=== PATIENT | female | born 1985 | race Caucasian/White ===

== ENCOUNTER 2023-04-02 22:09 | Emergency (ER) | payer SELFPAY ==
[2023-04-02 22:14] VITALS: BP 132/84; PULSE 81; RESP 14; TEMP 36.8; O2SAT 100; BMI 28.3
--- NOTE | 2023-04-02 22:32 | XR_ITS ---
The [address] [address] Patient Name: RIKY ARREAGA MRN: [id number] date: 1985 Sex: F Assigned Patient Location: ER Current Patient Location: ER Accession/Order Number: [id number] Exam Date: 04/02/2023 22:38 Report Date: 04/02/2023 22:52 At the request of: MAO BEAN Procedure: XR hand LT min 3V EXAM: XR hand LT min 3V HISTORY: left hand pain, swelling COMPARISON: None. TECHNIQUE: 3 views of the left hand are performed. FINDINGS: There is no acute fracture. The bony structures are intact. There appears to be mild soft tissue swelling of the fifth digit. XR/XR hand LT min 3V IMPRESSION: Mild soft tissue swelling involving the fifth digit. No acute bony abnormality. Electronically authenticated by: THUY WAY Date: 04/02/2023 22:52
--- NOTE | 2023-04-02 22:33 | ED_ITS ---
HPI - Extremity Problem General Chief complaint: Extremity Problem, Nontraumatic Stated complaint: Upper Extremity Pain Time Seen by Provider: 04/02/23 22:11 Source: patient Mode of arrival: walk-in Limitations: no limitations History of Present Illness HPI Narrative: patient woke with morning and had pain along the 4th and 5th MCP joints of the left hand. No known injury. As the day progressed the pain and swelling worsened and she developed redness to the same area. This steadily worsened throughout the day so she came to the ED to be evaluated. No systemic complaints such as fever or vomiting. Related Data Previous Rx's Medication Instructions Recorded prednisone 20 mg tablet 40 mg (2 x 20 mg) PO DAILY 5 days 04/02/23 #10 tabs Allergies Allergy/AdvReac Type Severity Reaction Status Date / Time No Known Drug Allergies Allergy Verified 04/02/23 22:13 PFSH PFS Social History Smoking status: Current every day smoker Exam Narrative Exam Narrative: Nurses notes and vital signs reviewed and patient is not hypoxic. afebrile General: Well-appearing and in no apparent distress. Skin: Warm, dry, no pallor noted. Eye: Pupils are equal, round and EOMI. No scleral icterus. Cardiovascular: Normal peripheral perfusion. Respiratory: No accessory muscle use or respiratory distress. Musculoskeletal: LEFT HAND - tenderness, swelling and erythema to the left 4th and 5th MCP joints with decreased ROM left 4th and 5th fingers due to the pain. Left wrist, elbow and shoulder with normal ROM, no upper extremity edema/swelling except at the left hand as noted. Neurological: A&O x4. No cranial nerve dysfunction observed. No truncal ataxia. Moves all extremities. Sensation intact. Psychiatric: Cooperative and interactive. Normal mood and affect. Constitutional Vital Signs, click to edit/add: Last Vital Signs Temp 98.3 F 04/02/23 22:14 Pulse 81 04/02/23 22:14 Resp 14 04/02/23 22:14 BP 132/84 04/02/23 22:14 Pulse Ox 100 04/02/23 22:14 O2 Del Method Room Air 04/02/23 22:14 Course Vital Signs Vital signs: Vital Signs Temperature 98.3 F 04/02/23 22:14 Pulse Rate 81 04/02/23 22:14 Respiratory Rate 14 04/02/23 22:14 Blood Pressure 132/84 04/02/23 22:14 Pulse Oximetry 100 12/31/23 22:14 Oxygen Delivery Method Room Air 04/02/23 22:14 Temperature 98.3 F 04/02/23 22:14 Pulse Rate 81 04/02/23 22:14 Respiratory Rate 14 04/02/23 22:14 Blood Pressure 132/84 04/02/23 22:14 Pulse Oximetry 100 04/02/23 22:14 Oxygen Delivery Method Room Air 04/02/23 22:14 MDM - Extremity (Nontraumatic) MDM Narrative Medical decision making narrative: X-rays of the left hand obtained. The patient also had blood drawn to check CBC, sed rate, CRP, uric acid. She was given IM Solu-Medrol and IM Toradol. ESR and CRP elevated. Normal WBC. negative uric acid and no gouty changes on xrays of the left hand. Patient discharged home with prescription for prednisone and the ED nurse applied an belinda wrap to the left hand. ED return if she worsens. Lab Data Attestation: I reviewed the patient's lab results. Labs: Lab Results 04/02/23 Range/Units 22:44 WBC 9.4 (4.0-11.0) 10^3/uL RBC 4.68 (4.20-5.40) 10^6/uL Hgb 13.2 (12.0-16.0) g/dL Hct 39.7 (36.0-48.0) % MCV 84.8 (81.0-99.0) fL MCH 28.2 (26.7-34.0) pg MCHC 33.2 (29.9-35.2) g/dL RDW 13.2 (11.0-15.0) % Plt Count 226 (150-450) 10^3/uL MPV 10.6 (9.5-13.5) fL Neut % (Auto) 54.0 (43.0-75.0) % Lymph % (Auto) 24.9 (20.5-60.0) % [place] % (Auto) 8.0 (1.7-12.0) % Eos % (Auto) 12.3 H (0.9-7.0) % Baso % (Auto) 0.7 (0.2-2.0) % Neut # (Auto) 5.1 (1.4-6.5) 10^3/uL Lymph # (Auto) 2.3 (1.2-3.8) 10^3/uL [place] # (Auto) 0.8 (0.3-0.8) 10^3/uL Eos # (Auto) 1.2 H (0.0-0.7) 10^3/uL Baso # (Auto) 0.1 (0.0-0.1) 10^3/uL Abs Immat Gran (auto) 0.01 (0.00-0.03) 10^3/uL Imm/Tot Granulo (auto) 0.1 (0.0-0.5) % ESR 30 H (<=20) mm/hr Uric Acid 3.9 (2.6-6.0) mg/dL C-Reactive Protein 1.13 H (<=0.50) mg/dL Imaging Data xr left hand: Radiologist's impression: Patient Name: RIKY ARREAGA MRN: [id number] date: 1985 Sex: F Assigned Patient Location: ER Current Patient Location: ER Accession/Order Number: [id number] Exam Date: 04/02/2023 22:38 Report Date: 04/02/2023 22:52 At the request of: MAO BEAN Procedure: XR hand LT min 3V EXAM: XR hand LT min 3V HISTORY: left hand pain, swelling COMPARISON: None. TECHNIQUE: 3 views of the left hand are performed. FINDINGS: There is no acute fracture. The bony structures are intact. There appears to be mild soft tissue swelling of the fifth digit. IMPRESSION: Mild soft tissue swelling involving the fifth digit. No acute bony abnormality. Electronically authenticated by: THUY WAY Date: 04/02/2023 22:52 Discharge Plan Discharge Chief Complaint: Extremity Problem, Nontraumatic Clinical Impression: Metacarpophalangeal joint pain of left hand Patient Disposition: Home, Self-Care Time of Disposition Decision: 23:29 Prescriptions / Home Meds: New prednisone 20 mg tablet 40 mg PO DAILY 5 Days Qty: 10 0RF Instructions: Arthralgia (ED) Stand Alone Forms: Portal Instructions Referrals: Physician,Non-Staff, MD [Primary Care Provider] - 1 week
[2023-04-02] MEDS: METHYLPREDNISOLONE SOD SUCC PF 125 MG/2 ML VIAL IM (22:52)
[2023-04-02] MEDS: KETOROLAC TROMETHAMINE 60 MG/2 ML VIAL IM (22:52)
[2023-04-02 22:55] LABS: Basophils Absolute Auto 0.1 10^3/uL (0.0-0.1); Basophils Percent Auto 0.7 % (0.2-2.0); Eosinophils Absolute Auto 1.2 10^3/uL (0.0-0.7); Eosinophils Percent Auto 12.3 % (0.9-7.0); Hematocrit 39.7 % (36.0-48.0); Hemoglobin 13.2 g/dL (12.0-16.0); Immature Granulocytes Abs Auto 0.01 10^3/uL (0.00-0.03); Immature Granulocytes Pct Auto 0.1 % (0.0-0.5); Lymphocytes Absolute Auto 2.3 10^3/uL (1.2-3.8); Lymphocytes Percent Auto 24.9 % (20.5-60.0); Mean Corpuscular HGB Conc 33.2 g/dL (29.9-35.2); Mean Corpuscular Hemoglobin 28.2 pg (26.7-34.0); Mean Corpuscular Volume 84.8 fL (81.0-99.0); Mean Platelet Volume 10.6 fL (9.5-13.5); Monocytes Absolute Auto 0.8 10^3/uL (0.3-0.8); Neutrophils Absolute Auto 5.1 10^3/uL (1.4-6.5); Platelet Count 226 10^3/uL (150-450); Red Blood Count 4.68 10^6/uL (4.20-5.40); Red Cell Distribution Width 13.2 % (11.0-15.0); White Blood Count 9.4 10^3/uL (4.0-11.0)
[2023-04-02 23:10] LABS: Uric Acid 3.9 mg/dL (2.6-6.0)
[2023-04-02 23:14] LABS: C Reactive Protein 1.13 mg/dL (<=0.50)
[2023-04-02 23:18] LABS: Erythrocyte Sedimentation Rate 30 mm/hr (<=20)
== END 2023-04-03 00:04 | disposition home or self-care (01) ==
PROVIDERS: Emergency Provider Emergency Medicine
DX: M79.642 Pain in left hand (principal); F17.200 Nicotine dependence, unspecified, uncomplicated
CPT/HCPCS: 36415; 73130; 84550; 85025; 85652; 86140; 96372; 99284; J2930

== ENCOUNTER 2024-08-13 14:33 | Emergency (ER) | payer BC, SELFPAY ==
[2024-08-13 14:41] VITALS: BP 120/82; PULSE 125; TEMP 36.6; O2SAT 97; BMI 29.1
--- NOTE | 2024-08-13 14:48 | ED_ITS ---
HPI HPI - General Adult General Chief complaint: Nausea/Vomiting/Diarrhea Stated complaint: VOMITING, NAUSEA, DIARRHEA, BODY ACHES Time Seen by Provider: 08/13/24 14:47 Source: patient Mode of arrival: walk-in Limitations: no limitations History of Present Illness HPI narrative: The patient is a 39-year-old female who presents to the emergency department today for evaluation of concerns for GI symptoms of nausea/vomiting/diarrhea. She endorses her symptoms began overnight and states she has had approximately 3-4 loose stools and 2-3 episodes of emesis. She mention she did take some bmga-uoj-jvzljgk antidiarrheals which did alleviate her diarrhea some in addition to an wluj-lpa-wdvifhq antiemetic which did alleviate her episodes of emesis and she has been tolerating oral intake. She does endorse continuing to feel intermittently nauseous. She denies any fevers but states she has felt flushed at times. No chest pain, shortness of breath, abdominal pain. No urinary symptoms or back/flank pain. She denies any significant medical or surgical history including diabetes. Related Data Previous Rx's ?Medication ?Instructions ?Recorded ondansetron 4 mg disintegrating 4 mg PO Q8H PRN nausea and 08/13/24 tablet vomiting #10 tabs Allergies Allergy/AdvReac Type Severity Reaction Status Date / Time No Known Drug Allergies Allergy Verified 08/13/24 14:46 Review of Systems ROS Status of ROS 10 or more systems reviewed and unremark able except as noted in history and below PFSH PFSH Social History Smoking status: Current every day smoker Little interest or pleasure in doing things: not at all Feeling down, depressed, or hopeless: not at all Exam Narrative Exam Narrative: Constituational: Awake/ alert, no apparent distress, well hydrated HENMT: normocephalic, external ears normal, moist oral mucous membranes and oropharynx normal Eyes: Normal external ears and conjunctivae normal Neck: ROM intact Chest: inspection of chest normal Respiratory: Normal respiratory effort, clear to auscultation bilaterally Cardio: regular rate and regular rhythm GI: soft to palpation and non-tender Back: nontender MSK: ROM intact, +NVI Skin: no rashes or petechiae Neuro: no focal deficits Psych: mental status grossly normal Constitutional Vital Signs, click to edit/add: Last Vital Signs Temp 97.8 F 08/13/24 14:41 Pulse 125 H 08/13/24 14:41 Resp 16 08/13/24 14:41 BP 120/82 08/13/24 14:41 Pulse Ox 97 08/13/24 14:41 O2 Del Method Room Air 08/13/24 14:41 Course Vital Signs Vital signs: Vital Signs Temperature 97.8 F 08/13/24 14:41 Pulse Rate 125 H 08/13/24 14:41 Respiratory Rate 16 08/13/24 14:41 Blood Pressure 120/82 08/13/24 14:41 Pulse Oximetry 97 08/13/24 14:41 Oxygen Delivery Method Room Air 08/13/24 14:41 Temperature 97.8 F 08/13/24 14:41 Pulse Rate 125 H 08/13/24 14:41 Respiratory Rate 16 08/13/24 14:41 Blood Pressure 120/82 08/13/24 14:41 Pulse Oximetry 97 08/13/24 14:41 Oxygen Delivery Method Room Air 08/13/24 14:41 Medical Decision Making MDM Narrative Medical decision making narrative: The patient is a nontoxic and well-appearing 39-year-old female who presented to the emergency department today for evaluation concerns for GI symptoms with nausea/vomiting/diarrhea. Initial examination vital signs overall stable. Supportive measures of Zofran and on reevaluation she reported some improvement in condition. She is tolerating oral intake with no subsequent nausea or vomiting. Discussed consideration for further evaluation in the ER of labs, urinalysis, +/- CT imaging of the abdomen/pelvis vs observation of symptoms and continuation of supportive measures. Patient would like to proceed with supportive measures at this time for likely viral illness, gastroenteritis. Will discharge home with Zofran. Advised on follow-up with patient's primary care provider for reevaluation. Discussed signs and symptoms of any worsening condition and when to consider reevaluation. Patient verbalized an understanding of this and is agreeable with the plan to be discharged home. Medical Records Medical records reviewed: Yes I reviewed the patient's medical records Discharge Plan Discharge Chief Complaint: Nausea/Vomiting/Diarrhea Clinical Impression: Gastroenteritis Patient Disposition: Home, Self-Care Prescriptions / Home Meds: New ondansetron 4 mg tablet,disintegrating 4 mg PO Q8H PRN (Reason: nausea and vomiting) Qty: 10 0RF Print Language: Nigerian Instructions: Gastroenteritis (DC) Additional Instructions: May take Zofran as needed for any nausea or vomiting. May take Tylenol or ibuprofen as needed for any fevers or pain. Stay hydrated and drink plenty of fluids. Recommend following a bland diet as discussed and advance this as tolerated. Please follow-up with your primary care provider for reevaluation as discussed. Referrals: Physician,Non-Staff, MD [Primary Care Provider] - 1 week
--- NOTE | 2024-08-13 14:52 | PC.NURSE ---
pt states she woke up in the middle of the night with diarrhea which progressed to a few bouts of vomiting. is experiencing the same sx. unable to get into PCP today
[2024-08-13] MEDS: ONDANSETRON 4 MG RAPDIS TABLET SL (15:06)
[2024-08-13 15:34] VITALS: PULSE 87; O2SAT 100
--- NOTE | 2024-08-13 15:39 | PC.NURSE ---
pt has not vomited or had diarrhea since being in ER. kept down zofran and has been sipping on water the entire stay.
== END 2024-08-13 15:40 | disposition home or self-care (01) ==
PROVIDERS: Emergency Provider Emergency Medicine
DX: K52.9 Noninfective gastroenteritis and colitis, unspecified (principal); F17.200 Nicotine dependence, unspecified, uncomplicated
CPT/HCPCS: 99283; Q0162

== ENCOUNTER 2024-10-15 10:50 | Outpatient (OUT) | payer BC, SELFPAY ==
--- NOTE | 2024-10-15 10:59 | XR_ITS ---
[facility] [place] [id number] Patient Name: RIKY ARREAGA MRN: [id number] date: 1985 Sex: F Assigned Patient Location: [facility] Current Patient Location: LAB Accession/Order Number: [id number] Exam Date: 10/15/2024 14:58 Report Date: 10/15/2024 15:00 At the request of: FERNANDO METZ DPIvory Procedure: XR foot ARNOLD min 3V 3 views both feet with weightbearing HISTORY: Bilateral foot pain greater on the right. No prior for comparison Mild hallux valgus deformity bilaterally. No acute displaced fracture. Mild degeneration of the toes. Minor midfoot degeneration. Tiny calcaneal spurs. No soft tissue abnormality. XR/XR foot ARNOLD min 3V IMPRESSION: Mild degenerative change. Mild hallux valgus deformity. Impression dictated by: Vick Mercedes M.D. 10/15/2024 3:00 PM Dictation Location: [place] [address] Electronically authenticated by: [id number] Y Date: 10/15/2024 15:00
== END 2024-10-15 10:51 | disposition home or self-care (01) ==
LOC: RAD 10:51
PROVIDERS: Visit Provider Podiatrist Foot & Ankle Surgery
DX: M79.671 Pain in right foot (principal); M79.672 Pain in left foot; M20.12 Hallux valgus (acquired), left foot; M20.11 Hallux valgus (acquired), right foot
CPT/HCPCS: 73630

== ENCOUNTER 2024-10-21 10:33 | Outpatient (OUT) | payer BC, SELFPAY ==
--- NOTE | 2024-10-21 10:47 | MM_ITS ---
Patient Name: RIKY ARREAGA MR#: [id number] : 1985 Exam Date: 10/21/2024 Ordering Doctor: DUSTIN BALDERAS RADIOLOGY REPORT PROCEDURE: MM TOMOSYNTHESIS SCREENING BI COMPARISON: None. INDICATIONS: Screening Calculator Name NCI Breast Cancer Risk Assessment Tool 5 Year Breast Cancer Risk 0.40% Lifetime Breast Cancer Risk 7.40% Personal Breast Cancer No Personal Ovarian Cancer No Treatments None Family Cancers Grandmother-maternal with breast cancer at age ~60; Grandfather-maternal with lung cancer at age 59; Mother with lung cancer at age 55. LOCATION: The [facility] BREAST COMPOSITION: There are scattered areas of fibroglandular density. FINDINGS: RIGHT BREAST: No significant suspicious finding. LEFT BREAST: No significant suspicious finding. DIAGNOSTIC CATEGORY 1--NEGATIVE. RECOMMENDATIONS: ROUTINE MAMMOGRAM AND CLINICAL EVALUATION IN 12 MONTHS. PLEASE NOTE: A NORMAL MAMMOGRAM DOES NOT EXCLUDE THE POSSIBILITY OF BREAST CANCER. A CLINICALLY SUSPICIOUS PALPABLE LUMP SHOULD BE BIOPSIED. Dictated by: Tono Verma MD on 10/21/2024 at 13:37 Approved by: Tono Verma MD on 10/21/2024 at 13:39
== END 2024-10-21 10:34 | disposition home or self-care (01) ==
LOC: MAMMO 10:35
DX: Z12.31 Encounter for screening mammogram for malignant neoplasm of breast (principal); Z80.3 Family history of malignant neoplasm of breast; Z80.1 Family history of malignant neoplasm of trachea, bronchus and lung
CPT/HCPCS: 77063; 77067

== ENCOUNTER 2024-10-21 10:38 | Outpatient (OUT) | payer BC, SELFPAY ==
--- OUTSIDE RECORDS SUMMARY | 2023-03-05 20:00 | XMS_ITS | Continuity of Care Document ---
Author Organization [facility] Address [address] [place] [address] Phone Care Team Providers Care Hatch Boss Name Role Phone LamonthilarioYesi Unavailable Unavailable Allergies, [...] - Active Procedures Procedure Date Acute Detox Outdoor Emergency Care Technician Acute Detox Outdoor Emergency Care Technician Acute Detox Outdoor Emergency Care Technician Acute Detox Outdoor Emergency Care Technician Acute Detox Outdoor Emergency Care Technician Acute Detox Outdoor Emergency Care Technician DRUG TEST PRSMV DIR OPT OBS URINE TEST ROUTINE VENIPUNCTURE Acute Detox Outdoor Emergency Care Technician Acute Detox Outdoor Emergency Care Technician Acute Detox Outdoor Emergency Care Technician Acute Detox Outdoor Emergency Care Technician DRUG TEST PRSMV DIR OPT OBS Acute Detox Outdoor Emergency Care Technician PREV VISIT, EST, AGE 18-39 EST FP [...] Diagnoses Date Provider Providers Copied on Encounter [facility], [address] [place] [address], [id number] , tel: [phone] [facility] No Information Dec-0 4-202 3 Klidas Yesi. [address] [place] [address], [id number] , . tel: [phone] [facility], [address] [place] [address], [id number] , tel: [phone] [facility] No Information Dec-0 3-202 3 Klidas Yesi. [address] [place] [address], [id number] , . tel: [phone] [facility], [address] [place] [address], [id number] , tel: [phone] [facility] No Information Dec-0 2-202 3 Klidas Yesi. [address] [place] [address], [id number] , . tel: [phone] [facility], [address] [place] [address], [id number] , tel: [phone] [facility] No Information Dec-0 1-202 3 Obeydonte Feldman. [address] [place], [address], [place]. tel: [phone] [facility], [address] [place], [place], [id number] , [place] tel: [phone] [facility] No Information 0 3 Neil Key. [address] [place], [place], [id number] , [place]. tel: [phone] [facility], [address] [place], [place], [id number] , [place] tel: [phone] [facility] No Information 3 Neil Key. [address] [place], [place], [id number] , [place]. tel: [phone] [facility], [address] [place], [place], [id number] , [place] tel: [phone] [facility] Opioid dependence with withdrawalEncounter for test, result negative 0 Pavlock DO Max. [address] [place], [place], [id number] , [place]. tel: [phone] [facility], [address] [place], [place], [id number] , [place] tel: [phone] [facility] Opioid dependence with withdrawalEncounter for test, result negative 0 Pavlock DO Max. [address] [place], [place], [id number] , [place]. tel: [phone] [facility], [address] [place], [place], [id number] , [place] tel: [phone] [facility] fentanyl dependence (chief complaint) Opioid dependence with withdrawal 0 Jai Childress. [address] [place], [place], [id number] , [place]. tel: [phone] [facility], [address] [place], [place], [id number] , [place] tel: [phone] [facility] Opioid dependence with withdrawal 0 Pavlock DO Max. [address] [place], [place], [id number] , [place]. tel: [phone] [facility], [address], [place], [id number] , [place] tel: [phone] [facility] Opioid dependence with withdrawal 0 Pavlock DO Max. [address] [place], [place], [id number] , [place]. tel: [phone] [facility], [address] [place], [place], [id number] , [place] tel: [phone] [facility] Opioid dependence with withdrawalEncounter for test, result negative 0 Pavlock DO Max. [address] [place], [place], [id number] , [place]. tel: [phone] [facility], [address] [place], [place], [id number] , [place] tel: [phone] [facility] lab result (chief complaint) No Information 4 [facility] Abigail. [address] [place], [place], [id number] , [place]. tel: [phone] PREV VISIT, [facility], AGE 18-39 [facility], [address] [place], [place], [id number] , [place] tel: [phone] [facility] annual visit (chief complaint) Gynecological ExaminationContact with or exposure to venereal diseases 4 [facility] Abigail. [address] [place], [place], [id number] , [place]. tel: [phone] OFFICE/OUTPA TIENT VISIT, [facility], [address], [place], [id number] , [place] tel: [phone] [facility] No Information 2 Lamp Brenda. [address] [place], [place], [id number] , [place]. tel: [phone] OFFICE/OUTPA TIENT VISIT, [facility], [address], [place], [id number] , [place] tel: [phone] [facility] Routine PN Visit (chief complaint) Supervision of other normal 2 Jesus Gutierrez. [address] [place], [place], [id number] , [place]. tel: [phone] OFFICE/OUTPA TIENT VISIT, [facility], [address], [place], [id number] , [place] tel: [phone] [facility] No Information 2 Jesus Gutierrez. [address] [place] [address], [id number] , [place]. tel: [phone] [facility], [address] [place] [address], [id number] , [place] tel: [phone] [facility] No Information 2 Visci DO Warren. [address], [place], [id number] , [place]. tel: [phone] OFFICE/OUTPA TIENT VISIT, [facility], [address] [place] [address], [id number] , [place] tel: [phone] [facility] No Information 2 Jesus Gutierrez. [address] [place] [address], [id number] , [place]. tel: [phone] [facility], [address] [place] [address], [id number] , [place] tel: [phone] [facility] Screening examination for pulmonary tuberculosis 2 Visci DO Warren. [address] [place] [address], [id number] , [place]. tel: [phone] Family History Family Member Type Diagnosis Age [...] lung Payers Payer name Insurance type Covered republican ID Arsenio jackson(s) Flash Funded 09 [id number] Social History Type Description Quantity Date Captured Comments Sex Female Smoking Status No Information Sexual Orientation Straight or heterosexual Gender Identity Female Chief Complaint And Reason For Visit No Information Reason For Referral Reason For Referral No Information Plan Of Treatment Date Type Action Status Goal Tdap. Due on due Goal Influenza vaccine. Due on due Goal SUPERVISOR BURLING AND JOINING exam. Due on due Goal RLP. Due on due Goal H&P. Due on due Goal Breast exam. Due on due Goal Depression screening. Due on due Goal RLP. Due on due Goal Breast exam. Due on due Goal H&P. Due on due Goal Depression screening. Due on due Goal Influenza vaccine. Due on due Goal Tdap. Due on due Goal SUPERVISOR BURLING AND JOINING exam. Due on due Goal Breast exam. Due on due Goal RLP. Due on due Goal SUPERVISOR BURLING AND JOINING exam. Due on due Goal Tdap. Due on due Goal Influenza vaccine. Due on due Goal Depression screening. Due on due Goal H&P. Due on due Goal RLP. Due on due Goal SUPERVISOR BURLING AND JOINING exam. Due on due Goal Depression screening. Due on due Goal H&P. Due on due Goal Influenza vaccine. Due on due Goal Tdap. Due on due Goal Breast exam. Due on due Goal Tdap. Due on due Goal Breast exam. Due on due Goal Depression screening. Due on due Goal SUPERVISOR BURLING AND JOINING exam. Due on due Goal H&P. Due on due Goal RLP. Due on due Goal Influenza vaccine. Due on due Goal Tdap. Due on due Goal Influenza vaccine. Due on due Goal RLP. Due on due Goal Depression screening. Due on due Goal PPD (TST). Due on 2 due Goal H&P. Due on due Goal SUPERVISOR BURLING AND JOINING exam. Due on due Goal Breast exam. [...]
--- OUTSIDE RECORDS SUMMARY | 2024-09-02 10:00 | XMS_ITS ---
Author Organization [facility] Address [address] [place] [address] Care Team Providers Care Deputy Clerk Name Role Phone Eduin Conti Primary Care Provider REASON FOR VISIT 2 WEEK LAB REVIEW Encounters Encounter Location Date Provider Diagnosis [facility] [address] [place] [address] 09/02/2024 Eduin Conti Plan Of Treatment No Information Progress Notes * GIBSONRIKYDOB: 6 (39 yo F)Acc No.[id number]:09/02/2024 Progress Notes Patient: RIKY ARNETT Appointment Provider: Jessee Conti MD :1985 A ge:39 Y S ex:Female Date:09/02/2024 Address:[address] [id number] Subjective: * Chief Complaints: * 1 . 2 WEEK LAB REVIEW. * Medical History: Objective: * Vitals: Assessment: Plan: * Treatment: * Images: * Electronic signature of Demetrius Conti MD on 10/15/2024 at 10:49 AM EDT Sign off status: Pending * Appointment Provider: Jessee Conti MD Date: 09/02/2024 Generated for Adolfoi wendy/Viky/eTransmitting on: 10/15/2024 10:49 AM EDT
--- OUTSIDE RECORDS SUMMARY | 2024-09-02 10:00 | XMS_ITS ---
Author Organization [facility] Address [address] [place] [address] Care Team Providers Care Diamond Saw Operator Name Role Phone Eduin Conti Primary Care Provider REASON FOR VISIT 2 WEEK LAB REVIEW Encounters Encounter Location Date Provider Diagnosis [facility] [address] [place] [address] 09/02/2024 Eduin Conti Plan Of Treatment No Information Progress Notes * GIBSONRIKYDOB: 6 (39 yo F)Acc No.[id number]:09/02/2024 Progress Notes Patient: RIKY ARNETT Appointment Provider: Jessee Conti MD :1985 A ge:39 Y S ex:Female Date:09/02/2024 Address[address] [id number] Subjective: * Chief Complaints: * 1 . 2 WEEK LAB REVIEW. * Medical History: Objective: * Vitals: Assessment: Plan: * Treatment: * Images: * Electronic signature of Demetrius Conti MD on 10/21/2024 at 10:40 AM EDT Sign off status: Pending * Appointment Provider: Jessee Conti MD Date: 09/02/2024 Generated for Adolfoi wendy/Viky/eTransmitting on: 10/21/2024 10:40 AM EDT
--- OUTSIDE RECORDS SUMMARY | 2024-10-15 09:12 | XMS_ITS ---
Author Organization [facility] Address [address] [place] [address] Care Team Providers Care Psychotherapist Name Role Phone Eduin Conti Primary Care Provider [phone] REASON FOR VISIT MAMMO Encounters Encounter Location Date Provider Diagnosis [facility] [address] [place] [address] 10/15/2024 Eduin Conti Encounter for screening mammogram for malignant neoplasm of breast Z12.31 Assessments Encounter Date Diagnosis (ICD Code) Assessment Notes Treatment Notes Treatment Clinical Notes Section Notes 10/15/2024 Encounter for screening mammogram for malignant neoplasm of breast (ICD-10 - Z12.31) Plan Of Treatment Pending Test Test Name Order Date MM screening mammo BI w/CAD 10/15/2024 Progress Notes * RIKY ARREAGADOB: 6 (39 yo F)Acc No.[id number]:10/15/2024 Patient: RIKY ARNETT :1985 A ge:39 Y S ex:Female Address:[facility] [address] [place], [address] Subjective: * Chief Complaints: * M AMMO * Medical History: * Surgical History: * Hospitalization/Major Diagno stic Procedure: * Medications: Objective: * Vitals: * Physical Examination: Assessment: * Assessment: 1. E ncounter for screening mammogram for malignant neoplasm of breast - Z12.31 (Primary) ? Plan: * Treatment: * Procedure Codes: * true * Date: Generated for Printi ng/Faxing/eTransmitting on: 0 10/21/2024 10:40 AM EDT
--- OUTSIDE RECORDS SUMMARY | 2024-10-15 10:50 | XMS_ITS | Clinical Summary ---
Author Organization [facility] Address [id number] [address] [place] [address] Care Team Providers Care Bleach Range Operator Name Role Phone No Pcp, No Pcp Primary Care Provider Unavailabl e Allergies No known active allergies Medications medroxyPROGESTE Bernard (DEPO-PROVERA) 150 mg/mL injection Inject 150 mg into the appropriate muscle every 3 (three) months. Active sulfamethoxazol e-trimethoprim (BACTRIM DS) 800-160 mg per tablet Take 1 tablet by mouth 2 (two) times a day. Active Social History Tobacco Use Types Packs/Day Years Used Date Smoking Tobacco: Every Day Smokeless Tobacco: Never Childcare Answer Date Recorded Childcare Unknown 09/12/2018 Employment Answer Date Recorded Employment Unknown 09/12/2018 Purpose - Life Answer Date Recorded Purpose and direction in life Unknown Comments No Sex and Gender Information Value Date Recorded Sex Assigned at Not on file Legal Sex Female 11:36 AM EDT Gender Identity Not on file Sexual Orientation Not on file Last Filed Vital Signs Vital Sign Reading Time Taken Comments Blood Pressure 106/67 03/20/2017 10:33 AM EST Pulse 76 03/20/2017 10:33 AM EST Temperature 36.7 C (98.1 F) 03/20/2017 10:33 AM EST Respiratory Rate 16 03/20/2017 10:33 AM EST Oxygen Saturation 98% 03/20/2017 10:33 AM EST Inhaled Oxygen Concentration - - Weight 72.7 kg (160 lb 4.4 oz) 03/20/2017 10:33 AM EST Height 165.1 cm (5' 5 ) 03/20/2017 10:33 AM EST Body Mass Index 26.67 03/20/2017 10:33 AM EST Plan of Treatment Upcoming Encounters Date Type Department Care Team (Late st Contact Info) Description 10/17/2024 11:00 AM EDT Office Visit [facility] [address] [id number] Frances Bee, MOTOR INSTALLER-PROGRAM OFFICER [address] [facility] [address] [place] [address] Health Maintenance Due Date Last Done Comments Depression Screening 1997 Tobacco Screening 1997 Adult BMI Screening 2003 DTaP,Tdap and Td Vaccines (1 - Tdap) 2004 Pap Smear 2006 Influenza Vaccine 12/02/2024 Medical Devices Not on file Insurance [facility] [address] [address] [address] * Guarantor: Francheska Diego Account Type Relation to Patient Date of Phone Billing Address Other Self 1985 [address] [place] [address] Care Teams Bleach Range Operator Relationship Specialty Start Date End Date No Pcp, [place] [address] PCP - General Family Medicine 10/07/16
--- OUTSIDE RECORDS SUMMARY | 2024-10-15 10:50 | XMS_ITS | Clinical Summary ---
Author Organization [facility] Address [address] [place] [address] Care Team Providers Care Plaster Lather Name Role Phone Franc Coppola MD Primary Care Provider [phone] Active Problems Problem Noted Date Diagnosed Date Acquired hallux valgus 10/19/2022 Bilateral carpal tunnel syndrome 10/19/2022 Bunion of left foot 10/19/2022 Contracture of left Achilles tendon 10/19/2022 Contracture, right ankle 10/19/2022 Degeneration, intervertebral disc, lumbar 2022 Fibrocystic breast changes 10/19/2022 Onychomycosis due to dermatophyte 10/19/2022 Other specified re lated conditions, first trimester ([facility]) 10/19/2022 Vaginal bleeding 10/19/2022 Family History Medical History Relation Name Comments No Known Problems Father Brain cancer Maternal Grandfather Lung cancer Maternal Grandfather Breast cancer Maternal Grandmother Brain cancer Mother Breast cancer Mother Lung cancer Mother No Known Problems Paternal Grandfather No Known Problems Paternal Grandmother Relation Name Status Comments Daughter Alive x3 Father Maternal Grandfather Maternal Grandmother Mother Paternal Grandfather Paternal Grandmother Sister x2 Son Alive Social History Tobacco Use Types Packs/Day Years Used Date Smoking Tobacco: Every Day Cigarettes Smokeless Tobacco: Never Tobacco Cessation:Ready to Q uit: Not Asked; Counseling Given: Not Answered Comments:6-10 cigs/day Alcohol Use Standard Drinks/Week Comments Not Currently 0 (1 standard drink = 0.6 oz pure alcohol) Caffeine intake: 1-2 cups per day coffee, soda/pop Education Answer Date Recorded What is the highest level of school you have completed or the highest degree you have received? Some college, no degree 10/19/2022 Comments Unknown Sex and Gender Information Value Date Recorded Sex Assigned at Not on file Legal Sex Female 7:09 PM EDT Gender Identity Not on file Sexual Orientation Not on file Last Filed Vital Signs Vital Sign Reading Time Taken Comments Blood Pressure 108/68 04/28/2021 12:00 PM EST Pulse - - Temperature - - Respiratory Rate - - Oxygen Saturation - - Inhaled Oxygen Concentration - - Weight 90.7 kg (200 lb) 12/16/2021 12:00 PM EDT Height 166.4 cm (5' 5.5 ) 12/16/2021 12:00 PM ED T Body Mass Index 32.78 12/16/2021 12:00 PM EDT Plan of Treatment Health Maintenance Due Date Last Done Comments Medicare Annual Wellness (AWV) 1985 Pap Smear 2006 Influenza Vaccine (#1) 2024 Cervical Cancer Screening 01/06/2025 HPV/Cotest 01/06/2025 01/07/2020 Procedures Procedure Name Priority Date/Time Associated Diagnosis Comments THINPREP TIS PAP REFLEX HPV MRNA E6/E7 (95752) Routine 01/07/2020 from Last 3 Months or Most Recently Relevant to Health Maintenance Results * THINPREP TIS PAP REFLEX HPV MRNA E6/E7 (22345) (01/07/2020) CLINICAL INFORMATION: None given [facility] LMP: 01/05/20 [facility] PREV. PAP: 2019 NEGATIVE [facility] PRE[facility]. BX: None given [facility] SOURCE: Cervix, Endocervix [facility] STATEMENT OF ADEQUACY: SEE COMMENT [facility] Comment: Satisfactory for evaluation. Endocervical/transformation zone component absent. INTERPRETATION /RESULT: Negative for intraepithelial lesion or malignancy. [facility] COMMENT: This Pap test has been evaluated with computer assisted technology. [facility] CYTOTECHNOLOGI ST: SEE COMMENT [facility] Comment: JJK, CT(ASCP) CT screening location: [email or web address] [address]. COMMENT SEE COMMENT [facility] Comment: EXPLANATORY NOTE: The Pap is a screening test for cervical cancer. It is not a diagnostic test and is subject to false negative and false positive results. It is most reliable when a satisfactory sample, regularly obtained, is submitted with relevant clinical findings and history, and when the Pap result is evaluated along with historic and current clinical information. 01/07/2020 us Brett Brenner [facility] Final Result [facility] from Last 3 Months or Most Recently Relevant to Health Maintenance Insurance [employer] Care Teams Plaster Lather Relationship Specialty Start Date End Date Franc Coppola MD [address] [facility] [address] [place] [address] PCP - General Internal Medicine 10/19/22
--- OUTSIDE RECORDS SUMMARY | 2024-10-15 10:50 | XMS_ITS | Patient Health Record ---
Author Organization [facility] Address [address] [place] [address] Care Team Providers Care Shoe Dresser Name Role Phone Eduin Conti Primary Care Provider [phone] Allergies No Known Allergies Reason For Referral No Information Social History Tobacco Use: Social History Observation Description Date Details (start date - stop date) Current Smoker NA - NA Sexual Hx: Question Answer Notes Had sex in the last 12 months (vaginal, oral, or anal)? Yes with Men only Use protection? No Have you ever had an STD? No LMP: 08/01/2024 AUDIT-C (Standard) Question Answer Notes Did you have a drink containing alcohol in the p ast year? No Points 0 Interpretation Negative Tobacco Control (Standard) Question Answer Notes Tobacco use: Current smoker How often do you smoke cigarettes? Every day How many cigarettes a day do you smoke? 6-10 How soon after you wake up d o you smoke your first cigarette? Within 5 minutes Are you interested in quitting? Thinking about q uitting Vital Signs Heart Rate 85 /min 08/19/2024 Temperature 98.2 degrees Fahrenheit 08/19/2024 Respiratory Rate 18 /min 08/19/2024 Oximetry 98 % 08/19/2024 Blood pressure diastolic 94 mm Hg 08/19/2024 Height 65.5 in 08/19/2024 Blood pressure systolic 134 mm Hg 08/19/2024 Weight 185.4 lbs 08/19/2024 BMI 30.38 kg/m2 08/19/2024 Encounters Encounter Location Date Provider Diagnosis [facility] [address] [place] [address] 09/02/2024 Eduin Conti [facility] [address] [place] [address] 08/19/2024 Eduin Conti Encounter to establish care Z76.89 ; Diabetes mellitus screening Z13.1 and Oral thrush B37.0 Assessments Encounter Date Diagnosis (ICD Code) Assessment Notes Treatment Notes Treatment Clinical Notes Section Notes 08/19/2024 Diabetes mellitus screening (ICD-10 - Z13.1) 08/19/2024 Encounter to establish care (ICD-10 - Z76.89) 08/19/2024 Oral thrush (ICD-10 - B37.0) 08/19/2024 Other Discussed patient concerns regarding her recent ER visit and establishing care. I encouraged her to continue drinking plenty of fluids and getting adequate rest. We will order updated labs to establish a baseline of care. I will also order a short course of Diflucan to treat her oral thrush. We will follow up on her blood pressure at her next appointment. Patient is agreeable with this plan and denies any additional questions or concerns. She will follow up in 2 weeks. Body Mass Index: Care Instructions material was published Plan Of Treatment Pending Test Test Name Order Date A1C with Estimated Average Glu 5 Comprehensive Metabolic Panel 08/19/2024 Lipid Panel 08/19/2024 Complete Blood Count Auto Diff 5 Insurance Providers Payer Name Payer Address Payer Phone Subscriber Number Group Number Insured Name Patient Relationship to Insured Coverage Start Date Coverage End Date ANTHEM Primary [address] [place] [phone] [id number] RIKY ARREAGA Self - patient is the insured 4 Medical (General) History Surgical History Surgery Date(Month/Year) carpal tunnel release- right
--- OUTSIDE RECORDS SUMMARY | 2024-10-17 11:00 | XMS_ITS | Encounter Summary ---
Author Organization [employer] s tem Address [facility] [place]-[id number] [address] [place] [address] Care Team Providers Care Human Resources Temp Name Role Phone No Pcp, No Pcp Primary Care Provider Unavailabl e Reason for Visit * Reason Comments Gynecologic Exam Encounter Details Date Type Department Care Team (Latest Contact Info) Description 10/17/2024 11:00 AM EDT Office Visit [facility] Obstetrics/Gynecolog y [address] [facility] [id number] Frances Bee, PATROLLER-COMMANDING OFFICER [employer] [address] [place], [place] [id number] Well woman exam with routine gynecological exam (Primary Dx); Encounter for screening mammogram for malignant neoplasm of breast; Encounter for initial prescription of contraceptive pills; Menorrhagia with regular cycle; Standardized adult depression screening tool completed; Screening for cervical cancer; Pap smear, as part of routine gynecological examination Social History Tobacco Use Types Packs/Day Years Used Date Smoking Tobacco: Every Day Cigarettes Smokeless Tobacco: Never Tobacco Cessation:Ready to Q uit: Not Asked; Counseling Given: Not Answered Alcohol Use Standard Drinks/Week Comments Not Currently 0 (1 standard drink = 0.6 oz pur e alcohol) PHQ-2 Answer Date Recorded Total Score 1 10/17/2024 Childcare Answer Date Recorded Childcare Unknown 09/12/2018 Employment Answer Date Recorded Employment Unknown 09/12/2018 Hunger Screening Answer Date Recorded Within the past 12 months we worried whether our food would run out before we got money to buy more. Never True 10/17/2024 Within the past 12 months th e food we bought just didn't last and we didn't have money to get more. Never True 10/17/2024 Purpose - Life Answer Date Recorded Purpose and direction in life Unknown Comments No Sex and Gender Information Value Date Recorded Sex Assigned at Not on file Legal Sex Female 11:36 AM EDT Gender Identity Not on file Sexual Orientation Not on file documented as of this encounter Last Filed Vital Signs Vital Sign Reading Time Taken Comments Blood Pressure 102/68 10/17/2024 11:03 AM EDT Pulse - - Temperature - - Respiratory Rate - - Oxygen Saturation - - Inhaled Oxygen Concentration - - Weight 81.8 kg (180 lb 6.4 oz) 10/17/2024 11:03 AM EDT Height 166.4 cm (5' 5.5 ) 10/17/2024 11:03 AM ED T Body Mass Index 29.56 10/17/2024 11:03 AM EDT documented in this encounter Patient Instructions * Attachments The following attachments cannot be sent through Care Everywhere. * Calcium and vitamin D for bone health (Tristanian) * Drospirenone, ADULT (Tristanian) * Quitting smoking for adults (Tristanian) documented in this encounter Progress Notes * Frances Bee, SIDNEY-COMMANDING OFFICER [employer] - 10/17/2024 11:00 AM EDT Annual Well Woman Visit 10/17/2024 Deborah Diego is a pleasant 39 y.o. female new patient who presents for annual body liner exam. Periods are regular every 28-30 days, lasting 5 days. Cyclic symptoms include heavy bleeding with large clots, anxiety, bloating, irritability, moodiness, and pelvic pain. Denies intermenstrual bleeding, spotting, or abnormal discharge. Denies pelvic pain. Patient declines STD testing today. Complaints today: Pt is passing clots during her periods. Wants control. Relationship status: in a relationship The patient reports that there is not domestic violence in her life. 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 Smoker (less than 1/4 ppd x 25 yrs), cutting back, planning to quit Children YES How many 4 Current contraception: none History of abnormal Pap smear: yes 10 years ago Last pap: 2019 negative Regular self breast exam: sometimes Last mammogram: yes Family history of breast cancer: yes - Maternal Grandmother, and maternal great aunt Family history of uterine or ovarian cancer: no Family history of pancreatic or prostate cancer: no Family history of colon cancer: no HPV vaccinated: no PHQ9 depression screenin OB History 5 Para 4 Term 4 AB Living 4 SAB IAB Ectopic Multiple Live Births 4 The following portions of the patient's history were reviewed and updated as appropriate: allergies, current medications, past family history, past medical history, past social history, past surgicalhistory and problem list. MEDICAL HX Past Medical History: Diagnosis Date History of blood transfusion SURGICAL HX Past Surgical History: Procedure Laterality Date SECTION WISDOM TOOTH EXTRACTION FAMILY HX Family History Problem Relation Age of Onset No Known Problems Father Cancer Mother 58 Lung cancer Mother MEDS Current Outpatient Medications Medication Sig Dispense Refill drospirenone, contraceptive, 4 mg (28) tablet Take 4 mg by mouth in the morning. 84 tablet 3 No current facility-administered medications for this visit. ALLERGIES No Known Allergies Review of Systems Constitutional: Negative. Respiratory: Negative. Negative for chest tightness and shortness of breath. Cardiovascular: Negative. Negative for chest pain and palpitations. Gastrointestinal: Negative. Negative for constipation, diarrhea, nausea and vomiting. Endocrine: Negative. Genitourinary: Positive for menstrual problem. Negative for dyspareunia and pelvic pain. Musculoskeletal: Negative. Skin: Negative. Allergic/Immunologic: Negative. Neurological: Negative. Hematological: Negative. Psychiatric/Behavioral: Negative. Objective BP 102/68 Ht 166.4 cm (5' 5.5 ) Wt 81.8 kg (180 lb 6.4 oz) BMI 29.56 kg/m?? Physical Exam Vitals and nursing note reviewed. Constitutional: Appearance: Normal appearance. HENT: Head: Normocephalic and atraumatic. Cardiovascular: Rate and Rhythm: Normal rate and regular rhythm. Pulses: Normal pulses. Heart sounds: Normal heart sounds. Pulmonary: Effort: Pulmonary effort is normal. Breath sounds: Normal breath sounds. Chest: Breasts: Breasts are symmetrical. Right: Normal. No mass, skin change or tenderness. Left: Normal. No mass, skin change or tenderness. Abdominal: General: Bowel sounds are normal. Palpations: Abdomen is soft. Genitourinary: General: Normal vulva. Labia: Right: No rash or lesion. Left: No rash or lesion. Vagina: Normal. Cervix: Normal. Uterus: Normal. Not enlarged and not tender. Adnexa: Right adnexa normal and left adnexa normal. Right: No mass, tenderness or fullness. Left: No mass, tenderness or fullness. Musculoskeletal: General: Normal range of motion. Cervical back: Normal range of motion and neck supple. Skin: General: Skin is warm and dry. Neurological: Mental Status: She is alert and oriented to person, place, and time. Psychiatric: Mood and Affect: Mood normal. Speech: Speech normal. Behavior: Behavior normal. Thought Content: Thought content normal. Judgment: Judgment normal. Assessment/Plan: Francheska was seen today for gynecologic exam. Diagnoses and all orders for this visit: Well woman exam with routine gynecological exam Encounter for screening mammogram for malignant neoplasm of breast - Mammography screening bilateral with CAD Encounter for initial prescription of contraceptive pills - POCT , urine - drospirenone, contraceptive, 4 mg (28) tablet; Take 4 mg by mouth in the morning. Menorrhagia with regular cycle - Ultrasound pelvic with transvaginal; Future Standardized adult depression screening tool completed Screening for cervical cancer Pap smear, as part of routine gynecological examination - Thin Prep Pap Test BMI is above average; Discussed eating tips for weight loss and and exercise steps. Recommend breast self-awareness. Notify provider for any breast changes or concerns Discussed healthy lifestyle modifications. Educational material distributed. Follow up in 1 year for annual body liner exam. Follow up as needed. Await pap. Discussed ASCCP screening guidelines. Discussed taking a multivitamin. Discussed Calcium and Vitamin D for prevention of osteoporosis. Discussed recommendations for HPV vaccine between 9-45 yo. [facility]. Discussed need for yearly mammogram after 40 yo. Encouraged smoking cessation. Discussed colon cancer screening recommendations to begin at 45 yo, patient to discuss with PCP. All questions answered. MICHAELA Gupta APRN-[place] Kerr 10/17/24 1210 documented in this encounter Plan of Treatment Pending Results Name Type Priority Associated Diagnoses Date /Time High Risk HPV w/Barb Lab Routine Pap smear, as part of routine gynecological examination 10/17/2024 4:58 AM EDT Scheduled Orders Name Type Priority Associated Diagnoses Orde r Schedule Mammography screening bilateral with CAD Imaging Routine Encounter for screening mammogram for malignant neoplasm of breast Ordered: 10/17/2024 Ultrasound pelvic with transvaginal Imaging Routine Menorrhagia with regular cycle Expected: 10/17/2024, Expires: 10/17/2025 documented as of this encounter Procedures Procedure Name Priority Date/Time Associated Diagnosis Comments THIN PREP PAP TEST Routine 10/17/2024 12 :25 PM EDT Pap smear, as part of routine gynecological examination PM AMB POCT , URINE (NUCG) Routine 10/17/2024 11:27 AM EDT Encounter for initial prescription of contraceptive pills documented in this encounter Results * Thin Prep Pap Test (10/17/2024 12:25 PM EDT) Case Report Gynecologic Cytology Report Case: [id number] Authorizing Provider: ALEXANDRIA Schwarz Collected: 10/17/2024 1225 [facility] Received: 10/17/2024 1226 Obstetrics/Gy necology First Screen: SHARLA Parker(ASCP) Specimen: Thin Prep Pap, Cervix/Endocer vix 1:16 PM EDT [facility] Specimen Adequacy Satisfactory for evaluation, endocervical/t ransformation zone component present 1:16 PM EDT [facility] Interpretation NEGATIVE FOR INTRAEPITHELIA L LESION OR MALIGNANCY NEGATIVE FOR INTRAEPITHELIA L LESION OR MALIGNANCY, UNSATISFACTORY , EPITHELIAL CELL ABNORMALITY, GLANDULAR EPITHELIAL CELL ABNORMALITY. , SQUAMOUS EPITHELIAL CELL ABNORMALITY, NO DIAGNOSIS RENDERED. 1:16 PM EDT [facility] at 1316 EDT Additional Information The Pap test is a screening test with an inherent, but low, probability of error. The Pap test is primarily effective for the diagnosis and prevention of squamous cell carcinoma. Regular screening is critical for prevention. ThinPrep liquid-based slides, which meet the Probation Manager criteria for automated screening, have been screened by the EPIS Imaging System (as of 12/18/06) along with an additional manual rescreening by a cytotechnologi st and, if indicated, by a pathologist. 5 1:16 PM EDT [facility] Clinical Information LAST PAP 10 YEARS AGO 5 1:16 PM EDT [facility] Embedded Images 5 1:16 PM EDT [facility] Thin Prep (Cervix/Endocerv ix) 10/17/2024 12:25 PM EDT 10/17/2024 12:26 PM EDT us Frances Bee PATROLLER-COMMANDING OFFICER [employer] PATHOLOGY/CYTOLOGY ORDER DELISA Final Result [facility] [address] [place] [address], [place] [phone] * POCT , urine (10/17/2024 11:27 AM EDT) External Poct Urine Negative MANUALLY TRANSCRIBED RESULTS Urine 10/17/2024 11:2 7 AM EDT Frances Bee PATROLLER-COMMANDING OFFICER [employer] POINT OF CARE TEST ORDER DELISA Final Result MANUALLY TRANSCRIBED RESULTS documented in this encounter Visit Diagnoses Diagnosis Well woman exam with routine gynecological exam- Primary Routine gynecological examination Encounter for screening mammogram for malignant neoplasm of breast Encounter for initial prescription of contraceptive pills Menorrhagia with regular cycle Standardized adult depression screening tool completed Screening for cervical cancer Screening for malignant neoplasm of the cervix Pap smear, as part of routine gynecological examination Screening for malignant neoplasm of the cervix documented in this encounter Additional Health Concerns Assessment Noted Time PHQ-9 Depression Total Score: 1 10/18/19 25 11:52 AM EDT A Body Mass Index follow-up plan has been documented for the patient 10/17/2024 12:10 PM EDT documented as of this encounter Care Teams Human Resources Temp Relationship Specialty Start Date End Date No Pcp, [place] [address] PCP - General Family Medicine 10/07/16 documented as of this encounter
--- OUTSIDE RECORDS SUMMARY | 2024-10-21 10:40 | XMS_ITS | Encounter Summary ---
Author Organization Remark s tem Address [facility] [id number] [address] [place] [address] Care Team Providers Care Personal Service Representative Name Role Phone No Pcp, No Pcp Primary Care Provider Unavailabl e Encounter Details Date Type Department Care Team (Late st Contact Info) Description 10/18/2024 Orders Only [facility] Obstetrics/Gynecology [address] [place] [address] Sharee Copeland RN Pap smear, as part of routine gynecological examination (Primary Dx) Social History Tobacco Use Types Packs/Day Years Used Date Smoking Tobacco: Every Day Cigarettes Smokeless Tobacco: Never Alcohol Use Standard Drinks/Week Comments Not Currently [...] on file documented as of this encounter Progress Notes * Sharee Copeland RN - 10/18/2024 1:39 PM EDT HPV Order placed. - Sharee Copeland RN 10/18/24 1:47 PM documented in this encounter Plan of Treatment Pending Results Name Type Priority Associated Diagnoses Date /Time High Risk HPV w/Barb Lab Routine Pap smear, as part of routine gynecological examination 10/17/2024 4:58 AM EDT Scheduled Orders Name Type Priority Associated Diagnoses Orde r Schedule High Risk HPV w/Barb Lab Routine Pap smear, as part of routine gynecological examination 1 Occurrences starting 10/18/2024 until 10/18/2025 documented as of this encounter Visit Diagnoses Diagnosis Pap smear, as part of routine gynecological examination- Primary Screening for malignant neoplasm of the cervix documented in this encounter Additional Health Concerns Assessment Noted Time PHQ-9 Depression Total Score: 1 10/18/19 11:52 AM EDT A Body Mass Index follow-up plan has been documented for the patient 10/17/2024 12:10 PM EDT documented as of this encounter Care Teams Personal Service Representative Relationship Specialty Start Date End Date No Pcp, [place] [address] PCP - General Family Medicine 10/07/16 documented as of this encounter
--- OUTSIDE RECORDS SUMMARY | 2024-10-21 10:40 | XMS_ITS | Encounter Summary ---
Author Organization [facility] Address [facility] [id number] [address] [place] [address] Care Team Providers Care Nuclear Equipment Test Engineer Name Role Phone No Pcp, No Pcp Primary Care Provider Unavailabl e Encounter Details Date Type Department Care Team (Late st Contact Info) Description 10/18/2024 Results [facility] [address] [place] [address] Sharee Copeland RN POCT , urine, Thin Prep Pap Test Social History Tobacco Use Types Packs/Day Years [...] on file documented as of this encounter Plan of Treatment Not on file documented as of this encounter Visit Diagnoses Not on filedocumented in this encounter Additional Health Concerns Assessment Noted Time PHQ-9 Depression Total Score: 1 10/18/19 25 11:52 AM EDT A Body Mass Index follow-up plan has been documented for the patient 10/17/2024 12:10 PM EDT documented as of this encounter Care Teams Nuclear Equipment Test Engineer Relationship Specialty Start Date End Date No Pcp, [place] [id number] PCP - General Family Medicine 10/07/16 documented as of this encounter
--- OUTSIDE RECORDS SUMMARY | 2024-10-21 10:40 | XMS_ITS | Encounter Summary ---
Author Organization [facility] Address [facility] [id number] [address] [place] [address] Care Team Providers Care Dot Compliance Manager Name Role Phone No Pcp, No Pcp Primary Care Provider Unavailabl e Encounter Details Date Type Department Care Team (Latest Contact Info) Description 10/17/2024 Travel Social History Tobacco Use Types Packs/Day Years [...] documented as of this encounter Care Teams Dot Compliance Manager Relationship Specialty Start Date End Date No Pcp, [place] [address] PCP - General Family Medicine 10/07/16 documented as of this encounter
--- OUTSIDE RECORDS SUMMARY | 2024-10-21 10:40 | XMS_ITS | Encounter Summary ---
Author Organization [employer] Address [facility] [id number] [address] [place] [address] Care Team Providers Care [employer] Name Role Phone No Pcp, No Pcp Primary Care Provider Unavailabl e Encounter Details Date Type Department Care Team (Late st Contact Info) Description 10/21/2024 Telephone [facility] Obstetrics/Gynecology [address] [place] [id number] Frances Bee, COSMETIC ACCOUNT COORDINATOR-DIRECTOR OF RESIDENCE LIFE [address] [place] [address] Social History Tobacco Use Types Packs/Day Years [...] on file documented as of this encounter Miscellaneous Notes * Telephone Encounter - Argenis Brooks - 10/21/2024 10:09 AM EDT Pt states she went to fruit picker machine [facility], but her out of pocket cost was going to be over $100. Pt is wondering if there is a different [facility] RX that can be sent. Pt states she is not against doing Depo again if there isn't a different RX. Please advise. Thank you documented in this encounter Plan of Treatment Not on file documented as of this encounter Visit Diagnoses Not on filedocumented in this encounter Additional Health Concerns Assessment Noted Time PHQ-9 Depression Total Score: 1 10/18/19 25 11:52 AM EDT A Body Mass Index follow-up plan has been documented for the patient 10/17/2024 12:10 PM EDT documented as of this encounter Care Teams [employer] Relationship Specialty Start Date End Date No Pcp, No Pcp [place] [address] PCP - General Family Medicine 10/07/16 documented as of this encounter
--- OUTSIDE RECORDS SUMMARY | 2024-10-21 10:41 | XMS_ITS | Clinical Summary ---
Author Organization [employer] [facility] Address [facility]-[id number] [address] [place] [address] Care Team Providers Care Manual Lathe Machinist Name Role Phone No Pcp, No Pcp Primary Care Provider Unavailabl e Allergies No known active allergies Medications drospirenone, contraceptive, 4 mg (28) tabletIndications :Encounter for initial prescription of contraceptive pills Take 4 mg by mouth in the morning. 84 tablet 3 10/18/19 25 Active medroxyPROGESTERo ne (DEPO-PROVERA) 150 mg/mL injection Inject 150 mg into the appropriate muscle every 3 (three) months. 025 Discontin ued(Thera py completed ) sulfamethoxazole- trimethoprim (BACTRIM DS) 800-160 mg per tablet Take 1 tablet by mouth 2 (two) times a day. 025 Discontin ued(Thera py completed ) Active Problems Problem Noted Date Diagnosed Date Smoker 10/17/2024 Overweight (BMI 25.0-29.9) 10/17/2024 Degeneration, intervertebral disc, lumbar 2022 Bilateral carpal tunnel syndrome 10/19/2022 Acquired hallux valgus 10/19/2022 Bunion of left foot 10/19/2022 Contracture of left Achilles tendon 10/19/2022 Contracture, right ankle 10/19/2022 Onychomycosis due to dermatophyte 10/19/2022 Encounters Date Type Department Care Team Description 10/21/2024 Telephone [facility] [address] [place] [address] Frances Bee, BENZENE WORKER-BEET FLUMER 10/18/2024 Results Follow-Up [facility] [address] [place] [address] Sharee Copeland, RN POCT , urine, Thin Prep Pap Test 10/18/2024 Orders Only [facility] [place] [address] [place] [address] Sharee Copeland RN Pap smear, as part of routine gynecological examination (Primary Dx) 10/17/2024 11:00 AM EDT Office Visit [facility] [place] [address] [place] [address] Frances Bee, BENZENE WORKER-BEET FLUMER Well woman exam with routine gynecological exam (Primary Dx); Encounter for screening mammogram for malignant neoplasm of breast; Encounter for initial prescription of contraceptive pills; Menorrhagia with regular cycle; Standardized adult depression screening tool completed; Screening for cervical cancer; Pap smear, as part of routine gynecological examination 10/17/2024 Travel from Last 3 Months Family History Medical History Relation Name Comments No Known Problems Father Cancer Mother Lung cancer Mother Relation Name Status Comments Father Alive Mother Social History Tobacco Use Types Packs/Day Years [...] Pressure 102/68 10/17/2024 11:03 AM EDT Pulse 76 03/20/2017 10:33 AM EST Temperature 36.7 C (98.1 F) 03/20/2017 10:33 AM EST Respiratory Rate 16 03/20/2017 10:33 AM EST Oxygen Saturation 98% 03/20/2017 10:33 AM EST Inhaled Oxygen Concentration - - Weight 81.8 kg (180 lb 6.4 oz) 10/17/2024 11:03 AM EDT Height 166.4 cm (5' 5.5 ) 10/17/2024 11:03 AM ED T Body Mass Index 29.56 10/17/2024 11:03 AM EDT Plan of Treatment Health Maintenance Due Date Last Done Comments Tobacco Counseling 1985 DTaP,Tdap and Td Vaccines (1 - Tdap) 2004 Influenza Vaccine 12/02/2024 Adult BMI Follow Up Plan 10/17/2025 10/17/2024 Adult BMI Screening 10/17/2025 10/17/2024 Depression Screening 10/17/2025 10/17/2024 Tobacco Screening 10/17/2025 10/17/2024 Pap Smear 10/18/2027 10/17/2024 Medical Devices Not on file Procedures Procedure Name Priority Date/Time Associated Diagnosis Comments THIN PREP PAP TEST Routine 10/17/2024 12 :25 PM EDT Pap smear, as part of routine gynecological examination PM AMB POCT , URINE (NUCG) Routine 10/17/2024 11:27 AM EDT Encounter for initial prescription of contraceptive pills from Last 3 Months Results * Thin Prep Pap Test (10/17/2024 12:25 PM EDT) Case Report Gynecologic Cytology Report Case: [id number] Authorizing Provider: ALEXANDRIA Schwarz Collected: 10/17/2024 1225 Ordering Location: [facility] Received: 10/17/2024 1226 Obstetrics/Gy necology First Screen: SHARLA Parker(ASCP) Specimen: Thin Prep Pap, Cervix/Endocer vix 1:16 PM EDT [facility] Specimen Adequacy Satisfactory for evaluation, endocervical/t ransformation zone component present 1:16 PM EDT [facility] Interpretation NEGATIVE FOR INTRAEPITHELIA L LESION OR MALIGNANCY NEGATIVE FOR INTRAEPITHELIA L LESION OR MALIGNANCY, UNSATISFACTORY , EPITHELIAL CELL ABNORMALITY, GLANDULAR EPITHELIAL CELL ABNORMALITY. , SQUAMOUS EPITHELIAL CELL ABNORMALITY, NO DIAGNOSIS RENDERED. 5 1:16 PM EDT [facility] at 1316 EDT Additional Information The Pap test is a screening test with an inherent, but low, probability of error. The Pap test is primarily effective for the diagnosis and prevention of squamous cell carcinoma. Regular screening is critical for prevention. ThinPrep liquid-based slides, which meet the Program Advisor criteria for automated screening, have been screened by the [employer] Imaging System (as of 12/18/06) along with an additional manual rescreening by a cytotechnologi st and, if indicated, by a pathologist. 5 1:16 PM EDT [facility] Clinical Information LAST PAP 10 YEARS AGO 1:16 PM EDT [facility] Embedded Images 1:16 PM EDT [facility] Thin Prep (Cervix/Endocerv ix) 10/17/2024 12:25 PM EDT 10/17/2024 12:26 PM EDT Frances Bee BENZENE WORKER-BEET FLUMER PATHOLOGY/CYTOLOGY ORDER DELISA Final Result [facility] [address] [place] [address], [place] [phone] * POCT , urine (10/17/2024 11:27 AM EDT) External Poct Urine Negative MANUALLY TRANSCRIBED RESULTS Urine 10/17/2024 11:2 7 AM EDT Frances Bee BENZENE WORKER-BEET FLUMER POINT OF CARE TEST ORDER DELISA Final Result MANUALLY TRANSCRIBED RESULTS from Last 3 Months Insurance [facility] [id number] [id number] [id number] Care Teams Manual Lathe Machinist Relationship Specialty Start Date End Date No Pcp, [place] [address] PCP - General Family Medicine 10/07/16
--- OUTSIDE RECORDS SUMMARY | 2024-10-21 10:41 | XMS_ITS | Patient Health Record ---
Author Organization [facility] es Address [address] [place] [address] Care Team Providers Care Mill Feeder Name Role Phone Eduin Conti Primary Care Provider [phone] Allergies No Known Allergies Reason For Referral [...] 08/19/2024 Encounters Encounter Location Date Provider Diagnosis [facility] [address] [place] [address] 09/02/2024 Eduin Conti [facility] [address] [place] [address] 10/15/2024 Eduin Conti Encounter for screening mammogram for malignant neoplasm of breast Z12.31 [facility] [address] [place] [address] 08/19/2024 Eduin Conti Encounter to establish care Z76.89 ; Diabetes mellitus screening Z13.1 and Oral thrush B37.0 Assessments Encounter Date Diagnosis (ICD Code) Assessment Notes Treatment Notes Treatment Clinical Notes Section Notes 08/19/2024 Diabetes mellitus screening (ICD-10 - Z13.1) 08/19/2024 Encounter to establish care (ICD-10 - Z76.89) 10/15/2024 Encounter for screening mammogram for malignant neoplasm of breast (ICD-10 - Z12.31) 08/19/2024 Oral thrush (ICD-10 - B37.0) 08/19/2024 [...] 08/19/2024 Complete Blood Count Auto Diff 5 MM screening mammo BI w/CAD 10/15/2024 Insurance Providers Payer Name Payer Address Payer Phone Subscriber Number Group Number Insured Name Patient Relationship to Insured Coverage Start Date Coverage End Date [employer]THE[employer] Primary [address] [place] [address] [id number] RIKY ARREAGA Self - patient is the insured 4 Medical (General) History Surgical History Surgery Date(Month/Year) carpal tunnel release- right
[2024-10-21 10:49] LABS: Hematocrit 39.7 % (36.0-48.0); Hemoglobin 13.4 g/dL (12.0-16.0); Immature Granulocytes Abs Auto 0.02 10^3/uL (0.00-0.03); Immature Granulocytes Pct Auto 0.2 % (0.0-0.5); Lymphocytes Absolute Auto 1.9 10^3/uL (1.2-3.8); Mean Corpuscular HGB Conc 33.8 g/dL (29.9-35.2); Mean Corpuscular Hemoglobin 29.2 pg (26.7-34.0); Mean Corpuscular Volume 86.5 fL (81.0-99.0); Platelet Count 194 10^3/uL (150-450); Red Blood Count 4.59 10^6/uL (4.20-5.40); White Blood Count 8.1 10^3/uL (4.0-11.0)
--- OUTSIDE RECORDS SUMMARY | 2024-10-21 10:58 | XMS_ITS | CCD ---
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 Maker Name Role Phone JASEN FRASER Attending Unavailable JASEN FRASER Consulting Unavailable DR JANETH HERNÁNDEZ Primary Care Unavailable JASEN FRASER Admitting Unavailable EDGAR, DR FOWLER Attending Unavailable EDGAR, DR FOWLER Consulting Unavailable EDGAR, DR FOWLER Primary Care Unavailable DR JANETH HERNÁNDEZ Admitting Unavailable DR KIRA MORENO Consulting Unavailable No Pcp, No Pcp Primary Care Provider UnavailFRANCES Wilhelm Attending Unavailable NO PCP, NO PCP Primary Care Unavailable Medications Current Medications Medication Drug Class(es) Dates Sig (Normalized) Sig (Original) drospirenone, contraceptive, 4 mg (28) tablet (2 sources) Start: 10-17-2024 take 1 tablet by mouth in the morning drospirenone, contraceptive, 4 mg (28) tablet Indications: Encounter for initial prescription of contraceptive pills Take 4 mg by mouth in the morning. 84 tablet 3 10/17/2024 Active Completed/Discontinued Medications Medication Drug Class(es) Dates Sig (Normalized) Sig (Original) 1 ml medroxyPROGESTERone acetate 150 mg/ml injection (1 source) Progestin End: 10-18-19 25 medroxyPROGESTERone (DEPO-PROVERA) 150 mg/mL injection Inject 150 mg into the appropriate muscle every 3 (three) months. 10/17/2024 Discontinued (Therapy completed) sulfamethoxazole 800 mg / trimethoprim 160 mg oral tablet (1 source) Dihydrofolate Reductase Inhibitor Antibacterial, Sulfonamide Antimicrobial End: 10-18-19 25 take 1 tablet by mouth twice daily sulfamethoxazole-trime thoprim (BACTRIM DS) 800-160 mg per tablet Take 1 tablet by mouth 2 (two) times a day. 10/17/2024 Discontinued (Therapy completed) Problems Active Problems Problem Classification Problem Date Documented Date Episodic/Chronic Acquired foot deformities (2 sources) Acquired hallux valgus; Translations: [Hallux valgus (acquired), unspecified foot] Onset: 10-19-2022 10-17-2024 Chronic Contraceptive and procreative management (2 sources) Patient encounter status; Translations: [Encounter for initial prescription of contraceptive pills] Onset: 10-17-2024 10-17-2024 Episodic Menstrual disorders (2 sources) Menorrhagia; Translations: [Excessive and frequent menstruation with regular cycle] Onset: 10-17-2024 10-17-2024 Chronic Other acquired deformities (2 sources) Contracture of joint of right ankle; Translations: [Contracture, right ankle] Onset: 10-19-2022 10-17-2024 Chronic Other connective tissue disease (1 source) Neuralgia and neuritis, unspecified; Translations: [NEURALGIA AND NEURITIS UNSPECIFIED] Onset: 04-14-2021 Episodic Other nervous system disorders (2 sources) Bilateral carpal tunnel syndrome; Translations: [Carpal tunnel syndrome, bilateral upper limbs] Onset: 10-19-2022 10-17-2024 Chronic Other nutritional; endocrine; and metabolic disorders (2 sources) Body mass index 25-29 - overweight; Translations: [Overweight] Onset: 10-17-2024 10-17-2024 Episodic Other screening for suspected conditions (not mental disorders or infectious disease) (5 sources) Encounter for screening for uncertain dates; Translations: [Patient encounter status] Onset: 08-04-2020 10-17-2024 Episodic Screening and history of mental health and substance abuse codes (2 sources) Standardized adult depression screening tool completed ; Translations: [Encounter for screening for depression] Onset: 10-17-2024 10-17-2024 Episodic Spondylosis; intervertebral disc disorders; other back problems (2 sources) Degeneration of lumbar intervertebral disc; Translations: [Degeneration, intervertebral disc, lumbar] Onset: 10-19-2022 10-17-2024 Chronic Substance-related disorders (2 sources) Smoker; Translations: [Nicotine dependence, unspecified, uncomplicated] Onset: 10-17-2024 10-17-2024 Chronic Unclassified (3 sources) LOW BACK PAIN, UNSPECIFIED; Translations: [LOW BACK PAIN, UNSPECIFIED] Onset: 04-14-2021 Past or Other Problems Problem Classification Problem Date Documented Date Episodic/Chronic Acquired foot deformities (2 sources) Bunion; Translations: [Bunion of left foot] Onset: 10-19-2022 10-17-2024 Episodic Mood disorders (2 sources) Mood disorders Onset: 10-17-2024 10-17-2024 Mycoses (2 sources) Onychomycosis due to dermatophyte ; Translations: [Tinea unguium] Onset: 10-19-2022 10-17-2024 Episodic Other complications of (4 sources) Other specified related conditions, first trimester; Translations: [OTH SPEC PREG RELATED COND 1ST TRI] Onset: 07-28-2020 Episodic Other connective tissue disease (2 sources) Contracture of left Achilles tendon; Translations: [Short Achilles tendon (acquired), left ankle] Onset: 10-19-2022 10-17-2024 Episodic Unclassified (1 source) LOW BACK PAIN, UNSPECIFIED; Translations: [LOW BACK PAIN, UNSPECIFIED] Onset: 04-07-2021 Unclassified (2 sources) Onset: 10-17-2024 10-17-2024 Results Test Name Value Interpretation Reference Range Facil ity POCT , urineon 10-01 Beta HCG ( test) Ql (U) Negative [facility] Interpretation and review of laboratory results Normal [facility] XR CSPINE OBL FLEX_EXTon XR CSPINE OBL FLEX_EXT EXAMINATION: XR CSPINE OBL FLEX_EXT HISTORY: Neuralgia COMPARISON: No relevant comparison available. FINDINGS: BONES: Straightening of the normal lordotic curvature involving the upper cervical spine; positioning versus muscle spasm. No fracture, spondylolisthesis, or bone lesion. Mild degenerative facet arthropathy at C5-6, C6-7. DISC SPACES: Normal. No significant disc height narrowing, subluxation, or endplate abnormality. PARASPINOUS: Negative. No paraspinous abnormality is seen. OTHER: Negative. IMPRESSION: 1. No acute or suspicious findings. 2. Minimal degenerative facet arthropathy of the lower cervical spine. Electronically authenticated by: KIRA MORENO Date: 2021-04-07 13:56 Normal [facility] XR LSPINE 2_3 VIEWSon 2021 XR LSPINE 2_3 VIEWS EXAMINATION: XR LSPINE 2_3 VIEWS HISTORY: Low back pain COMPARISON: XR lumbar spine 01/07/2010 FINDINGS: BONES: No significant spondylosis, scoliosis, fracture, or visible bony lesion. DISC SPACES: Moderate narrowing L5-S1. PARASPINOUS: Negative. No paraspinous abnormality is seen. OTHER: Negative. IMPRESSION: 1. L5-S1 mild-moderate degenerative disc disease; slightly progressed. Electronically authenticated by: KIRA DOMINGODONNA Date: 2021-04-07 13:58 Normal [facility] Panel[facility] 060 Calcium [Mass/Vol] 8.9 mg/dL Normal 8.2-10.2 [facility] Comment on above: Performed By: #### C ALONDRA ADHIKARI, PP #### [facility] [address] Chloride [Moles/Vol] 102 mmol/L Normal 95-114 [facility] Comment on above: Performed By: #### C ALONDRA ADHIKARI, PP #### [facility] [address] CO2 [Moles/Vol] 23.3 mmol/L Normal 22.0-30.0 [facility] Comment on above: Performed By: #### C ALONDRA ADHIKARI, PP #### [address] Creatinine [Mass/Vol] 0.73 mg/dL Normal 0.44-1.03 [facility] Comment on above: Performed By: #### C ZEYNEP BMP, PP #### [facility] [address] [place] [address] [place] Creatinine Clr Calc Pharmacy 107.37 Normal [facility] Comment on above: Result Comment: PERF ORMED BY: [place] [address] PATHOLOGIST INTEGRATION SPECIALIST SOURAV TOBIAS M.D. Performed By: #### C ZEYNEP BMP, PP #### [address] Estimated GFR ( Winnie > 60 Normal [facility] Comment on above: Result Comment: GFR estimated reference range: According to KDOQI guidelines, <60 ml/min/1.73m2 is sufficient to diagnose a patient with chronic kidney disease. Performed By: #### C ALONDRA ADHIKARI, PP #### [address] Estimated GFR (Non- Am > 60 Normal [facility] Comment on above: Performed By: #### C ALONDRA ADHIKARI, PP #### [address] Glucose [Mass/Vol] 98 mg/dL Normal 70-100 [facility] Comment on above: Result Comment: [facility] Glucose Reference Range is dependent on time and content of last meal. Glucose of more than 200 mg/dL in a nonstressed, ambulatory subject supports the diagnosis of Diabetes Mellitus. ADA recommended reference range Performed By: #### C ALONDRA ADHIKARI, PP #### [address] Potassium [Moles/Vol] 3.4 mmol/L Low 3.5-5.1 [facility] Comment on above: Performed By: #### C ALONDRA ADHIKARI, PP #### [address] Sodium [Moles/Vol] 136 mmol/L Normal 136-146 [facility] Comment on above: Performed By: #### C ALONDRA ADHIKARI, PP #### [address] Urea nitrogen [Mass/Vol] 6 mg/dL Low 9-23 [facility] Comment on above: Performed By: #### C ALONDRA ADHIKARI, PP #### [address] COVID-19 Antigenon 1 COVID-19 Antigen Healthcare Worker?: N Danelle Reference Danelle Reference Negative SARS-CoV+SARS-CoV-2 (COVID-19) Ag [Presence] in Respiratory specimen by Rapid immunoassay Negative for SARS Antigen by ANU COVID19 Blank Space Danelle Disclaimer Negative results, from patients with symptom Danelle Disclaimer onset beyond five days, should be treated as Danelle Disclaimer presumptive and confirmation with a molecular Danelle Disclaimer assay, if necessary, for patient management, Danelle Disclaimer may be performed. Negative results do not rule Danelle Disclaimer out COVID-19 and should not be used as the sole Danelle Disclaimer basis for treatment or patient management Danelle Disclaimer decisions, including infection control decisions. Danelle Disclaimer Negative results should be considered in the Danelle Disclaimer context of a patient's recent exposures, history Danelle Disclaimer and the presence of clinical signs and symptoms Danelle Disclaimer consistent with COVID-19. COVID19 Blank Space Danelle Disclaimer The Danelle SARS Antigen ANU does not differentiate Danelle Disclaimer between SARS-CoV and SARS-CoV-2. COVID19 Blank Space Danelle Disclaimer This test was developed and its performance Danelle Disclaimer characteristic determined by [employer] and Danelle Disclaimer validated at [facility]. This Danelle Disclaimer test has not been FDA cleared or approved. This Danelle Disclaimer test has been authorized by FDA under an Emergency Use Danelle Disclaimer Authorization (EUA). This test has been validated Danelle Disclaimer in accordance with the FDA's Guidance Document (Policy Danelle Disclaimer for Diagnostics Testing in Laboratories Certified to Danelle Disclaimer Perform High Complexity Testing under CLIA prior to Danelle Disclaimer Emergency Use Authorization for Coronavirus Danelle Disclaimer iseas during the Public Health Emergency) Danelle Disclaimer issued on July 04, 2019. This test is only authorized Danelle Disclaimer for the duration of time the declaration that Danelle Disclaimer circumstances exist justifying the authorization of Danelle Disclaimer the emergency use of in vitro diagnostic tests for Danelle Disclaimer detection of SARS-CoV-2 virus and/or diagnosis of Danelle Disclaimer COVID-19 infection under section 564(b)(1) of the Danelle Disclaimer Act, 21 U.S.C. 360bbb-3(b)(1), unless the Danelle Disclaimer authorization is terminated or revoked sooner. PERFORMED BY: [place] [id number] PATHOLOGIST INTEGRATION SPECIALIST SOURAV TOBIAS M.D. Normal [facility] Comment on above: Performed By: #### C OVID 19 [facility] [place], COVID-19 DANELLE #### [address] COVID-19 [facility] 09-05-2020 SARS-CoV-2 (COVID-19) RNA SHRAVAN+probe Ql (Unsp spec) Negative Normal Negative [facility] Comment on above: Order Comment: Healt hcare Worker?: N Result Comment: Testing for SARS-CoV-2 by RT-PCR This test was developed and its performance characteristics determined by [employer] and validated at the [facility]. This test has not been FDA cleared or approved. This test has been authorized by FDA under an Emergency Use Authorization (EUA). This test has been validated in accordance with the FDA's Guidance Document (Policy for Diagnostics Testing in Laboratories Certified to Perform High Complexity Testing under CLIA prior to Emergency Use Authorization for Coronavirus Disease-2019 during the Public Health Emergency) issued on July 04, 2019. This test is only authorized for the duration of time the declaration that circumstances exist justifying the authorization of the emergency use of in vitro diagnostic tests for detection of SARS-CoV-2 virus and/or diagnosis of COVID-19 infection under section 564(b)(1) of the Act, 21 U.S.C. 360bbb-3(b)(1), unless the authorization is terminated or revoked sooner. PERFORMED BY: [address] [place] [address] PATHOLOGIST INTEGRATION SPECIALIST SOURAV TOBIAS M.D. Performed By: #### C OVID 19 [facility], [place], COVID-19 DANELLE #### [address] Coagulation Profileon 2020 aPTT Coag (Bld) [Time] 41.8 s High 25.1-36.5 [facility] Comment on above: Result Comment: PERF ORMED BY: [place] [address] PATHOLOGIST INTEGRATION SPECIALIST SOURAV TOBIAS M.D. Performed By: #### C ALONDRA ADHIKARI, PP #### [address] INR Coag (PPP) [Relative time] 1.1 {INR} Normal [facility] Comment on above: Result Comment: INR Therapeutic Range A) Pre- and Peroperative OAT started two weeks before surgery. NOT HIP SURGERY: 1.5 - 2.5 HIP SURGERY: 2 - 3 B) Primary and secondary prevention of venous THROMBOSIS: 2 - 3 C) Active venous thrombosis, pulmonary embolism and prevention of recurrent venous thrombosis: 2 - 3 D) Prevention of arterial thromboembolism including patients with mechanical heart valves: 3 - 4.5 Performed By: #### C ALONDRA ADHIKARI, PP #### [address] PT Coag (PPP) [Time] 11.8 s Normal 9.0-12.9 [facility] Comment on above: Performed By: #### C ALONDRA ADHIKARI, PP #### [address] Complete Blood Count Auto Di ffon 09-05-2020 Basophils (Bld) [#/Vol] 0.1 10*3/uL Normal 0.0-0.2 [facility] Comment on above: Result Comment: PERF ORMED BY: [place] [address] PATHOLOGIST INTEGRATION SPECIALIST SOURAV TOBIAS M.D. Performed By: #### C BC, BMP, PP #### [facility] [address] [place] [address] [place] Basophils/100 WBC (Bld) 0.7 % Normal . [facility] Comment on above: Performed By: #### C ZEYNEP BMP, PP #### [facility] [address] [place] [address] [place] Eosinophils (Bld) [#/Vol] 0.4 10*3/uL Normal 0.0-0.45 [facility] Comment on above: Performed By: #### C ZEYNEP BMP, PP #### [facility] [address] [place] [address] [place] Eosinophils/100 WBC (Bld) 4.7 % Normal . [facility] Comment on above: Performed By: #### C ZEYNEP BMP, PP #### [facility] [address] Erythrocyte distribution width (RBC) [Ratio] 12.6 % Normal 11.9-15.3 [facility] Comment on above: Performed By: #### C ZEYNEP BMP, PP #### [facility] [address] [place] [address] [place] Hematocrit (Bld) [Volume fraction] 37.2 % Normal 34.0-46.4 [facility] Comment on above: Performed By: #### C ZEYNEP BMP, PP #### [facility] [address] [place] [address] [place] Hemoglobin (Bld) [Mass/Vol] 13.0 g/dL Normal 11.8-15.4 [facility] Comment on above: Performed By: #### C ZEYNEP BMP, PP #### [facility] [address] [place] [address] [place] Lymphocytes (Bld) [#/Vol] 2.5 10*3/uL Normal 1.00-4.8 [facility] Comment on above: Performed By: #### C ZEYNEP BMP, PP #### [facility] [address] [place] [id number] [place] Lymphocytes/100 WBC (Bld) 32.3 % Normal . [facility] Comment on above: Performed By: #### C BC BMP, PP #### [facility] [address] MCH (RBC) [Entitic mass] 29.7 pg Normal 24.7-34.3 [facility] Comment on above: Performed By: #### C BC, BMP, PP #### [facility] [address] MCV (RBC) [Entitic vol] 85.1 fL Normal 80-100 [facility] Comment on above: Performed By: #### C BC, BMP, PP #### [facility] [address] Mean Corpuscular HGB Conc 34.9 g/dL Normal 32.0-35.0 [facility] Comment on above: Performed By: #### C BC BMP, PP #### [address] Monocytes (Bld) [#/Vol] 0.6 10*3/uL Normal 0.0-0.8 [facility] Comment on above: Performed By: #### C ZEYNEP BMP, PP #### [address] Monocytes/100 WBC (Bld) 8.3 % Normal . [facility] Comment on above: Performed By: #### C ZEYNEP BMP, PP #### [facility] [address] Neutrophils (Bld) [#/Vol] 4.2 10*3/uL Normal 1.8-7.7 [facility] Comment on above: Performed By: #### C BC, BMP, PP #### [address] Neutrophils/100 WBC (Bld) 54.0 % Normal . [facility] Comment on above: Performed By: #### C BC, BMP, PP #### [address] Nucleated RBC/100 WBC (Bld) [Ratio] 0.4 % Normal 0-0.5 [facility] Comment on above: Performed By: #### C BC, BMP, PP #### [facility] [address] Platelet mean volume (Bld) [Entitic vol] 9.0 fL Normal 6.3-10.7 [facility] Comment on above: Performed By: #### C BC, BMP, PP #### [facility] [address] Platelets (Bld) [#/Vol] 195 10*3/uL Normal 150-450 [facility] Comment on above: Performed By: #### C BC, BMP, PP #### [address] RBC (Bld) [#/Vol] 4.38 10*6/uL Normal 3.60-5.00 [facility] Comment on above: Performed By: #### C BC, BMP, PP #### [address] WBC (Bld) [#/Vol] 7.8 10*3/uL Normal 4.5-11.0 [facility] Comment on above: Performed By: #### C BC, BMP, PP #### [address] Dipstick and Microscopicon 0 09-05-2020 Appearance (U) Clear Normal Clear [facility] Comment on above: Order Comment: Name Collection Type:: Clean-Voided Midstream Performed By: #### U HCG, ADDONUAPLUS #### [place] [address] [place] Bacteria,Urine None Seen Normal None Seen [facility] Comment on above: Order Comment: Name Collection Type:: Clean-Voided Midstream Performed By: #### U HCG, ADDONUAPLUS #### [address] Bilirubin,Urine Negative Normal Negative [facility] Comment on above: Order Comment: Name Collection Type:: Clean-Voided Midstream Performed By: #### U HCG, ADDONUAPLUS #### [facility] [address] [place] [address] [place] Color (U) Yellow Normal Yellow [facility] Comment on above: Order Comment: Name Collection Type:: Clean-Voided Midstream Performed By: #### U HCG, ADDONUAPLUS #### [facility] [address] Glucose Ql (U) Normal Normal Normal [facility] Comment on above: Order Comment: Name Collection Type:: Clean-Voided Midstream Performed By: #### U HCG, ADDONUAPLUS #### [facility] [address] [place] [address] [place] Hyaline Casts,Urine 0-8 Normal 0-8 [facility] Comment on above: Order Comment: Name Collection Type:: Clean-Voided Midstream Performed By: #### U HCG, ADDONUAPLUS #### [facility] [address] [place] [address] Ketones Ql (U) Negative Normal Negative [facility] Comment on above: Order Comment: Name Collection Type:: Clean-Voided Midstream Performed By: #### U HCG, ADDONUAPLUS #### [facility] [address] [place] [address] [place] Leukocyte esterase Test strip Ql (U) Negative Normal Negative [facility] Comment on above: Order Comment: Name Collection Type:: Clean-Voided Midstream Performed By: #### U HCG, ADDONUAPLUS #### [facility] [address] [place] [address] [place] Nitrite,Urine Negative Normal Negative [facility] Comment on above: Order Comment: Name Collection Type:: Clean-Voided Midstream Performed By: #### U HCG, ADDONUAPLUS #### [facility] [address] [place] [address] [place] Occult Blood,Urine 3+ High Negative [facility] Comment on above: Order Comment: Name Collection Type:: Clean-Voided Midstream Performed By: #### U HCG, ADDONUAPLUS #### [facility] [address] [place] [address] [place] pH (U) [pH] Normal 5.0-9.0 [facility] Comment on above: Order Comment: Name Collection Type:: Clean-Voided Midstream Performed By: #### U HCG, ADDONUAPLUS #### [facility] [address] [place] [address] Protein,Urine Negative Normal Negative [facility] Comment on above: Order Comment: Name Collection Type:: Clean-Voided Midstream Performed By: #### U HCG, ADDONUAPLUS #### [facility] [address] [place] [address] RBC LM.HPF (Urine sed) [#/Area] 0 /[HPF] Normal 0-4 [facility] Comment on above: Order Comment: Name Collection Type:: Clean-Voided Midstream Performed By: #### U HCG, ADDONUAPLUS #### [facility] [address] [place] [address] Renal Epithelial Cells,Urine 0-1 Normal 0-1 [facility] Comment on above: Order Comment: Name Collection Type:: Clean-Voided Midstream Performed By: #### U HCG, ADDONUAPLUS #### [facility] [address] [place] [address] Specificy [place],Urine 1.008 Normal 1.001-1.030 [facility] Comment on above: Order Comment: Name Collection Type:: Clean-Voided Midstream Performed By: #### U HCG, ADDONUAPLUS #### [facility] [address] [place] [address] Squamous Epithelial Cell,Urine 1-2 Normal 0-2 [facility] Comment on above: Order Comment: Name Collection Type:: Clean-Voided Midstream Performed By: #### U HCG, ADDONUAPLUS #### [facility] [address] [place] [address] Urobilinogen,Urine Normal Normal Normal [facility] Comment on above: Order Comment: Name Collection Type:: Clean-Voided Midstream Performed By: #### U HCG, ADDONUAPLUS #### [facility] [address] [place] [address] WBC LM.HPF (Urine sed) [#/Area] 0 /[HPF] Normal 0-4 [facility] Comment on above: Order Comment: Name Collection Type:: Clean-Voided Midstream Performed By: #### U HCG, ADDANGELINAUAPLUS #### [address] ECG 12 lead ECGon 09-05-2020 ECG [address] [facility] Main [place] [address] [place] [address] Electrocardiograph Report Signed Patient: Francheska Diego MR#: [id number] : 1985 Acct:[id number] Age/Sex: 35 / F ADM Date: 09/05/20 Loc: ER Room: Type: [facility] ER Attending Dr: Ordering Provider: Gaston Menjivar Jr, MD Date of Service: 09/05/20 ECG/ECG 12 lead ECG: OB/Uterine Contractions Copies to: Test Reason : Blood Pressure : 133/092 mmHG Vent. Rate : 081 BPM Atrial Rate : 081 BPM P-R Int : 150 ms QRS Dur : 102 ms QT Int : 382 ms P-R-T Axes : 065 005 060 degrees QTc Int : 443 ms Normal sinus rhythm Incomplete right bundle branch block Borderline ECG No previous ECGs available Confirmed by IMMANUEL ALLEN DO, FACC ([id number]) on 09/06/2020 11:47:00 AM Referred By: Electronically Signed By:IMMANUEL ALLEN DO, FACC Transcribed By: MUS Dictated By: Immanuel Allen DO 09/05/20 0320 Signed By: 09/06/20 1147 Normal [facility] HCG,Quantitativeon 1 HCG,Quantitative 14.26 m[iU]/mL Normal [facility] Comment on above: Result Comment: Appr oximate Approximate hCG Gestational Age Range (mIU/ml) (weeks) 0.2-1 5-50 1-2 50-500 2-3 100-5,000 3-4 500-10,000 4-5 1,000-50,000 5-6 10,000-100,000 6-8 15,000-200,000 8-12 10,000-100,000 PERFORMED BY: [place] [address] PATHOLOGIST INTEGRATION SPECIALIST SOURAV TOBIAS M.D. Performed By: #### H CGQNT #### [place] [id number] [place] HCG,Urineon 09-05-2020 Beta HCG ( test) Ql (U) Negative Normal [facility] [facility] Comment on above: Order Comment: Name Collection Type:: Clean-Voided Midstream Result Comment: PERF ORMED BY: [place] [address] PATHOLOGIST INTEGRATION SPECIALIST SOURAV TOBIAS M.D. Performed By: #### U HCG, ADDONUAPLUS #### [address] Danelle Ag Negativeon 09-06-19 Danelle Ag Negative Negative Normal Negative [facility] Comment on above: Result Comment: This is a duplicate Danelle SARS Antigen (ANU) result to be used for statistical tracking purpose only. PERFORMED BY: [place] [address] PATHOLOGIST INTEGRATION SPECIALIST SOURAV TOBIAS M.D. Performed By: #### C OVID 19 [facility], [facility], COVID-19 DANELLE #### [address] Type and Screenon 09-05-2020 ABO and Rh group Nom (Bld) Blood group O Rh(D) positive Normal [facility] Comment on above: Result Comment: PERF ORMED BY: [place] [phone] PATHOLOGIST INTEGRATION SPECIALIST SOURAV TOBIAS M.D. US transvaginalon 09-05-[address] [facility] Main [place] [address] [place], [place] [id number] Ultrasound Report Signed Patient: Francheska Diego MR#: [id number] : 1985 Acct:[id number] Age/Sex: 35 / F ADM Date: 09/05/20 Loc: ER Room: Type: [facility] ER Attending Dr: Ordering Provider: Gaston Menjivar Jr, MD Date of Service: 09/05/20 US/US pelvic complete: heavy bleeding recent elective Ab, r/o retained POC ([id number]) US/US transvaginal: . Copies to: Gaston Menjivar Jr, MD Transvesical and endovaginal pelvic ultrasound 09/05/2020. CLINICAL DATA: Uterine bleeding. Recent elective . TRANSVESICAL FINDINGS: The urinary bladder is moderately distended. The uterus demonstrates heterogeneous echogenicity. There is a left renal cyst. There is also mild left hydronephrosis. ENDOVAGINAL FINDINGS: Duplex endovaginal sonography was performed to better visualize the uterus and adnexal regions. The uterus measures 9.8 x 4.8 x 6.6 cm in longitudinal, AP, and transverse dimensions. The endometrial stripe appears thickened, complex, and hypervascular. This finding is suspicious for retained products of . The right and left ovaries measure 4.2 x 1.8 x 3.3 cm and 3.7 x 2.0 x 2.0 cm, respectively. Color Doppler and spectral waveform analysis reveal bilateral ovarian perfusion. There is free fluid in the pelvis. US/US pelvic complete IMPRESSION: 1. Thickened, complex, and hypervascular endometrial stripe suspicious for retained products of . 2. No visible adnexal abnormality. 3. Free fluid. Impression dictated by: Warren Christianson Jr., M.D.09/05/2020 9:19 AM Dictation Location: [place] [address] Tech: Lulu Willoughby Transcribed By: [facility] 09/05/20918 Dictated By: Warren Christianson Jr, MD 09/05/20909 Signed By: 09/05/20918 [facility] PREG QUANT HCGon 07-28-2020 HCG QUANT 71531 mIU/mL Normal [facility] Comment on above: Result Comment: Veri fied by dilution. Performed By: #### P REGQNT #### [facility] Laboratory [address] [address] John Zamorano HCG RANGE SEE BELOW Normal [facility] Comment on above: Result Comment: 5-50 0-1 WEEK 40-300 1-2 WEEKS 100-1,000 2-3 WEEKS 500-6,000 3-4 WEEKS 5,000-200,000 1-2 MONTHS 10,000-100,000 2-3 MONTHS 3,000-50,000 2ND TRIMESTER 1,000-50,000 3RD TRIMESTER Performed By: #### P REGQNT #### [facility] [address] [address] John Zamorano Vital Signs Date Time Vital Sign Value Performing Clinician Christiano charles 10-17-2024 11:03-0400 Body height 166.4 cm Frances Zuniga GROUND CREW CHIEF-QUALITY CONTROL LAB TECHNICIAN Work Phone: [facility] 10-17-2024 11:03-0400 Body mass index (BMI) [Ratio] 29.56 kg/m2 Frances Zuniga GROUND CREW CHIEF-QUALITY CONTROL LAB TECHNICIAN Work Phone: [facility] 10-17-2024 11:03-0400 Body weight 81.83 kg Frances Zuniga GROUND CREW CHIEF-QUALITY CONTROL LAB TECHNICIAN Work Phone: [facility] 10-17-2024 11:03-0400 Diastolic blood pressure 68 mm[Hg] Frances Silvazer GROUND CREW CHIEF-QUALITY CONTROL LAB TECHNICIAN Work Phone: [facility] 10-17-2024 11:03-0400 Systolic blood pressure 102 mm[Hg] Frances Zuniga GROUND CREW CHIEF-QUALITY CONTROL LAB TECHNICIAN Work Phone: [facility] Encounters Encounter Date Encounter Type Care Provider Facility Start: 10-18-2024 End: 10-18-2024 Encounter for gynecological examination (general) (routine) without abnormal findings Sharee Copeland [facility] Start: 10-18-2024 End: 10-18-2024 Orders Only Sharee Copeland RN [facility] Obstetrics/Gynecology Comment on above: Pap smear, as part o f routine gynecological examination (Primary Dx) Start: 10-17-2024 End: 10-17-2024 Initial preventive medicine new pt age 18-39yrs Frances Zuniga GROUND CREW CHIEF-QUALITY CONTROL LAB TECHNICIAN Work Phone: [facility] Comment on above: Well woman exam with routine gynecological exam (Primary Dx); Encounter for screening mammogram for malignant neoplasm of breast; Encounter for initial prescription of contraceptive pills; Menorrhagia with regular cycle; Standardized adult depression screening tool completed; Screening for cervical cancer; Pap smear, as part of routine gynecological examination Start: 10-17-2024 End: 10-17-2024 Patient encounter procedure Frances Zuniga GROUND CREW CHIEF-QUALITY CONTROL LAB TECHNICIAN Work Phone: [facility] Start: 10-17-2024 End: 10-17-2024 ambulatory FRANCES ZUNIGA [facility] Start: 10-17-2024 End: 10-17-2024 Encounter for gynecological examination (general) (routine) without abnormal findings Frances Wheelerkennle GROUND CREW CHIEF-QUALITY CONTROL LAB TECHNICIAN Work Phone: [facility] Start: 04-07-2021 End: 04-08-[address] JANETH HERNÁNDEZ Facility:[facility]1 Start: 07-28-2020 End: 07-29-2020 ambulatory JASEN FRASER Facility:[facility]1 Procedures Date Procedure Procedure Detail Performing Clinician Start: 10-17-2024 Urine test visual color cmprsn meths Frances Silvale GROUND CREW CHIEF-QUALITY CONTROL LAB TECHNICIAN Work Phone: Start: 10-17-2024 Adult depression scr eening assessment Frances Wheelerisrrael GROUND CREW CHIEF-QUALITY CONTROL LAB TECHNICIAN Work Phone: Start: 10-17-2024 Microscopic observat ion [Identifier] in Cervix by Cyto stain Frances Wheelerisrrael GROUND CREW CHIEF-QUALITY CONTROL LAB TECHNICIAN Work Phone: Start: 09-05-2020 Antibody screen Comment on above: Result Comment: PERF ORMED BY: [facility] [address] [place] [address] PATHOLOGIST INTEGRATION SPECIALIST SOURAV TOBIAS M.D. Plan of Treatment Date Care Activity Detail Author Start: 10-18-2027 Screening for malign ant neoplasm of cervix Pap Smear [facility] Start: 10-17-2025 Adult BMI Follow Up Plan Adult BMI Follow Up Plan [facility] Start: 10-17-2025 Adult BMI Screening Adult BMI Screen ing [facility] Start: 10-17-2025 Depression Screening Depression Scre ening [facility] Start: 10-17-2025 Tobacco Screening Tobacco Screening [facility] Start: 12-02-2024 Influenza vaccination Influenza Vacc ine [facility] Start: 10-17-2024 End: 10-17-2025 US Pelvis transabdominal and transvaginal Ultrasound pelvic with transvaginal Imaging Routine Menorrhagia with regular cycle Expected: 10/17/2024, Expires: 10/17/2025 [facility] Comment on above: Expected: 10/17/2024 , Expires: 10/17/2025 Start: 2006 Screening for malign ant neoplasm of cervix Pap Smear [facility] Start: 2004 DTaP,Tdap and Td Vac cines (1 - Tdap) DTaP,Tdap and Td Vaccines (1 - Tdap) [facility] Start: 1985 Tobacco Counseling Tobacco Counselin g [facility] DBT Breast - bilater al screening Mammography screening bilateral with CAD Imaging Routine Encounter for screening mammogram for malignant neoplasm of breast Ordered: 10/17/2024 [employer] Work Phone: Comment on above: Ordered: 10/17/2024 End: 10-18-2025 High Risk HPV w/Barb High Risk HPV w/Barb Lab Routine Pap smear, as part of routine gynecological examination 1 Occurrences starting 10/18/2024 until 10/18/2025 [employer] Work Phone: Comment on above: 1 Occurrences starti ng 10/18/2024 until 10/18/2025 Thin Prep Pap Test Thin Prep Pap Test Pathology and Cytology Routine Pap smear, as part of routine gynecological examination 10/17/2024 12:25 PM EDT [facility] [employer] Payers Date Payer Category Payer [facility] Managed Care - [place] [address] [id number] 2024 Unknown [id number] 1985 Unknown [id number] 1985 Unknown [id number] 1985 Unknown [id number] 1959 Unknown [id number] Social History Date Type Detail Facility Start: 10-17-2024 [facility] Smokes tobacco daily [facility] History of tobacco use Cigarette Smoker [facility] Start: 10-17-2024 Tobacco use and exposure Smokeless tobacco non-user [facility] Start: 10-17-2024 Alcoholic beverage intake Ex-drinker (finding) [facility] Start: 05-14-2020 End: 10-17-2024 History of Social function [facility] Start: 05-14-2020 End: 10-17-2024 Tobacco use panel [facility] Adolescent depressio n screening assessment 1 [facility] Start: 1985 Sex assigned at Not on file [facility] Start: 11-06-2014 Sex Female (finding) [facility] History of Present illness Narrative 10-18-2024 Sharee Copeland RN - 10/18/2024 1:39 PM EDT Note Date & Type Note Facility 10-18-2024 History of Presen t illness Narrative HPV Order placed. - Sharee Copeland RN 10/18/24 1:47 PM documented in this encounter [facility] History of Present illness Narrative 10-17-2024 Frances Zuniga APRN-NHUNG - 10/17/2024 11:00 AM EDT Note Date & Type Note Facility 10-17-2024 History of Present illness Narrative Annual Well Woman Visit 10/17/2024 Deborah Diego is a pleasant 39 y.o. female new patient who presents for annual obstetrics gyn exam. 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 MEDICAL HX Past Medical [...] kg (180 lb 6.4 oz) BMI 29.56 kg/m Physical Exam Vitals and nursing note reviewed. [...] Follow up in 1 year for annual obstetrics gyn exam. Follow up as needed. Await pap. Discussed ASCCP screening guidelines. Discussed taking a multivitamin. Discussed Calcium and Vitamin D for prevention of osteoporosis. Discussed recommendations for HPV vaccine between 9-45 yo. Can be received at [facility] or the [facility] department. Discussed need for yearly mammogram after 40 yo. Encouraged smoking cessation. Discussed colon cancer screening recommendations to begin at 45 yo, patient to discuss with PCP. All questions answered. MICHAELA Gupta APRN-CNP Lisa M Krotzer, APRN-CNP 10/17/24 1210 documented in this encounter [facility] Evaluation note Note Date & Type Note Facility Evaluation note Diagnosis Well woman exam with routine gynecological [...] of the cervix documented in this encounter [facility] Evaluation note Note Date & Type Note Facility Evaluation note Diagnosis Pap smear, as part of routine gynecological examination- Primary Screening for malignant neoplasm of the cervix documented in this encounter [facility] Instructions Attachments Note Date & Type Note Facility Instructions The following attachments cannot be sent through Care Everywhere.Calcium and vitamin D for bone health (Citizen Of [place])Drospirenone, ADULT (Citizen Of [place])Quitting smoking for adults (Citizen Of [place])documented in this encounter [facility] Instructions Note Date & Type Note Facility Instructions Not on filedocumented in this en counter [facility] Summary Purpose Family History No Family History Records FoundNo Family History Records FoundNo Family History Records Found Advance Directives No Advanced Directives Records FoundNo Advanced Directives Records FoundNo Advanced Directives Records Found Additional Source Comments INFORMATION SOURCE (unrecogn ized section and content) DATE CREATED AUTHOR 04/15/2021 [facility] DATE CREATED AUTHOR AUTHOR'S ORGANIZ ATION 04/22/2021 [facility] DATE CREATED AUTHOR AUTHOR'S OBI ATION 10/21/2024 [facility] Reason for Visit (unrecogniz ed section and content) Reason Comments Gynecologic Exam Care Teams (unrecognized sec tion and content) [employer] Bottom Maker Relationship Specialty Start Date End Date No Pcp, [place] [address] PCP - General Family Medicine 10/07/16 [employer] Bottom Maker Relationship Specialty Start Date End Date No Pcp, [place] [address] PCP - General Family Medicine 10/07/16 FOR RECORDS PERTAINING TO PATIENTS WHO ARE OR HAVE BEEN ENROLLED IN A CHEMICAL DEPENDENCY/SUBSTANCEABUSE PROGRAM, SOME INFORMATION MAY BE OMITTED. This clinical summary was aggregated from multiple sources. Caution should be exercised in using it in the provision of clinical care. This summary normalizes information from multiple sources, and as a consequence, information in this document may materially change the coding, format and clinical context of patient data. In addition, data may be omitted in some cases. CLINICAL DECISIONS SHOULD BE BASED ON THE PRIMARY CLINICAL RECORDS. [facility] [employer] provides no warranty or guarantee of the accuracy or completeness of information in this document.
[2024-10-21 11:31] LABS: Alanine Aminotransferase 12 U/L (14-59); Albumin Globulin Ratio 1.1; Albumin Level 3.8 g/dL (3.4-5.0); Alkaline Phosphatase 57 U/L (46-116); Anion Gap 16.1; Aspartate Amino Transferase 13 U/L (15-37); Blood Urea Nitrogen 10.0 mg/dL (7.0-18.0); Calcium 9.2 mg/dL (8.5-10.1); Carbon Dioxide 24.5 mmol/L (21.0-32.0); Chloride 106 mmol/L (98-107); Cholesterol 157 mg/dL (<=200); Estimated GFR (African America >60 (>=60 mL/min/1.73m^2); Estimated GFR (Non-African Ame >60 (>=60 mL/min/1.73m^2); Globulin 3.6 g/dL; Glucose 82 mg/dL (74-106); HDL Cholesterol 54 mg/dL (40-60); Potassium 4.6 mmol/L (3.5-5.1); Sodium 142 mmol/L (136-145); Total Protein 7.4 g/dL (6.4-8.2); Triglycerides 84 mg/dL (<=150); VLDL CHOLESTEROL 16.8 mg/dL
== END 2024-10-21 10:39 | disposition home or self-care (01) ==
LOC: LAB 10:38
DX: Z12.31 Encounter for screening mammogram for malignant neoplasm of breast (principal); Z80.3 Family history of malignant neoplasm of breast; Z80.1 Family history of malignant neoplasm of trachea, bronchus and lung; Z76.89 Persons encountering health services in other specified circumstances; Z13.1 Encounter for screening for diabetes mellitus; B37.0 Candidal stomatitis
CPT/HCPCS: 36415; 77063; 77067; 80053; 80061; 83036; 85025

== ENCOUNTER 2024-11-25 09:50 | Outpatient (OUT) | payer BC, SELFPAY ==
--- OUTSIDE RECORDS SUMMARY | 2023-03-05 20:00 | XMS_ITS | Continuity of Care Document ---
Author Organization [facility] Address [address] [place] [address] Phone Care Team Providers Care Utility Technician Name Role Phone LamonthilarioYesi Unavailable Unavailable Allergies, [...] - Active Procedures Procedure Date Acute Detox User Support Specialist Acute Detox User Support Specialist Acute Detox User Support Specialist Acute Detox User Support Specialist Acute Detox User Support Specialist Acute Detox User Support Specialist DRUG TEST PRSMV DIR OPT OBS URINE TEST ROUTINE VENIPUNCTURE Acute Detox User Support Specialist Acute Detox User Support Specialist Acute Detox User Support Specialist Acute Detox User Support Specialist DRUG TEST PRSMV DIR OPT OBS Acute Detox User Support Specialist PREV VISIT, EST, AGE 18-39 EST FP [...] Diagnoses Date Provider Providers Copied on Encounter [facility], [address] [place] [address], [id number] , tel: [phone] [facility] Detox No Information Dec-0 4-202 3 Klidas Yesi. [address] [place] [address], [id number] , . tel: [phone] [facility], [address] [place] [address], [id number] , tel: [phone] [facility] Det[facility] No Information Dec-0 3-202 3 Klidas Yesi. [address] [place] [address], [id number] , . tel: [phone] [facility], [address] [place] [address], [id number] , tel: [phone] [facility] No Information Dec-0 2-202 3 Klidas Yesi. [address] [place] [address], [id number] , . tel: [phone] [facility], [address] [place] [address], [id number] , tel: [phone] [facility] No Information Dec-0 1-202 3 Obeydonte Feldman. [address] [place], [address], [place]. tel: [phone] [facility], [address] [place], [place], [id number] , [place] tel: [phone] [facility] No Information 0 3 Neil Key. [address] [place], [place], [id number] , [place]. tel: [phone] [facility], [address] [place], [place], [id number] , [place] tel: [phone] [facility] No Information 3 Neil Key. [address] [place], [place], [id number] , [place]. tel: [phone] [facility], [address] [place], [place], [id number] , [place] tel: [phone] [facility] Opioid dependence with withdrawalEncounter for test, result negative 0 Pavlock DO Max. [address] [place], [place], [id number] , [place]. tel: [phone] [facility], [address] [place], [place], [id number] , [place] tel: [phone] [facility] Opioid dependence with withdrawalEncounter for test, result negative 0 Pavlock DO Max. [address] [place], [place], [id number] , [place]. tel: [phone] [facility], [address] [place], [place], [id number] , [place] tel: [phone] [facility] fentanyl dependence (chief complaint) Opioid dependence with withdrawal 0 Jai Childress. [address] [place], [place], [id number] , [place]. tel: [phone] [facility], [address] [place], [place], [id number] , [place] tel: [phone] [facility] Opioid dependence with withdrawal 0 Pavlock DO Max. [address] [place], [place], [id number] , [place]. tel: [phone] [facility], [address] [place], [place], [id number] , [place] tel: [phone] [facility] Opioid dependence with withdrawal 0 Pavlock DO Max. [address] [place], [place], [id number] , [place]. tel: [phone] [facility], [address] [place], [place], [id number] , [place] tel: [phone] [facility] Opioid dependence with withdrawalEncounter for test, result negative 0 Pavlock DO Max. [address] [place], [place], [id number] , [place]. tel: [phone] [facility], [address] [place], [place], [id number] , [place] tel: [phone] [facility] lab result (chief complaint) No Information 4 [facility] Abigail. [address] [place], [place], [id number] , [place]. tel: [phone] PREV VISIT, [facility], AGE 18-39 [facility], [address] [place], [place], [id number] , [place] tel: [phone] [facility] annual visit (chief complaint) Gynecological ExaminationContact with or exposure to venereal diseases 4 [facility] Abigail. [address] [place], [place], [id number] , [place]. tel: [phone] OFFICE/OUTPA TIENT VISIT, [facility], [address] [place], [place], [id number] , [place] tel: [phone] [facility] No Information 2 Lamp Brenda. [address] [place], [place], [id number] , [place]. tel: [phone] OFFICE/OUTPA TIENT VISIT, [facility], [address] [place], [place], [id number] , [place] tel: [phone] [facility] Routine PN Visit (chief complaint) Supervision of other normal 2 Jesus Gutierrez. [address] [place], [place], [id number] , [place]. tel: [phone] OFFICE/OUTPA TIENT VISIT, [facility], [address] [place], [place], [id number] , [place] tel: [phone] [facility] No Information 2 Jesus Gutierrez. [address] [place] [address], [id number] , [place]. tel: [phone] [facility], [address] [place] [address], [id number] , [place] tel: [phone] [facility] No Information 2 Visci DO Warren. [address] [place], [place], [id number] , [place]. tel: [phone] OFFICE/OUTPA TIENT VISIT, [facility], [address] [place] [address], [id number] , [place] tel: [phone] [facility] No Information 2 Jesus Gutierrez. [address] [place] [address], [id number] , [place]. tel: [phone] [facility], [address] [place] [address], [id number] , [place] tel: [phone] [facility] Screening examination for pulmonary tuberculosis 2 Visci DO Warren. [address] [place] [address], [id number] , [place]. tel: [phone] Family History Family Member Type Diagnosis Age [...] lung Payers Payer name Insurance type Covered libertarian ID Arsenio jackson(s) Flash Funded 09 [id number] Social History Type Description Quantity Date Captured Comments Sex Female Smoking Status No Information Sexual Orientation Straight or heterosexual Gender Identity Female Chief Complaint And Reason For Visit No Information Reason For Referral Reason For Referral No Information Plan Of Treatment Date Type Action Status Goal Tdap. Due on due Goal Influenza vaccine. Due on due Goal ELECTRICAL DESIGN TECHNOLOGIST exam. Due on due Goal RLP. Due on due Goal H&P. Due on due Goal Breast exam. Due on due Goal Depression screening. Due on due Goal Breast exam. Due on due Goal RLP. Due on due Goal ELECTRICAL DESIGN TECHNOLOGIST exam. Due on due Goal Tdap. Due on due Goal Influenza vaccine. Due on due Goal Depression screening. Due on due Goal H&P. Due on due Goal Depression screening. Due on due Goal Influenza vaccine. Due on due Goal Tdap. Due on due Goal ELECTRICAL DESIGN TECHNOLOGIST exam. Due on due Goal RLP. Due on due Goal Breast exam. Due on due Goal H&P. Due on due Goal Breast exam. Due on due Goal Tdap. Due on due Goal Influenza vaccine. Due on due Goal H&P. Due on due Goal Depression screening. Due on due Goal ELECTRICAL DESIGN TECHNOLOGIST exam. Due on due Goal RLP. Due on due Goal Influenza vaccine. Due on due Goal Tdap. Due on due Goal Breast exam. Due on due Goal Depression screening. Due on due Goal ELECTRICAL DESIGN TECHNOLOGIST exam. Due on due Goal H&P. Due on due Goal RLP. Due on due Goal Breast exam. Due on due Goal ELECTRICAL DESIGN TECHNOLOGIST exam. Due on due Goal H&P. Due on due Goal PPD (TST). Due on 2 due Goal Depression screening. Due on due Goal RLP. Due on due Goal Influenza vaccine. Due on due Goal Tdap. Due on due Goal Tobacco cessation counseling [...]
--- OUTSIDE RECORDS SUMMARY | 2024-11-25 09:52 | XMS_ITS | Clinical Summary ---
Author Organization [facility] Address [id number] [address] [place] [address] Care Team Providers Care Flight Deck Officer Name Role Phone No Pcp, No Pcp Primary Care Provider Unavailabl e Allergies No known active allergies Medications norethindrone (MICRONOR) 0.35 mg tabletIndications: Encounter for initial prescription of contraceptive pills Take 1 tablet (0.35 mg total) by mouth in the morning. 28 tablet 11 Active Active Problems Problem Noted Date Diagnosed Date Smoker 10/17/2024 Overweight (BMI 25.0-29.9) 10/17/2024 Degeneration, intervertebral disc, lumbar 2022 Bilateral carpal tunnel syndrome 10/19/2022 Acquired hallux valgus 10/19/2022 Bunion of left foot 10/19/2022 Contracture of left Achilles tendon 10/19/2022 Contracture, right ankle 10/19/2022 Onychomycosis due to dermatophyte 10/19/2022 Encounters Date Type Department Care Team Description 10/21/2024 Orders Only [facility]Gynecolo gy [address] [place] [address] Frances Bee, CAGE LOADER-FILLER MACHINE OPERATOR Encounter for initial prescription of contraceptive pills (Primary Dx) 10/21/2024 Telephone [facility] Obstetrics/Gynecveronica gy [address] [place] [address] Frances Bee, CAGE LOADER-FILLER MACHINE OPERATOR 10/18/2024 Results Follow-Up [facility] Obstetrics/Gynecveronica mullen [address] [place] [address] Sharee Copeland, RN POCT , urine, Thin Prep Pap Test, High Risk HPV w/Barb 10/18/2024 Orders Only [facility] Obstetrics/Gynecolo gy [address] [facility] [place] [address] Sharee Copeland, RN Pap smear, as part of routine gynecological examination (Primary Dx) 10/17/2024 11:00 AM EDT Office Visit [facility]Gynecolo gy [address] [facility] [place] [address] Frances Bee, CAGE LOADER-FILLER MACHINE OPERATOR Well woman exam with routine gynecological exam [...] Tobacco Screening 10/17/2025 10/17/2024 Pap Smear 10/18/2027 10/17/2024, 10/17/2024 Medical Devices Not on file Procedures Procedure Name Priority Date/Time Associated Diagnosis Comments MAMM SCREENING BILATERAL W CAD Routine 10/21/2024 Encounter for screening mammogram for malignant neoplasm of breast THIN PREP PAP TEST Routine 10/17/2024 12 :25 PM EDT Pap smear, as part of routine gynecological examination PM AMB POCT , URINE (NUCG) Routine 10/17/2024 11:27 AM EDT Encounter for initial prescription of contraceptive pills HIGH RISK HPV W/BARB Routine 10/17/2024 4:58 AM EDT Pap smear, as part of routine gynecological examination from Last 3 Months Results * Mammography screening bilateral with CAD (10/21/2024) Anatomical Region Laterality Modality Breast Bilateral Mammography 10/21/2024 us Frances Bee CAGE LOADER-FILLER MACHINE OPERATOR IMG MAMMOGRAPHY ORDERABL ES Final Result * Thin Prep Pap Test (10/17/2024 12:25 PM EDT) Case Report Gynecologic Cytology Report Case: [id number] Authorizing Provider: ALEXANDRIA Schwarz Collected: 10/17/2024 1225 [facility] Received: 10/17/2024 1226 Obstetrics/Gy necology First Screen: SHARLA Parker(ASCP) Specimen: Thin Prep Pap, Cervix/Endocer vix 1:16 PM EDT [facility] Specimen Adequacy Satisfactory for evaluation, endocervical/t ransformation zone component present 1:16 PM EDT [facility] Interpretation NEGATIVE FOR INTRAEPITHELIA L LESION OR MALIGNANCY NEGATIVE FOR INTRAEPITHELIA L LESION OR MALIGNANCY, UNSATISFACTORY , EPITHELIAL CELL ABNORMALITY, GLANDULAR EPITHELIAL CELL ABNORMALITY. , SQUAMOUS EPITHELIAL CELL ABNORMALITY, NO DIAGNOSIS RENDERED. 1:16 PM EDT [facility] at 1316 EDT Additional Information The Pap test is a screening test with an inherent, but low, probability of error. The Pap test is primarily effective for the diagnosis and prevention of squamous cell carcinoma. Regular screening is critical for prevention. ThinPrep liquid-based slides, which meet the Glazier Stained Glass criteria for automated screening, have been screened by the ThinPrep Imaging System (as of 12/18/06) along with an additional manual rescreening by a cytotechnologi st and, if indicated, by a pathologist. 1:16 PM EDT [facility] Clinical Information LAST PAP 10 YEARS AGO 1:16 PM EDT [facility] Embedded Images 1:16 PM EDT [facility] Thin Prep (Cervix/Endocerv ix) 10/17/2024 12:25 PM EDT 10/17/2024 12:26 PM EDT us Frances IBRAHIM PATHOLOGY/CYTOLOGY ORDER DELISA Final Result [facility] [address] [place] [address], [place] [phone] * POCT , urine (10/17/2024 11:27 AM EDT) External Poct Urine Negative MANUALLY TRANSCRIBED RESULTS Urine 10/17/2024 11:2 7 AM EDT Frances Bee CAGE LOADER-FILLER MACHINE OPERATOR POINT OF CARE TEST ORDER DELISA Final Result Performing Organization Address City/[facility] Co de Phone Number MANUALLY TRANSCRIBED RESULTS * High Risk HPV w/Barb (10/17/2024 4:58 AM EDT) HPV 16 Negative Negative 10/21/2024 1:40 PM EDT [facility] HPV 18 Negative Negative 10/21/2024 1:40 PM EDT [facility] OTHER HIGH RISK HPV Negative Negative 10/21/2024 1:40 PM EDT [facility] Comment:HPV types 31, 33, 35 , 39, 45, 52, 56, 58, 59, 66, and 68 DNA were undetectable. Thin Prep (Cervix/Endocerv ix) 10/17/2024 4:58 AM EDT 10/21/2024 4:58 AM EDT Frances Bee CAGE LOADER-FILLER MACHINE OPERATOR LAB BLOOD ORDERABLES Fin al Result Performing Organization Address City/[facility]/ZIP Co de Phone Number [facility] [address] [place] [address], [place] [phone] from Last 3 Months Insurance [facility] [id number] [id number] [id number] Care Teams Flight Deck Officer Relationship Specialty Start Date End Date No Pcp, [place] [address] PCP - General Family Medicine 10/07/16
--- OUTSIDE RECORDS SUMMARY | 2024-11-25 09:52 | XMS_ITS | Clinical Summary ---
Author Organization [facility] Healthcare Address [address] [place] [address] Care Team Providers Care Seamless Hosiery Knitter Name Role Phone Franc Coppola MD Primary Care Provider [phone] Active Problems Problem Noted Date Diagnosed Date Acquired hallux valgus 10/19/2022 Bilateral carpal tunnel syndrome 10/19/2022 Bunion of left foot 10/19/2022 Contracture of left Achilles tendon 10/19/2022 Contracture, right ankle 10/19/2022 Degeneration, intervertebral disc, lumbar 2022 Fibrocystic breast changes 10/19/2022 Onychomycosis due to dermatophyte 10/19/2022 Other specified re lated conditions, first trimester ([facility]) 10/19/2022 Vaginal bleeding 10/19/2022 Family History Medical [...] THINPREP TIS PAP REFLEX HPV MRNA E6/E7 (53723) Routine 01/07/2020 from Last 3 Months or Most Recently Relevant to Health Maintenance Results * THINPREP TIS PAP REFLEX HPV MRNA E6/E7 (25134) (01/07/2020) CLINICAL INFORMATION: None given NOMS LEGACY [...] LAB Comment: JJK, CT(ASCP) CT screening location: [place] [address]. COMMENT SEE COMMENT NOMS LEG ACY EXTERNAL [...] Health Maintenance Insurance [employer] Care Teams Seamless Hosiery Knitter Relationship Specialty Start Date End Date Franc Coppola MD [address] [facility] [address] [place] [address] PCP - General Internal Medicine 10/19/22
--- OUTSIDE RECORDS SUMMARY | 2024-11-25 09:52 | XMS_ITS | Encounter Summary ---
Author Organization [employer] Address [id number] [address] [place] [address] Care Team Providers Care Crisis Specialist Name Role Phone No Pcp, No Pcp Primary Care Provider Unavailabl e Encounter Details Date Type Department Care Team (Late st Contact Info) Description 10/18/2024 [facility]olog y [address] [place] [address] Sharee Copeland RN POCT , urine, Thin Prep Pap Test, High Risk HPV w/Barb Social History Tobacco Use Types Packs/Day Years [...] documented as of this encounter Care Teams Crisis Specialist Relationship Specialty Start Date End Date No Pcp, [place] [address] PCP - General Family Medicine 10/07/16 documented as of this encounter
--- OUTSIDE RECORDS SUMMARY | 2024-11-25 10:00 | XMS_ITS | CCD ---
Author Organization [facility] CliniSysd Care Team Providers Care Surgical Dressing Maker Name Role Phone JASEN FRASER Attending Unavailable JASEN FRASER Consulting Unavailable EDGAR, DR FOWLER Primary Care Unavailable JASEN FRASER Admitting Unavailable EDGAR, DR FOWLER Attending Unavailable EDGAR, DR FOWLER Consulting Unavailable EDGAR, DR FOWLER Primary Care Unavailable EDGAR, DR FOWLER Admitting Unavailable JOSH, DR KIRA Lofton Consulting Unavailable No Pcp, No Pcp Primary Care Provider UnavailFRANCES Wilhelm Attending Unavailable NO PCP, NO PCP Primary Care Unavailable Medications Current Medications Medication Drug Class(es) Dates Sig (Normalized) Sig (Original) norethindrone 0.35 mg oral tablet (2 sources) Start: 10-21-2024 take 1 tablet by mouth in the morning norethindrone (MICRONOR) 0.35 mg tablet Indications: Encounter for initial prescription of contraceptive pills Take 1 tablet (0.35 mg total) by mouth in the morning. 28 tablet 11 10/21/2024 Active Completed/Discontinued Medications Medication Drug Class(es) Dates Sig (Normalized) Sig (Original) drospirenone, contraceptive, 4 mg (28) tablet (3 sources) Start: 10-17-2024 End: 10-21-2024 take 1 tablet by mouth in the morning drospirenone, contraceptive, 4 mg (28) tablet Indications: Encounter for initial prescription of contraceptive pills Take 4 mg by mouth in the morning. 84 tablet 3 10/17/2024 10/21/2024 Discontinued (Cost of medication) Start: 10-17-2024 take 1 tablet by zan th in the morning drospirenone, contraceptive, 4 mg (28) tablet Indications: Encounter for initial prescription of contraceptive pills Take 4 mg by mouth in the morning. 84 tablet 3 10/17/2024 Active 1 ml medroxyPROGESTERone acetate 150 mg/ml injection (1 source) Progestin End: 10-17-2024 medroxyPROGESTERone (DEPO-PROVERA) 150 mg/mL injection Inject 150 mg into the appropriate muscle every 3 (three) months. 10/17/2024 Discontinued (Therapy completed) sulfamethoxazole 800 mg / trimethoprim 160 mg oral tablet (1 source) Dihydrofolate Reductase Inhibitor Antibacterial, Sulfonamide Antimicrobial End: 10-17-2024 take 1 tablet by mouth twice daily sulfamethoxazole-trime thoprim (BACTRIM DS) 800-160 mg per tablet Take 1 tablet by mouth 2 (two) times a day. 10/17/2024 Discontinued (Therapy completed) Problems Active Problems Problem Classification Problem Date Documented Date Episodic/Chronic Acquired foot deformities (4 sources) Acquired hallux valgus; Translations: [Hallux valgus (acquired), unspecified foot] Onset: 10-19-2022 10-17-2024 Chronic Contraceptive and procreative management (3 sources) Patient encounter status; Translations: [Encounter for initial prescription of contraceptive pills] Onset: 10-17-2024 10-17-2024 Episodic Menstrual disorders (2 sources) Menorrhagia; Translations: [Excessive and frequent menstruation with regular cycle] Onset: 10-17-2024 10-17-2024 Chronic Other acquired deformities (4 sources) Contracture of joint of right ankle; Translations: [Contracture, right ankle] Onset: 10-19-2022 10-17-2024 Chronic Other connective tissue disease (1 source) Neuralgia and neuritis, unspecified; Translations: [NEURALGIA AND NEURITIS UNSPECIFIED] Onset: 04-14-2021 Episodic Other nervous system disorders (4 sources) Bilateral carpal tunnel syndrome; Translations: [Carpal tunnel syndrome, bilateral upper limbs] Onset: 10-19-2022 10-17-2024 Chronic Other nutritional; endocrine; and metabolic disorders (4 sources) Body mass index 25-29 - overweight; [...] Spondylosis; intervertebral disc disorders; other back problems (4 sources) Degeneration of lumbar intervertebral disc; Translations: [Degeneration, intervertebral disc, lumbar] Onset: 10-19-2022 10-17-2024 Chronic Substance-related disorders (4 sources) Smoker; Translations: [Nicotine dependence, unspecified, uncomplicated] Onset: 10-17-2024 10-17-2024 Chronic Unclassified (3 sources) LOW BACK PAIN, UNSPECIFIED; Translations: [LOW BACK PAIN, UNSPECIFIED] Onset: 04-14-2021 Past or Other Problems Problem Classification Problem Date Documented Date Episodic/Chronic Acquired foot deformities (4 sources) Bunion; Translations: [Bunion of left foot] Onset: 10-19-2022 10-17-2024 Episodic Mood disorders (4 sources) Mood disorders Onset: 10-17-2024 10-17-2024 Mycoses (4 sources) Onychomycosis due to dermatophyte ; Translations: [Tinea unguium] Onset: 10-19-2022 10-17-2024 Episodic Other complications of (4 sources) Other specified related conditions, first trimester; Translations: [OTH SPEC PREG RELATED COND 1ST TRI] Onset: 07-28-2020 Episodic Other connective tissue disease (4 sources) Contracture of left Achilles tendon; Translations: [Short Achilles tendon (acquired), left ankle] Onset: 10-19-2022 10-17-2024 Episodic Unclassified (1 source) LOW BACK PAIN, UNSPECIFIED; Translations: [LOW BACK PAIN, UNSPECIFIED] Onset: 04-07-2021 Unclassified (4 sources) Onset: 10-17-2024 10-17-2024 Results Test Name Value Interpretation Reference Range Facility HIGH RISK HPV W/GENOon 10-17 HPV 16 Negative Normal Negative [facility] Comment on above: Performed By: #### H PV #### [facility] ([facility]) [address] [place] [address] VIR HPV 18 Negative Normal Negative [facility] Comment on above: Performed By: #### H PV #### [facility] ([facility]) [address] [place] [address] VIR OTHER HIGH RISK HPV Negative Normal Negative [facility] Comment on above: Result Comment: HPV types 31, 33, 35, 39, 45, 52, 56, 58, 59, 66, and 68 DNA were undetectable. Performed By: #### H RADHA #### [facility] ([facility]) [address] [place] [address] VIR POCT , urineon 10-01 Beta HCG ( test) Ql (U) Negative [facility] Interpretation and review of laboratory results Normal [employer] [facility] XR CSPINE OBL FLEX_EXTon XR CSPINE OBL [...] by: KIRA MORENO Date: 2021-04-07 13:56 Normal [facility] XR LSPINE 2_3 VIEWSon 2021 XR LSPINE 2_3 VIEWS EXAMINATION: XR LSPINE 2_3 VIEWS HISTORY: Low back pain COMPARISON: XR lumbar spine 01/07/2010 FINDINGS: BONES: No significant spondylosis, scoliosis, fracture, or visible bony lesion. DISC SPACES: Moderate narrowing L5-S1. PARASPINOUS: Negative. No paraspinous abnormality is seen. OTHER: Negative. IMPRESSION: 1. L5-S1 mild-moderate degenerative disc disease; slightly progressed. Electronically authenticated by: KIRA MORENO Date: 2021-04-07 13:58 Normal [facility] Basic Metabolic Panelon 06-0 Calcium [Mass/Vol] 8.9 mg/dL Normal 8.2-10.2 [facility] Comment on above: Performed By: #### C BC, BMP, PP #### [facility] [address] [place] [address] [place] Chloride [Moles/Vol] 102 mmol/L Normal 95-114 [facility] Comment on above: Performed By: #### C BC, BMP, PP #### [facility] [address] CO2 [Moles/Vol] 23.3 mmol/L Normal 22.0-30.0 [facility] Comment on above: Performed By: #### C BC, BMP, PP #### [facility] [address] Creatinine [Mass/Vol] 0.73 mg/dL Normal 0.44-1.03 [facility] Comment on above: Performed By: #### C BC, BMP, PP #### [facility] [address] [place] [address] [place] Creatinine Clr Calc Pharmacy 107.37 [facility] Comment on above: Result Comment: PERF ORMED BY: [place] [address] PATHOLOGIST NOODLE CATALYST MAKER SOURAV TOBIAS M.D. Performed By: #### C BC, BMP, PP #### [address] Estimated GFR ( Winnie > 60 [facility] Comment on above: Result Comment: GFR estimated reference range: According to KDOQI guidelines, <60 ml/min/1.73m2 is sufficient to diagnose a patient with chronic kidney disease. Performed By: #### C BC, BMP, PP #### [facility] [address] Estimated GFR (Non- Am > 60 [facility] Comment on above: Performed By: #### C BC, BMP, PP #### [facility] [address] Glucose [Mass/Vol] 98 mg/dL Normal 70-100 [facility] Comment on above: Result Comment: [place] Glucose Reference Range is dependent on time and content of last meal. Glucose of more than 200 mg/dL in a nonstressed, ambulatory subject supports the diagnosis of Diabetes Mellitus. ADA recommended reference range Performed By: #### C ALONDRA ADHIKARI, PP #### [facility] [address] Potassium [Moles/Vol] 3.4 mmol/L Low 3.5-5.1 [facility] Comment on above: Performed By: #### C ZEYNEP, ALONDRA, PP #### [facility] [address] [place] [id number] [facility] Sodium [Moles/Vol] 136 mmol/L Normal 136-146 [facility] Comment on above: Performed By: #### C ALONDRA ADHIKARI, PP #### [facility] [address] [place] [id number] [facility] Urea nitrogen [Mass/Vol] 6 mg/dL Low 9-23 [facility] Comment on above: Performed By: #### C ZEYNEP, ALONDRA, PP #### [facility] [address] [place] [id number] [facility] COVID-19 Antigenon 1 COVID-19 Antigen Healthcare Worker?: [...] its performance Danelle Disclaimer characteristic determined by [employer] and Danelle Disclaimer validated at [facility]. This Danelle Disclaimer test has not been [...] Emergency Use Authorization for Coronavirus Danelle Disclaimer during the Public Health Emergency) Danelle Disclaimer [...] is terminated or revoked sooner. PERFORMED BY: [facility] [address] [place] [address] PATHOLOGIST NOODLE CATALYST MAKER SOURAV TOBIAS M.D. Normal [facility] Comment on above: Performed By: #### C OVID 19 [facility], CEDIANEG, COVID-19 DANELLE #### [facility] [address] [place] [id number] [facility] COVID-19 FRMCon 09-05-2020 SARS-CoV-2 (COVID-19) RNA SHRAVAN+probe Ql (Unsp spec) Negative Normal Negative [facility] Comment on above: Order Comment: Healt hcare Worker?: N Result Comment: Testing for SARS-CoV-2 by RT-PCR This test was developed and its performance characteristics determined by [employer]) and validated at the [facility]. This test has not been FDA cleared [...] is terminated or revoked sooner. PERFORMED BY: [facility] [address] [place] [id number] PATHOLOGIST NOODLE CATALYST MAKER SOURAV TOBIAS M.D. Performed By: #### C OVID 19 [facility], CEDSHELBIENADIA, COVID-19 DANELLE #### [facility] [address] [place] [id number] [facility] Coagulation Profileon 2020 aPTT Coag (Bld) [Time] 41.8 s High 25.1-36.5 [facility] Comment on above: Result Comment: PERF ORMED BY: [facility] [address] [place] [id number] PATHOLOGIST NOODLE CATALYST MAKER SOURAV TOBIAS M.D. Performed By: #### C ALONDRA ADHIKARI, PP #### [address] INR Coag (PPP) [Relative time] 1.1 {INR} Normal [facility] Comment on above: Result Comment: INR Therapeutic [...] By: #### C ALONDRA ADHIKARI, PP #### [address] PT Coag (PPP) [Time] 11.8 s Normal 9.0-12.9 [facility] Comment on above: Performed By: #### C ALONDRA ADHIKARI, PP #### [address] Complete Blood Count Auto Di ffon 09-05-2020 Basophils (Bld) [#/Vol] 0.1 10*3/uL Normal 0.0-0.2 [facility] Comment on above: Result Comment: PERF ORMED BY: [place] [address] PATHOLOGIST NOODLE CATALYST MAKER SOURAV TOBIAS M.D. Performed By: #### C ALONDRA ADHIKARI, PP #### [address] Basophils/100 WBC (Bld) 0.7 % Normal . [facility] Comment on above: Performed By: #### C ALONDRA ADHIKARI, PP #### [address] Eosinophils (Bld) [#/Vol] 0.4 10*3/uL Normal 0.0-0.45 [facility] Comment on above: Performed By: #### C ALONDRA ADHIKARI, PP #### [facility] [address] Eosinophils/100 WBC (Bld) 4.7 % Normal . [facility] Comment on above: Performed By: #### C ALONDRA ADHIKARI, PP #### [facility] [address] Erythrocyte distribution width (RBC) [Ratio] 12.6 % Normal 11.9-15.3 [facility] Comment on above: Performed By: #### C ALONDRA ADHIKARI, PP #### [address] Hematocrit (Bld) [Volume fraction] 37.2 % Normal 34.0-46.4 [facility] Comment on above: Performed By: #### C ALONDRA ADHIKARI, PP #### [address] Hemoglobin (Bld) [Mass/Vol] 13.0 g/dL Normal 11.8-15.4 [facility] Comment on above: Performed By: #### C ALONDRA ADHIKARI, PP #### [address] Lymphocytes (Bld) [#/Vol] 2.5 10*3/uL Normal 1.00-4.8 [facility] Comment on above: Performed By: #### C ALONDRA ADHIKARI, PP #### [address] Lymphocytes/100 WBC (Bld) 32.3 % Normal . [facility] Comment on above: Performed By: #### C ALONDRA ADHIKARI, PP #### [address] MCH (RBC) [Entitic mass] 29.7 pg Normal 24.7-34.3 [facility] Comment on above: Performed By: #### C ALONDRA ADHIKARI, PP #### [address] MCV (RBC) [Entitic vol] 85.1 fL Normal 80-100 [facility] Comment on above: Performed By: #### C BC, BMP, PP #### [facility] [address] Mean Corpuscular HGB Conc 34.9 g/dL Normal 32.0-35.0 [facility] Comment on above: Performed By: #### C ZEYNEP BMP, PP #### [facility] [address] [place] [address] [place] Monocytes (Bld) [#/Vol] 0.6 10*3/uL Normal 0.0-0.8 [facility] Comment on above: Performed By: #### C ZEYNEP, BMP, PP #### [facility] [address] [place] [address] [place] Monocytes/100 WBC (Bld) 8.3 % Normal . [facility] Comment on above: Performed By: #### C ZEYNEP BMP, PP #### [facility] [address] [place] [address] [place] Neutrophils (Bld) [#/Vol] 4.2 10*3/uL Normal 1.8-7.7 [facility] Comment on above: Performed By: #### C ZEYNEP BMP, PP #### [facility] [address] [place] [address] [place] Neutrophils/100 WBC (Bld) 54.0 % Normal . [facility] Comment on above: Performed By: #### C ZEYNEP BMP, PP #### [facility] [address] [place] [address] [place] Nucleated RBC/100 WBC (Bld) [Ratio] 0.4 % Normal 0-0.5 [facility] Comment on above: Performed By: #### C ZEYNEP, BMP, PP #### [facility] [address] [place] [address] [place] Platelet mean volume (Bld) [Entitic vol] 9.0 fL Normal 6.3-10.7 [facility] Comment on above: Performed By: #### C BC, BMP, PP #### [facility] [address] [place] [address] [place] Platelets (Bld) [#/Vol] 195 10*3/uL Normal 150-450 [facility] Comment on above: Performed By: #### C BC, BMP, PP #### [facility] [address] [place] [address] [place] RBC (Bld) [#/Vol] 4.38 10*6/uL Normal 3.60-5.00 [facility] Comment on above: Performed By: #### C BC, BMP, PP #### [facility] [address] [place] [address] [place] WBC (Bld) [#/Vol] 7.8 10*3/uL Normal 4.5-11.0 [facility] Comment on above: Performed By: #### C BC, BMP, PP #### [place] [address] [place] Dipstick and Microscopicon 0 09-05-2020 Appearance (U) Clear Normal Clear [facility] Comment on above: Order Comment: Name Collection Type:: Clean-Voided Midstream Performed By: #### U HCG, ADDONUAPLUS #### [address] Bacteria,Urine None Seen Normal None Seen [facility] Comment on above: Order Comment: Name Collection Type:: Clean-Voided Midstream Performed By: #### U HCG, ADDONUAPLUS #### [address] Bilirubin,Urine Negative Normal Negative [facility] Comment on above: Order Comment: Name Collection Type:: Clean-Voided Midstream Performed By: #### U HCG, ADDONUAPLUS #### [address] Color (U) Yellow Normal Yellow [facility] Comment on above: Order Comment: Name Collection Type:: Clean-Voided Midstream Performed By: #### U HCG, ADDONUAPLUS #### [address] Glucose Ql (U) Normal Normal Normal [facility] Comment on above: Order Comment: Name Collection Type:: Clean-Voided Midstream Performed By: #### U HCG, ADDONUAPLUS #### [address] [place] [address] [place] Hyaline Casts,Urine 0-8 Normal 0-8 [facility] Comment on above: Order Comment: Name Collection Type:: Clean-Voided Midstream Performed By: #### U HCG, ADDONUAPLUS #### [address] Ketones Ql (U) Negative Normal Negative [facility] Comment on above: Order Comment: Name Collection Type:: Clean-Voided Midstream Performed By: #### U HCG, ADDONUAPLUS #### [address] Leukocyte esterase Test strip Ql (U) Negative Normal Negative [facility] Comment on above: Order Comment: Name Collection Type:: Clean-Voided Midstream Performed By: #### U HCG, ADDONUAPLUS #### [address] Nitrite,Urine Negative Normal Negative [facility] Comment on above: Order Comment: Name Collection Type:: Clean-Voided Midstream Performed By: #### U HCG, ADDONUAPLUS #### [address] Occult Blood,Urine 3+ High Negative [facility] Comment on above: Order Comment: Name Collection Type:: Clean-Voided Midstream Performed By: #### U HCG, ADDONUAPLUS #### [address] pH (U) [pH] Normal 5.0-9.0 [facility] Comment on above: Order Comment: Name Collection Type:: Clean-Voided Midstream Performed By: #### U HCG, ADDONUAPLUS #### [address] Protein,Urine Negative Normal Negative [facility] Comment on above: Order Comment: Name Collection Type:: Clean-Voided Midstream Performed By: #### U HCG, ADDONUAPLUS #### [facility] [address] [place] [address] RBC LM.HPF (Urine sed) [#/Area] 0 /[HPF] Normal 0-4 [facility] Comment on above: Order Comment: Name Collection Type:: Clean-Voided Midstream Performed By: #### U HCG, ADDONUAPLUS #### [address] Renal Epithelial Cells,Urine 0-1 Normal 0-1 [facility] Comment on above: Order Comment: Name Collection Type:: Clean-Voided Midstream Performed By: #### U HCG, ADDONUAPLUS #### [address] Specificy [place],Urine 1.008 Normal 1.001-1.030 [facility] Comment on above: Order Comment: Name Collection Type:: Clean-Voided Midstream Performed By: #### U HCG, ADDONUAPLUS #### [address] Squamous Epithelial Cell,Urine 1-2 Normal 0-2 [facility] Comment on above: Order Comment: Name Collection Type:: Clean-Voided Midstream Performed By: #### U HCG, ADDONUAPLUS #### [address] Urobilinogen,Urine Normal Normal Normal [facility] Comment on above: Order Comment: Name Collection Type:: Clean-Voided Midstream Performed By: #### U HCG, ADDONUAPLUS #### [place] [address] [place] WBC LM.HPF (Urine sed) [#/Area] 0 /[HPF] Normal 0-4 [facility] Comment on above: Order Comment: Name Collection Type:: Clean-Voided Midstream Performed By: #### U HCG, ADDONUAPLUS #### [address] ECG 12 lead ECGon 09-05-2020 ECG 12 lead ECG [facility] [place] [address] [place] [address] Electrocardiograph Report Signed Patient: Francheska Diego MR#: [id number] : 1985 Acct:[id number] Age/Sex: 35 / F ADM Date: 09/05/20 Loc: ER Room: Type: [facility] ER Attending Dr: Ordering Provider: [...] DO 09/05/20 0320 Signed By: 09/06/20 1147 [facility] HCG,Quantitativeon HCG,Quantitative 14.26 m[iU]/mL [facility] Comment on above: Result Comment: Appr oximate Approximate hCG Gestational Age Range (mIU/ml) (weeks) 0.2-1 5-50 1-2 50-500 2-3 100-5,000 3-4 500-10,000 4-5 1,000-50,000 5-6 10,000-100,000 6-8 15,000-200,000 8-12 10,000-100,000 PERFORMED BY: [address] [place] [address] PATHOLOGIST NOODLE CATALYST MAKER SOURAV TOBIAS M.D. Performed By: #### H CGQNT #### [place] [id number] [facility] HCG,Urineon 09-05-2020 Beta HCG ( test) Ql (U) Negative [facility] Comment on above: Order Comment: Name Collection Type:: Clean-Voided Midstream Result Comment: PERF ORMED BY: [address] [place] [address] PATHOLOGIST NOODLE CATALYST MAKER SOURAV TOBIAS M.D. Performed By: #### U HCG, ADDONUAPLUS #### [facility] [address] [place] [address] [place] Danelle Ag Negativeon 09-06-19 Danelle Ag Negative Negative Normal Negative [facility] Comment on above: Result Comment: This is a duplicate Danelle SARS Antigen (ANU) result to be used for statistical tracking purpose only. PERFORMED BY: [place] [address] PATHOLOGIST NOODLE CATALYST MAKER SOURAV TOBIAS M.D. Performed By: #### C OVID 19 [facility], SOFIANEG, COVID-19 DANELLE #### [address] Type and Screenon 09-05-2020 ABO and Rh group Nom (Bld) Blood group O Rh(D) positive Normal [facility] Comment on above: Result Comment: PERF ORMED BY: [place] [address] PATHOLOGIST NOODLE CATALYST MAKER SOURAV TOBIAS M.D. US transvaginalon 09-05-2020 US transvaginal [facility] [place] [address] [place] [address] Ultrasound Report Signed Patient: Francheska Diego MR#: [id number] : 1985 Acct:[id number] Age/Sex: 35 / F ADM Date: 09/05/20 Loc: ER Room: Type: [facility] ER Attending Dr: Ordering Provider: Gaston Menjivar Jr, MD Date of Service: 09/05/20 US/US pelvic complete: heavy bleeding recent elective Ab, r/o retained POC ([id number]) US/US transvaginal: . Copies to: Gaston Menjivar [...] Christianson Jr., M.D.09/05/2020 9:19 AM Dictation Location: [place] [address] Tech: Lulu Willoughby Transcribed By: MELITON 09/05/20918 Dictated By: Warren Christianson Jr, MD 09/05/20909 Signed By: 09/05/20918 [facility] PREG QUANT HCGon 07-28-2020 HCG QUANT 54857 mIU/mL Normal [facility] Comment on above: Result Comment: Veri fied by dilution. Performed By: #### P REGQNT #### [facility] [address] [place], [place] [id number] John Zamorano HCG RANGE SEE BELOW Normal [facility] Comment on above: Result Comment: 5-50 0-1 WEEK 40-300 1-2 WEEKS 100-1,000 2-3 WEEKS 500-6,000 3-4 WEEKS 5,000-200,000 1-2 MONTHS 10,000-100,000 2-3 MONTHS 3,000-50,000 2ND TRIMESTER 1,000-50,000 3RD TRIMESTER Performed By: #### P REGQNT #### [facility] [address] [place], [place] [address] John Zamorano Vital Signs Date Time Vital Sign Value Performing Clinician Christiano charles 10-17-2024 11:03-0400 Body height 166.4 cm Frances Zuniga ART GALLERY DIRECTOR-CUSTOMER SERVICE CLERK Work Phone: [employer] 10-17-2024 11:03-0400 Body mass index (BMI) [Ratio] 29.56 kg/m2 Frances Zuniga ART GALLERY DIRECTOR-CUSTOMER SERVICE CLERK Work Phone: [facility] [employer] [facility] 10-17-2024 11:03-0400 Body weight 81.83 kg Frances Ricardozer ART GALLERY DIRECTOR-CUSTOMER SERVICE CLERK Work Phone: [facility] [employer] [facility] 10-17-2024 11:03-0400 Diastolic blood pressure 68 mm[Hg] Frances Krkennzer ART GALLERY DIRECTOR-CUSTOMER SERVICE CLERK Work Phone: [facility] [employer] [facility] 10-17-2024 11:03-0400 Systolic blood pressure 102 mm[Hg] Frances Ricardozer ART GALLERY DIRECTOR-CUSTOMER SERVICE CLERK Work Phone: [facility] Encounters Encounter Date Encounter Type Care Provider Facility Start: 10-21-2024 End: 10-21-2024 Orders Only Frances Zuniga ART GALLERY DIRECTOR-CUSTOMER SERVICE CLERK Work Phone: [facility] Obstetrics/Gynecology Comment on above: Encounter for initia l prescription of contraceptive pills (Primary Dx) Start: 10-18-2024 End: 10-18-2024 Encounter for gynecological examination (general) (routine) without abnormal findings Sharee Copeland RN [facility] [employer] [facility] Start: 10-18-2024 End: 10-18-2024 Orders Only Sharee Copeland RN [facility] Obstetrics/Gynecology Comment on above: Pap smear, as part o f routine gynecological examination (Primary Dx) Start: 10-17-2024 End: 10-17-2024 Initial preventive medicine new pt age 18-39yrs Farnces Zuniga ART GALLERY DIRECTOR-CUSTOMER SERVICE CLERK [facility] Comment on above: Well woman exam with routine gynecological exam (Primary Dx); Encounter for screening mammogram for malignant neoplasm of breast; Encounter for initial prescription of contraceptive pills; Menorrhagia with regular cycle; Standardized adult depression screening tool completed; Screening for cervical cancer; Pap smear, as part of routine gynecological examination Start: 10-17-2024 End: 10-17-2024 Patient encounter procedure Frances Zuniga ART GALLERY DIRECTOR-CUSTOMER SERVICE CLERK Work Phone: [facility] Start: 10-17-2024 End: 10-17-2024 ambulatory FRANCES ZUNIGA [facility] Start: 10-17-2024 End: 10-17-2024 Encounter for gynecological examination (general) (routine) without abnormal findings Frances Zuniga ART GALLERY DIRECTOR-CUSTOMER SERVICE CLERK Work Phone: [facility] Start: 04-07-2021 End: 04-08-[address] JANETH HERNÁNDEZ Facility:[facility] Start: 07-28-2020 End: 07-29-2020 ambulatory JASEN GARNTETYANNIYAMILKA Facility:[facility] Procedures Date Procedure Procedure Detail Performing Clinician Start: 10-17-2024 Urine test visual color cmprsn meths Frances Zuniga ART GALLERY DIRECTOR-CUSTOMER SERVICE CLERK Work Phone: Start: 10-17-2024 Adult depression scr eening assessment Frances Zuniga ART GALLERY DIRECTOR-CUSTOMER SERVICE CLERK Work Phone: Start: 10-17-2024 Microscopic observat ion [Identifier] in Cervix by Cyto stain Frances Zuniga ART GALLERY DIRECTOR-CUSTOMER SERVICE CLERK Work Phone: Start: 09-05-2020 Antibody screen Comment on above: Result Comment: PERF ORMED BY: [address] [place] [address] PATHOLOGIST NOODLE CATALYST MAKER SOURAV TOBIAS M.D. Plan of Treatment Date Care Activity Detail Author Start: 10-18-2027 Screening for malign ant neoplasm of cervix Pap Smear [facility] Start: 10-17-2025 Adult BMI Follow Up Plan Adult BMI Follow Up Plan [facility] Start: 10-17-2025 Adult BMI Screening Adult BMI Screen ing [facility] Start: 10-17-2025 Depression Screening Depression Scre ening [facility] Start: 10-17-2025 Tobacco Screening Tobacco Screening [facility] Start: 12-02-2024 Influenza vaccination Influenza Vacc ine [facility] Start: 10-17-2024 End: 10-17-2025 US Pelvis transabdominal and transvaginal Ultrasound pelvic with transvaginal Imaging Routine Menorrhagia with regular cycle Expected: 10/17/2024, Expires: 10[facility]17[facility]25 [facility] Comment on above: Expected: 10/17/2024 , Expires: 10/17/2025 Start: 2006 Screening for malign ant neoplasm of cervix [facility] Start: 2004 DTaP,Tdap and Td Vac cines (1 - Tdap) DTaP,Tdap and Td Vaccines (1 - Tdap) [facility] Start: 1985 Tobacco Counseling [facility] Counselin g [facility] DBT Breast - bilater al screening Mammography screening bilateral with CAD Imaging Routine Encounter for screening mammogram for malignant neoplasm of breast Ordered: 10/17/2024 [employer] Work Phone: Comment on above: Ordered: 10/17/2024 End: 10-18-2025 High Risk HPV w/Barb High Risk HPV w/Barb Lab Routine Pap smear, as part of routine gynecological examination 1 Occurrences starting 10/18/2024 until 10/18/2025 [employer] Work Phone: Comment on above: 1 Occurrences starti ng 10/18/2024 until 10/18/2025 Thin Prep Pap Test Thin Prep Pap Test Pathology and Cytology Routine Pap smear, as part of routine gynecological examination 10/17/2024 12:25 PM EDT [employer] Payers Date Payer Category Payer [facility] Care - Other [facility] [id number] 2024 Unknown [id number] 1985 Unknown [id number] 1985 Unknown [id number] 1985 Unknown [id number] 1959 Unknown [id number] Social History Date Type Detail Facility Start: 10-17-2024 [facility] History of tobacco use Cigarette Smoker P [facility] Start: 10-17-2024 Tobacco use and exposure Smokeless tobacco non-user [facility] Start: 10-17-2024 Alcoholic beverage intake Ex-drinker (finding) [facility] Start: 05-14-2020 End: 10-17-2024 History of Social function [facility] Start: 05-14-2020 End: 10-17-2024 Tobacco use panel [facility] Adolescent depressio n screening assessment 1 [facility] Start: 1985 Sex assigned at Not on file P [facility] Start: 11-06-2014 Sex Female (finding) [facility] Clinical Notes 10-17-2024 to 10-21-2024 Telephone Encounter - Argenis Brooks - 10/21/2024 10:09 AM EDTTelephone Encounter - Frances Zuniga APRN-NHUNG - 10/21/2024 10:09 AM EDTTelephone Encounter - Argenis Brooks - 10/21/2024 10:09 AM EDT Note Date & Type Note Facility 10-21-2024 Miscellaneous Notes Formattin g of this note might be different from the original. Pt states she went to [facility], but her out of pocket cost was going to be over $100. Pt is wondering if there is a different BC RX that can be sent. Pt states she is not against doing Depo again if there isn't a different RX. Please advise. Thank you Alternate medication sent. Advised Pt new RX was sent. documented in this encounter [facility] 10-21-2024 Telephone encount er Note Pt states she went to [facility], but her out of pocket cost was going to be over $100. Pt is wondering if there is a different BC RX that can be sent. Pt states she is not against doing Depo again if there isn't a different RX. Please advise. Thank you [facility] 10-21-2024 Telephone encount er Note Alternate medication sent. [facility] 10-21-2024 Telephone encount er Note Advised Pt new RX was sent. [facility] 10-18-2024 History of Presen t illness Narrative HPV Order placed. - Sharee Copeland RN 10/18/24 1:47 PM documented in this encounter [facility] 10-17-2024 History of Presen t illness Narrative Annual Well Woman Visit 10/17/2024 Deborah Diego is a pleasant 39 y.o. 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 Follow up as needed. Await pap. Discussed ASCCP screening guidelines. Discussed taking a multivitamin. Discussed Calcium and Vitamin D for prevention of osteoporosis. Discussed recommendations for HPV vaccine between 9-45 yo. Can be received at [facility] or the [facility] [place] department. Discussed need for yearly mammogram after 40 yo. Encouraged smoking cessation. Discussed colon cancer screening recommendations to begin at 45 yo, patient to discuss with PCP. All questions answered. MICHAELA Gupta APRN-[place] Kerr 10/17/24 1210 documented in this encounter [facility] Evaluation note Diagnosis Well woman exam with [...] of the cervix documented in this encounter [facility] System[facility]* Diagnosis Pap smear, as part of routine gynecological examination- Primary Screening for malignant neoplasm of the cervix documented in this encounter [facility]* Diagnosis Encounter for initial prescription of contraceptive pills- Primary documented in this encounter [facility] SystemInstructions* Attachments The following attachments cannot be sent through Care Everywhere. * Calcium and vitamin D for bone health (German) * Drospirenone, ADULT (German) * Quitting smoking for adults (German) [facility]ructionsNot on file documented [facility] SystemInstructionsNot on file documented in [facility] encounterAs[facility] Summary Purpose Family History No Family History Records FoundNo Family History Records FoundNo Family History Records Found Advance Directives No Advanced Directives Records FoundNo Advanced Directives Records FoundNo Advanced Directives Records Found Additional Source Comments INFORMATION SOURCE (unrecogn ized section and content) DATE CREATED AUTHOR 04/15/2021 [facility] DATE CREATED AUTHOR AUTHOR'S ORGANIZ ATION 04/22/2021 [facility] DATE CREATED AUTHOR AUTHOR'S ORGANIZ ATION 10/23/2024 [facility] Reason for Visit (unrecogniz ed section and content) Reason Comments Gynecologic Exam Care Teams (unrecognized sec tion and content) Surgical Dressing Maker Relationship Specialty Start Date End Date No Pcp[place] [id number] PCP - General Family Medicine 10/07/16 Surgical Dressing Maker Relationship Specialty Start Date End Date No Pcp, [place] [address] PCP - General Family Medicine 10/07/16 FOR [...] BE BASED ON THE PRIMARY CLINICAL RECORDS. [facility]. provides no warranty or guarantee of the accuracy or completeness of information in this document.
--- NOTE | 2024-11-25 10:16 | XR_ITS ---
The [address] [address] Patient Name: RIKY ARREAGA MRN: [id number] date: 1985 Sex: F Assigned Patient Location: [facility] Current Patient Location: [facility] Accession/Order Number: [id number] Exam Date: 11/25/2024 10:30 Report Date: 11/25/2024 12:03 At the request of: FERNANDO METZ DPM Procedure: XR chest 2V PA AND LATERAL CHEST: CLINICAL HISTORY: Preoperative clearance. Cigarette use. COMPARISON: None There is no focal parenchymal consolidation, effusion or pneumothorax. The cardiac, hilar and mediastinal silhouettes are within normal limits. There is no vascular congestion. The visualized bony thorax is intact. There is mild dextroscoliotic curvature. XR/XR chest 2V IMPRESSION: NO ACUTE CARDIOPULMONARY ABNORMALITY. Impression dictated by: Lona Mendez M.D. 11/25/2024 12:03 PM Dictation Location: [place] [address] Electronically authenticated by: [id number] Y Date: 11/25/2024 12:03
[2024-11-25 10:45] LABS: Hematocrit 41.1 % (36.0-48.0); Hemoglobin 13.8 g/dL (12.0-16.0); Immature Granulocytes Abs Auto 0.02 10^3/uL (0.00-0.03); Immature Granulocytes Pct Auto 0.2 % (0.0-0.5); Lymphocytes Absolute Auto 2.0 10^3/uL (1.2-3.8); Mean Corpuscular HGB Conc 33.6 g/dL (29.9-35.2); Mean Corpuscular Hemoglobin 28.8 pg (26.7-34.0); Mean Corpuscular Volume 85.6 fL (81.0-99.0); Platelet Count 260 10^3/uL (150-450); Red Blood Count 4.80 10^6/uL (4.20-5.40); White Blood Count 10.2 10^3/uL (4.0-11.0)
--- NOTE | 2024-11-25 10:45 | PM.PRESUREVA ---
History of Present Illness History of Present Illness Chief complaint: Right Hallux Valgus Narrative: Patient presents for presurgical testing. The patient reports a long history of right foot pain and bunion deformity. The patient states this has been ongoing and she has tried to manage this on her own with alternative footwear, toe spacers, and anti-inflammatories. She states her pain is worse when she is on her feet for long periods of time while working. The patient denies any injury, trauma, numbness, tingling, or any other complaints. Review of Systems ROS Narrative REVIEW OF SYSTEMS: Negative except as stated in HPI, ten or more systems reviewed. Constitutional: No fever, chills, weakness ENT: No sore throat or epistaxis Cardiovascular: No edema, chest pain, palpitations, or activity intolerance Respiratory: No shortness of breath, cough, or wheezing Gastrointestinal: No abdominal pain, constipation, diarrhea, or vomiting Genitourinary: No dysuria or hematuria Neurological: No numbness, tingling, weakness, or headache Psychiatric: No mood changes PFSH PFSH Medical History (Updated 11/25/24 @ 10:38 by María Ureña NP) Deformity of toe of right foot ?M20.61 - Acquired deformities of toe(s), unspecified, right foot (ICD-10) Neck pain ?M54.2 - Cervicalgia (ICD-10) Menorrhagia ?N92.0 - Excessive and frequent menstruation with regular cycle (ICD-10) History of blood transfusion ?Z92.89 - Personal history of other medical treatment (ICD-10) Asthma ?J45.909 - Unspecified asthma, uncomplicated (ICD-10) Arthritis ?M19.90 - Unspecified osteoarthritis, unspecified site (ICD-10) Anemia ?D64.9 - Anemia, unspecified (ICD-10) Right foot pain ?M79.671 - Pain in right foot (ICD-10) Hallux valgus (acquired), right foot ?M20.11 - Hallux valgus (acquired), right foot (ICD-10) Surgical History (Updated 11/25/24 @ 10:02 by María Ureña NP) History of carpal tunnel surgery ?Z98.890 - Other specified postprocedural states (ICD-10) H/O wisdom tooth extraction ?K08.409 - Partial loss of teeth, unspecified cause, unspecified class (ICD-10) H/O section ?Z98.891 - History of uterine scar from previous surgery (ICD-10) Family History (Updated 11/25/24 @ 10:14 by María Ureña NP) Other Brain tumor Family history of cancer Family history of hypertension Family history of stroke Social History (Updated 11/25/24 @ 10:07 by María Ureña NP) Within the past year, how often did you have a drink containing alcohol: monthly or less Smoking status: Current every day smoker What tobacco products do you use: cigarettes Cigarettes per day: 10 Years smoked: 22 Smoking pack-years: 11.00 Do you use any of these nicotine containing products: vaping products 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 Highest level of school completed/degree received: high school graduate Little interest or pleasure in doing things: not at all Feeling down, depressed, or hopeless: not at all Meds Home Medications and Allergies Home Medications ?Medication ?Instructions ?Recorded ?Confirmed ?Type norethindrone (contraceptive) 0.35 0.35 mg PO DAILY 11/25/24 11/25/24 History mg tablet ([employer]) Allergies Allergy/AdvReac Type Severity Reaction Status Date / Time No Known Drug Allergies Allergy Verified 11/25/24 10:05 Exam Narrative Exam Narrative: Constitutional: Awake, alert, comfortable, well-appearing, nontoxic, interactive, vital signs as charted Head: Normocephalic, atraumatic Neck: Supple, normal appearance, normal range of motion, no meningeal signs, no lymphadenopathy Respiratory: No respiratory distress, breath sounds clear Cardiovascular: Regular rate and rhythm, strong and regular heart tones Abdomen: Nontender, normal bowel sounds, soft Musculoskeletal: Normal gait, no swelling or edema; right foot obvious hallux valgus deformity with tenderness overlying the first MTP, deformity of the fifth digit, good capillary refill, sensation intact Skin: No rashes or induration, no lesions, only visible skin inspected Neuro: No neurological deficits, normal sensation Psychiatric: Oriented ?3, normal affect Assessment and Plan Assessment and Plan (1) Hallux valgus (acquired), right foot: (2) Right foot pain: (3) Deformity of toe of right foot: Plan Right first metatarsal phalangeal joint fusion with bone graft as needed and correction of fifth toe deformity scheduled with Dr. Barnes December 03, 2024. Procedure will need verified when consent is received from Dr. Barnes's office.
== END 2024-11-25 09:51 | disposition home or self-care (01) ==
LOC: PST 09:50
PROVIDERS: Visit Provider Podiatrist Foot & Ankle Surgery
DX: Z01.810 Encounter for preprocedural cardiovascular examination (principal); Z01.812 Encounter for preprocedural laboratory examination; Z01.818 Encounter for other preprocedural examination; M20.11 Hallux valgus (acquired), right foot
CPT/HCPCS: 71046; 85025; G0463

== ENCOUNTER 2024-12-03 07:03 | Day surgery (SDC) | payer BC, SELFPAY ==
[2024-11-25 10:36] VITALS: BP 120/74; PULSE 97; TEMP 36.5; O2SAT 98
[2024-12-03] VITALS (9 sets, daily range): BP systolic 110–143; BP diastolic 67–92; PULSE 70–89; TEMP 36.3–36.7; O2SAT 98–100; BMI 30.2
--- OUTSIDE RECORDS SUMMARY | 2024-12-03 07:07 | XMS_ITS | CCD ---
Author Organization [facility] Care Team Providers Care Pbx Repairer Name Role Phone JASEN FRASER Attending Unavailable [...] W/GENOon 10-17 HPV 16 Negative Normal Negative [facility] Comment on above: Performed By: #### H PV #### [facility] ([facility]) [address] [place] [address] VIR HPV 18 Negative Normal Negative [facility] Comment on above: Performed By: #### H PV #### [facility] ([facility]) [address] [place] [address] VIR OTHER HIGH RISK HPV Negative Normal Negative [facility] Comment on above: Result Comment: HPV types 31, 33, 35, 39, 45, 52, 56, 58, 59, 66, and 68 DNA were undetectable. Performed By: #### H RADHA #### [facility] ([facility]) [address] [place] [address] VIR POCT , urineon 10-01 Beta HCG ( test) Ql (U) Negative [facility] Interpretation and review of laboratory results Normal [facility] XR CSPINE OBL FLEX_EXTon XR CSPINE [...] by: KIRA MORENO Date: 2021-04-07 13:56 Normal [facility] XR LSPINE 2_3 VIEWSon 2021 XR [...] by: KIRA MORENO Date: 2021-04-07 13:58 Normal [facility] Basic Metabolic Panelon 06-0 Calcium [Mass/Vol] 8.9 mg/dL Normal 8.2-10.2 [facility] Comment on above: Performed By: #### C BC, BMP, PP #### [facility] [address] [place] [address] [place] Chloride [Moles/Vol] 102 mmol/L Normal 95-114 [facility] Comment on above: Performed By: #### C BC, BMP, PP #### [facility] [address] CO2 [Moles/Vol] 23.3 mmol/L Normal 22.0-30.0 [facility] Comment on above: Performed By: #### C BC, BMP, PP #### [facility] [address] Creatinine [Mass/Vol] 0.73 mg/dL Normal 0.44-1.03 [facility] Comment on above: Performed By: #### C BC, BMP, PP #### [facility] [address] [place] [address] [place] Creatinine Clr Calc Pharmacy 107.37 [facility] Comment on above: Result Comment: PERF ORMED BY: [place] [address] PATHOLOGIST SHELVING SUPERVISOR SOURAV TOBIAS M.D. Performed By: #### C BC, BMP, PP #### [address] Estimated GFR ( Winnie > 60 [facility] Comment on above: Result Comment: GFR estimated reference range: According to KDOQI guidelines, <60 ml/min/1.73m2 is sufficient to diagnose a patient with chronic kidney disease. Performed By: #### C BC, BMP, PP #### [facility] [address] Estimated GFR (Non- Am > 60 [facility] Comment on above: Performed By: #### C BC, BMP, PP #### [facility] [address] Glucose [Mass/Vol] 98 mg/dL Normal 70-100 [facility] Comment on above: Result Comment: [place] Glucose Reference Range is dependent on time and content of last meal. Glucose of more than 200 mg/dL in a nonstressed, ambulatory subject supports the diagnosis of Diabetes Mellitus. ADA recommended reference range Performed By: #### C ALONDRA ADHIKARI, PP #### [facility] [address] Potassium [Moles/Vol] 3.4 mmol/L Low 3.5-5.1 [facility] Comment on above: Performed By: #### C ZEYNEP, ALONDRA, PP #### [facility] [address] [place] [id number] [facility] Sodium [Moles/Vol] 136 mmol/L Normal 136-146 [facility] Comment on above: Performed By: #### C ALONDRA ADHIKARI, PP #### [facility] [address] [place] [id number] [facility] Urea nitrogen [Mass/Vol] 6 mg/dL Low 9-23 [facility] Comment on above: Performed By: #### C ZEYNEP, ALONDRA, PP #### [facility] [address] [place] [id number] [facility] COVID-19 Antigenon 1 COVID-19 Antigen Healthcare Worker?: [...] its performance Danelle Disclaimer characteristic determined by [employer] and Danelle Disclaimer validated at [facility]. This Danelle Disclaimer test has not [...] is terminated or revoked sooner. PERFORMED BY: [facility] [address] [place] [address] PATHOLOGIST SHELVING SUPERVISOR SOURAV TOBIAS M.D. Normal [facility] Comment on above: Performed By: #### C OVID 19 [facility], CEDIANEG, COVID-19 DANELLE #### [facility] [address] [place] [id number] [facility] COVID-19 FRMCon 09-05-2020 SARS-CoV-2 (COVID-19) RNA SHRAVAN+probe Ql (Unsp spec) Negative Normal Negative [facility] Comment on above: Order Comment: Healt hcare Worker?: N Result Comment: Testing for SARS-CoV-2 by RT-PCR This test was developed and its performance characteristics determined by [place] [employer]) and validated at the [facility]. This test has not been FDA [...] is terminated or revoked sooner. PERFORMED BY: [facility] [address] [place] [address] PATHOLOGIST SHELVING SUPERVISOR SOURAV TOBIAS M.D. Performed By: #### C OVID 19 [facility], CEDSHELBIENADIA, COVID-19 DANELLE #### [facility] [address] [place] [id number] [facility] Coagulation Profileon 2020 aPTT Coag (Bld) [Time] 41.8 s High 25.1-36.5 [facility] Comment on above: Result Comment: PERF ORMED BY: [facility] [address] [place] [address] PATHOLOGIST SHELVING SUPERVISOR SOURAV TOBIAS M.D. Performed By: #### C ALONDRA ADHIKARI, PP #### [address] INR Coag (PPP) [Relative time] 1.1 {INR} Normal [facility] Comment on above: Result Comment: INR [...] By: #### C ALONDRA ADHIKARI, PP #### [address] PT Coag (PPP) [Time] 11.8 s Normal 9.0-12.9 [facility] Comment on above: Performed By: #### C ALONDRA ADHIKARI, PP #### [address] Complete Blood Count Auto Di ffon 09-05-2020 Basophils (Bld) [#/Vol] 0.1 10*3/uL Normal 0.0-0.2 [facility] Comment on above: Result Comment: PERF ORMED BY: [place] [address] PATHOLOGIST SHELVING SUPERVISOR SOURAV TOBIAS M.D. Performed By: #### C ALONDRA ADHIKARI, PP #### [address] Basophils/100 WBC (Bld) 0.7 % Normal . [facility] Comment on above: Performed By: #### C ALONDRA ADHIKARI, PP #### [address] Eosinophils (Bld) [#/Vol] 0.4 10*3/uL Normal 0.0-0.45 [facility] Comment on above: Performed By: #### C ALONDRA ADHIKARI, PP #### [facility] [address] Eosinophils/100 WBC (Bld) 4.7 % Normal . [facility] Comment on above: Performed By: #### C ALONDRA ADHIKARI, PP #### [facility] [address] Erythrocyte distribution width (RBC) [Ratio] 12.6 % Normal 11.9-15.3 [facility] Comment on above: Performed By: #### C ALONDRA ADHIKARI, PP #### [address] Hematocrit (Bld) [Volume fraction] 37.2 % Normal 34.0-46.4 [facility] Comment on above: Performed By: #### C ALONDRA ADHIKARI, PP #### [address] Hemoglobin (Bld) [Mass/Vol] 13.0 g/dL Normal 11.8-15.4 [facility] Comment on above: Performed By: #### C ALONDRA ADHIKARI, PP #### [address] Lymphocytes (Bld) [#/Vol] 2.5 10*3/uL Normal 1.00-4.8 [facility] Comment on above: Performed By: #### C ALONDRA ADHIKARI, PP #### [address] Lymphocytes/100 WBC (Bld) 32.3 % Normal . [facility] Comment on above: Performed By: #### C ALONDRA ADHIKARI, PP #### [address] MCH (RBC) [Entitic mass] 29.7 pg Normal 24.7-34.3 [facility] Comment on above: Performed By: #### C ALONDRA ADHIKARI, PP #### [address] MCV (RBC) [Entitic vol] 85.1 fL Normal 80-100 [facility] Comment on above: Performed By: #### C BC, BMP, PP #### [facility] [address] Mean Corpuscular HGB Conc 34.9 g/dL Normal 32.0-35.0 [facility] Comment on above: Performed By: #### C ZEYNEP BMP, PP #### [facility] [address] [place] [address] [place] Monocytes (Bld) [#/Vol] 0.6 10*3/uL Normal 0.0-0.8 [facility] Comment on above: Performed By: #### C ZEYNEP, BMP, PP #### [facility] [address] [place] [address] [place] Monocytes/100 WBC (Bld) 8.3 % Normal . [facility] Comment on above: Performed By: #### C ZEYNEP BMP, PP #### [facility] [address] [place] [address] [place] Neutrophils (Bld) [#/Vol] 4.2 10*3/uL Normal 1.8-7.7 [facility] Comment on above: Performed By: #### C ZEYNEP BMP, PP #### [facility] [address] [place] [address] [place] Neutrophils/100 WBC (Bld) 54.0 % Normal . [facility] Comment on above: Performed By: #### C ZEYNEP BMP, PP #### [facility] [address] [place] [address] [place] Nucleated RBC/100 WBC (Bld) [Ratio] 0.4 % Normal 0-0.5 [facility] Comment on above: Performed By: #### C ZEYNEP, BMP, PP #### [facility] [address] [place] [address] [place] Platelet mean volume (Bld) [Entitic vol] 9.0 fL Normal 6.3-10.7 [facility] Comment on above: Performed By: #### C BC, BMP, PP #### [facility] [address] [place] [address] [place] Platelets (Bld) [#/Vol] 195 10*3/uL Normal 150-450 [facility] Comment on above: Performed By: #### C BC, BMP, PP #### [facility] [address] [place] [address] [place] RBC (Bld) [#/Vol] 4.38 10*6/uL Normal 3.60-5.00 [facility] Comment on above: Performed By: #### C BC, BMP, PP #### [facility] [address] [place] [address] [place] WBC (Bld) [#/Vol] 7.8 10*3/uL Normal 4.5-11.0 [facility] Comment on above: Performed By: #### C BC, BMP, PP #### [place] [address] [place] Dipstick and Microscopicon 0 09-05-2020 Appearance (U) Clear Normal Clear [facility] Comment on above: Order Comment: Name Collection Type:: Clean-Voided Midstream Performed By: #### U HCG, ADDONUAPLUS #### [address] Bacteria,Urine None Seen Normal None Seen [facility] Comment on above: Order Comment: Name Collection Type:: Clean-Voided Midstream Performed By: #### U HCG, ADDONUAPLUS #### [address] Bilirubin,Urine Negative Normal Negative [facility] Comment on above: Order Comment: Name Collection Type:: Clean-Voided Midstream Performed By: #### U HCG, ADDONUAPLUS #### [address] Color (U) Yellow Normal Yellow [facility] Comment on above: Order Comment: Name Collection Type:: Clean-Voided Midstream Performed By: #### U HCG, ADDONUAPLUS #### [address] Glucose Ql (U) Normal Normal Normal [facility] Comment on above: Order Comment: Name Collection Type:: Clean-Voided Midstream Performed By: #### U HCG, ADDONUAPLUS #### [address] [place] [address] [place] Hyaline Casts,Urine 0-8 Normal 0-8 [facility] Comment on above: Order Comment: Name Collection Type:: Clean-Voided Midstream Performed By: #### U HCG, ADDONUAPLUS #### [address] Ketones Ql (U) Negative Normal Negative [facility] Comment on above: Order Comment: Name Collection Type:: Clean-Voided Midstream Performed By: #### U HCG, ADDONUAPLUS #### [address] Leukocyte esterase Test strip Ql (U) Negative Normal Negative [facility] Comment on above: Order Comment: Name Collection Type:: Clean-Voided Midstream Performed By: #### U HCG, ADDONUAPLUS #### [address] Nitrite,Urine Negative Normal Negative [facility] Comment on above: Order Comment: Name Collection Type:: Clean-Voided Midstream Performed By: #### U HCG, ADDONUAPLUS #### [address] Occult Blood,Urine 3+ High Negative [facility] Comment on above: Order Comment: Name Collection Type:: Clean-Voided Midstream Performed By: #### U HCG, ADDONUAPLUS #### [address] pH (U) [pH] Normal 5.0-9.0 [facility] Comment on above: Order Comment: Name Collection Type:: Clean-Voided Midstream Performed By: #### U HCG, ADDONUAPLUS #### [address] Protein,Urine Negative Normal Negative [facility] Comment on above: Order Comment: Name Collection Type:: Clean-Voided Midstream Performed By: #### U HCG, ADDONUAPLUS #### [facility] [address] [place] [address] RBC LM.HPF (Urine sed) [#/Area] 0 /[HPF] Normal 0-4 [facility] Comment on above: Order Comment: Name Collection Type:: Clean-Voided Midstream Performed By: #### U HCG, ADDONUAPLUS #### [address] Renal Epithelial Cells,Urine 0-1 Normal 0-1 [facility] Comment on above: Order Comment: Name Collection Type:: Clean-Voided Midstream Performed By: #### U HCG, ADDONUAPLUS #### [address] Specificy [place],Urine 1.008 Normal 1.001-1.030 [facility] Comment on above: Order Comment: Name Collection Type:: Clean-Voided Midstream Performed By: #### U HCG, ADDONUAPLUS #### [address] Squamous Epithelial Cell,Urine 1-2 Normal 0-2 [facility] Comment on above: Order Comment: Name Collection Type:: Clean-Voided Midstream Performed By: #### U HCG, ADDONUAPLUS #### [address] Urobilinogen,Urine Normal Normal Normal [facility] Comment on above: Order Comment: Name Collection Type:: Clean-Voided Midstream Performed By: #### U HCG, ADDONUAPLUS #### [place] [address] [place] WBC LM.HPF (Urine sed) [#/Area] 0 /[HPF] Normal 0-4 [facility] Comment on above: Order Comment: Name Collection Type:: Clean-Voided Midstream Performed By: #### U HCG, ADDONUAPLUS #### [address] ECG 12 lead ECGon 09-05-2020 ECG 12 lead ECG [facility] [place] [address] [place] [address] Electrocardiograph Report Signed Patient: Francheska Diego MR#: [id number] : 1985 Acct:[id number] Age/Sex: 35 / F ADM Date: 09/05/20 Loc: ER Room: Type: [facility] ER Attending Dr: Ordering Provider: Gaston Menjivar [...] DO 09/05/20 0320 Signed By: 09/06/20 1147 [facility] HCG,Quantitativeon HCG,Quantitative 14.26 m[iU]/mL [facility] Comment on above: Result Comment: Appr oximate Approximate hCG Gestational Age Range (mIU/ml) (weeks) 0.2-1 5-50 1-2 50-500 2-3 100-5,000 3-4 500-10,000 4-5 1,000-50,000 5-6 10,000-100,000 6-8 15,000-200,000 8-12 10,000-100,000 PERFORMED BY: [address] [place] [address] PATHOLOGIST SHELVING SUPERVISOR SOURAV TOBIAS M.D. Performed By: #### H CGQNT #### [place] [id number] [facility] HCG,Urineon 09-05-2020 Beta HCG ( test) Ql (U) Negative [facility] Comment on above: Order Comment: Name Collection Type:: Clean-Voided Midstream Result Comment: PERF ORMED BY: [address] [place] [address] PATHOLOGIST SHELVING SUPERVISOR SOURAV TOBIAS M.D. Performed By: #### U HCG, ADDONUAPLUS #### [facility] [address] [place] [address] [place] Danelle Ag Negativeon 09-06-19 Danelle Ag Negative Negative Normal Negative [facility] Comment on above: Result Comment: This is a duplicate Danelle SARS Antigen (ANU) result to be used for statistical tracking purpose only. PERFORMED BY: [place] [address] PATHOLOGIST SHELVING SUPERVISOR SOURAV TOBIAS M.D. Performed By: #### C OVID 19 [facility], SOFIANEG, COVID-19 DANELLE #### [address] Type and Screenon 09-05-2020 ABO and Rh group Nom (Bld) Blood group O Rh(D) positive Normal [facility] Comment on above: Result Comment: PERF ORMED BY: [place] [address] PATHOLOGIST SHELVING SUPERVISOR SOURAV TOBIAS M.D. US transvaginalon 09-05-2020 US transvaginal [facility] [address] [place] [address] Ultrasound Report Signed Patient: Francheska Diego MR#: [id number] : 1985 Acct:[id number] Age/Sex: 35 / F ADM Date: 09/05/20 Loc: ER Room: Type: [facility] ER Attending Dr: Ordering Provider: Gaston Menjivar Jr, MD Date of Service: 09/05/20 US/US pelvic complete: heavy bleeding recent elective Ab, r/o retained POC ([id number]) US/US transvaginal: . Copies to: Gaston Menjivar [...] Christianson Jr., M.D.09/05/2020 9:19 AM Dictation Location: [place] [address] Tech: Lulu Willoughby Transcribed By: MELITON 09/05/20918 Dictated By: Warren Christianson Jr, MD 09/05/20909 Signed By: 09/05/20918 [facility] PREG QUANT HCGon 07-28-2020 HCG QUANT 35009 mIU/mL Normal [facility] Comment on above: Result Comment: Veri fied by dilution. Performed By: #### P REGQNT #### [facility] [address] [place], [place] [id number] John Zamorano HCG RANGE SEE BELOW Normal [facility] Comment on above: Result Comment: 5-50 0-1 WEEK 40-300 1-2 WEEKS 100-1,000 2-3 WEEKS 500-6,000 3-4 WEEKS 5,000-200,000 1-2 MONTHS 10,000-100,000 2-3 MONTHS 3,000-50,000 2ND TRIMESTER 1,000-50,000 3RD TRIMESTER Performed By: #### P REGQNT #### [facility] [address] [place], [place] [address] John Zamorano Vital Signs Date Time Vital Sign Value Performing Clinician Christiano charles 10-17-2024 11:03-0400 Body height 166.4 cm Frances Zuniga TABLE ASSEMBLER METAL-RESEARCH STAFF MEMBER Work Phone: [employer] 10-17-2024 11:03-0400 Body mass index (BMI) [Ratio] 29.56 kg/m2 Frances Zuniga TABLE ASSEMBLER METAL-RESEARCH STAFF MEMBER Work Phone: [facility] [employer] [facility] 10-17-2024 11:03-0400 Body weight 81.83 kg Frances Ricardozer TABLE ASSEMBLER METAL-RESEARCH STAFF MEMBER Work Phone: [facility] [employer] [facility] 10-17-2024 11:03-0400 Diastolic blood pressure 68 mm[Hg] Frances Krkennzer TABLE ASSEMBLER METAL-RESEARCH STAFF MEMBER Work Phone: [facility] [employer] [facility] 10-17-2024 11:03-0400 Systolic blood pressure 102 mm[Hg] Frances Ricardozer TABLE ASSEMBLER METAL-RESEARCH STAFF MEMBER Work Phone: [facility] Encounters Encounter Date Encounter Type Care Provider Facility Start: 10-21-2024 End: 10-21-2024 Orders Only Frances Zuniga TABLE ASSEMBLER METAL-RESEARCH STAFF MEMBER Work Phone: [facility]stetrics/Gynecology Comment on above: Encounter for initia l prescription of contraceptive pills (Primary Dx) Start: 10-18-2024 End: 10-18-2024 Encounter for gynecological examination (general) (routine) without abnormal findings Sharee Copeland RN [facility] [employer] [facility] Start: 10-18-2024 End: 10-18-2024 Orders Only Sharee Copeland RN [facility]necology Comment on above: Pap smear, as part o f routine gynecological examination (Primary Dx) Start: 10-17-2024 End: 10-17-2024 Initial preventive medicine new pt age 18-39yrs Frances Zuniga TABLE ASSEMBLER METAL-RESEARCH STAFF MEMBER Work Phone: [facility]necology Comment on above: Well woman exam with routine gynecological exam (Primary Dx); Encounter for screening mammogram for malignant neoplasm of breast; Encounter for initial prescription of contraceptive pills; Menorrhagia with regular cycle; Standardized adult depression screening tool completed; Screening for cervical cancer; Pap smear, as part of routine gynecological examination Start: 10-17-2024 End: 10-17-2024 Patient encounter procedure Frances Zuniga TABLE ASSEMBLER METAL-RESEARCH STAFF MEMBER Work Phone: [facility] Start: 10-17-2024 End: 10-17-2024 ambulatory FRANCES ZUNIGA [facility] Start: 10-17-2024 End: 10-17-2024 Encounter for gynecological examination (general) (routine) without abnormal findings Frances Zuniga TABLE ASSEMBLER METAL-RESEARCH STAFF MEMBER Work Phone: [facility] Start: 04-07-2021 End: 04-08-[address] JANETH HERNÁNDEZ Facility:[facility] Start: 07-28-2020 End: 07-29-2020 ambulatory JASEN GARNETTYANNIYAMILKA Facility:[facility] Procedures Date Procedure Procedure Detail Performing Clinician Start: 10-17-2024 Urine test visual color cmprsn meths Frances Zuniga TABLE ASSEMBLER [employer]EARCH STAFF MEMBER Work Phone: Start: 10-17-2024 Adult depression scr eening assessment Frances Zuniga TABLE ASSEMBLER [facility] Work Phone: Start: 10-17-2024 Microscopic observat ion [Identifier] in Cervix by Cyto stain Frances Zuniga TABLE ASSEMBLER [employer]AL[employer]EARCH STAFF MEMBER Work Phone: Start: 09-05-2020 Antibody screen Comment on above: Result Comment: PERF ORMED BY: [address] [place] [address] PATHOLOGIST SHELVING SUPERVISOR SOURAV TOBIAS M.D. Plan of Treatment Date Care Activity Detail Author Start: 10-18-2027 Screening for malign ant neoplasm of cervix Pap Smear [facility] Start: 10-17-2025 Adult BMI Follow Up Plan Adult BMI Follow Up Plan [facility] Start: 10-17-2025 Adult BMI Screening Adult BMI Screen ing [facility] Start: 10-17-2025 Depression Screening Depression Scre ening [facility] Start: 10-17-2025 Tobacco Screening Tobacco Screening [facility] Start: 12-02-2024 Influenza vaccination Influenza Vacc ine [facility] Start: 10-17-2024 End: 10-17-2025 US Pelvis transabdominal and transvaginal Ultrasound pelvic with transvaginal Imaging Routine Menorrhagia with regular cycle Expected: 10/17/2024, Expires: 10/17/2025 [facility] Comment on above: Expected: 10/17/2024 , Expires: 10/17/2025 Start: 2006 Screening for malign ant neoplasm of cervix [facility]ear [facility] Start: 2004 DTaP,Tdap and Td Vac cines (1 - Tdap) DTaP,Tdap and Td Vaccines (1 - Tdap) [facility] Start: 1985 Tobacco Counseling Tobacco Counselin g [facility] DBT Breast - bilater al screening Mammography screening bilateral with CAD Imaging Routine Encounter for screening mammogram for malignant neoplasm of breast Ordered: 10/17/2024 [employer] Work Phone: Comment on above: Ordered: 10/17/2024 End: 10-18-2025 High Risk HPV w/Barb High Risk HPV w/Barb Lab Routine Pap smear, as part of routine gynecological examination 1 Occurrences starting 10/18/2024 until 10/18/2025 [employer] Work Phone: Comment on above: 1 Occurrences starti ng 10/18/2024 until 10/18/2025 Thin Prep Pap Test Thin Prep Pap Test Pathology and Cytology Routine Pap smear, as part of routine gynecological examination 10/17/2024 12:25 PM EDT [employer] Payers Date Payer Category Payer [facility] Care - Other [facility] [id number] 2024 Unknown [id number] 1985 Unknown [id number] 1985 Unknown [id number] 1985 Unknown [id number] 1959 Unknown [id number] Social History Date Type Detail Facility Start: 10-17-2024 [facility] History of tobacco use Cigarette Smoker [facility] Start: 10-17-2024 Tobacco use and exposure Smokeless tobacco non-user [facility] Start: 10-17-2024 Alcoholic beverage intake Ex-drinker (finding) [facility] Start: 05-14-2020 End: 10-17-2024 History of Social function [facility] Start: 05-14-2020 End: 10-17-2024 Tobacco use panel [facility] Adolescent depressio n screening assessment 1 [facility] Start: 1985 Sex assigned at Not on file [facility] Start: 11-06-2014 Sex Female (finding) [facility] Clinical Notes 10-17-2024 to 10-21-2024 Telephone Encounter - Argenis Brooks - 10/21/2024 10:09 AM EDTTelephone Encounter - Frances Zuniga APRN-NHUNG - 10/21/2024 10:09 AM EDTTelephone Encounter - Argenis Brooks - 10/21/2024 10:09 AM EDT Note Date & Type Note Facility 10-21-2024 Miscellaneous Notes Formattin g of this note might be different from the original. Pt states she went to [facility], but her out of pocket cost was going to be over $100. Pt is wondering if there is a different [facility] RX that can be sent. Pt states she is not against doing Depo again if there isn't a different RX. Please advise. Thank you Alternate medication sent. Advised Pt new RX was sent. documented in this encounter [facility] 10-21-2024 Telephone encount er Note Pt states she went to [facility], but her out of pocket cost was going to be over $100. Pt is wondering if there is a different [facility] RX that can be sent. Pt states she is not against doing Depo again if there isn't a different RX. Please advise. Thank you [facility] 10-21-2024 Telephone encount er Note Alternate medication sent. [facility] 10-21-2024 Telephone encount er Note Advised Pt new RX was sent. [facility] 10-18-2024 History of Presen t illness Narrative HPV Order placed. - Sharee Copeland RN 10/18/24 1:47 PM documented in this encounter [facility] 10-17-2024 History of Presen t illness Narrative Annual Well Woman Visit 10/17/2024 Deborah Diego is a pleasant 39 y.o. 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 Follow up as needed. Await pap. Discussed ASCCP screening guidelines. Discussed taking a multivitamin. Discussed Calcium and Vitamin D for prevention of osteoporosis. Discussed recommendations for HPV vaccine between 9-45 yo. Can be received at [facility] or the Identified department. Discussed need for yearly mammogram after 40 yo. Encouraged smoking cessation. Discussed colon cancer screening recommendations to begin at 45 yo, patient to discuss with PCP. All questions answered. MICHAELA Gupta APRN-[place] Kerr 10/17/24 1210 documented in this encounter [facility] Evaluation note Diagnosis Well woman exam [...] of the cervix [facility] Diagnosis Pap smear, as part of routine gynecological examination- Primary Screening for malignant neoplasm of the cervix [facility]* Diagnosis Encounter for initial prescription of contraceptive pills- Primary [facility]* Attachments The following attachments cannot be sent through Care Everywhere. * Calcium and vitamin D for bone health (Namibian) * Drospirenone, ADULT (Namibian) * Quitting smoking for adults ([place]amibian) documented [facility]ructionsNot on file [facility] SystemInstructionsNot on file [facility] Summary Purpose Family History No Family History Records FoundNo Family History Records FoundNo Family History Records Found Advance Directives No Advanced Directives Records FoundNo Advanced Directives Records FoundNo Advanced Directives Records Found Additional Source Comments INFORMATION SOURCE (unrecogn ized section and content) DATE CREATED AUTHOR 04/15/2021 [facility] DATE CREATED AUTHOR AUTHOR'S ORGANIZ ATION 04/22/2021 [facility] DATE CREATED AUTHOR AUTHOR'S ORGANIZ ATION 10/23/[address] Reason for Visit (unrecogniz ed section and content) Reason Comments Gynecologic Exam Care Teams (unrecognized sec tion and content) Pbx Repairer Relationship Specialty Start Date End Date No Pcp, [place] [address] PCP - General Family Medicine 10/07/16 Pbx Repairer Relationship Specialty Start Date End Date No Pcp, [place] [address] PCP - General Family Medicine 10/07/16 FOR [...] BE BASED ON THE PRIMARY CLINICAL RECORDS. [facility]. provides no warranty or guarantee of the accuracy or completeness of information in this document.
[2024-12-03 07:20] LABS: Hematocrit 39.1 % (36.0-48.0); Hemoglobin 13.2 g/dL (12.0-16.0); Immature Granulocytes Abs Auto 0.02 10^3/uL (0.00-0.03); Immature Granulocytes Pct Auto 0.2 % (0.0-0.5); Lymphocytes Absolute Auto 2.5 10^3/uL (1.2-3.8); Mean Corpuscular HGB Conc 33.8 g/dL (29.9-35.2); Mean Corpuscular Hemoglobin 29.1 pg (26.7-34.0); Mean Corpuscular Volume 86.1 fL (81.0-99.0); Platelet Count 233 10^3/uL (150-450); Red Blood Count 4.54 10^6/uL (4.20-5.40); White Blood Count 10.4 10^3/uL (4.0-11.0)
[2024-12-03] MEDS: CEFAZOLIN SODIUM 2 GM/50 ML D5W PREMIX IV (08:47)
--- NOTE | 2024-12-03 08:59 | PC.NURSE ---
Patient consented by Dr. Bennett for a nerve block, Patient prepped with placing on 2 lpm O2 via nasal cannula and monitors attached. Time out performed per protocol at 0830 a.m. Patient medicated by Dr. Bennett. Bedside ultrasound used to locate site. Block started at 0839 and was completed at 0842. Patient tolerated well. Patient voiced no complaints or concerns at this time. Patient was then taken to the surgical suite with Cyndi Lema RN.
[2024-12-03] MEDS: BUPIVACAINE HCL 0.5% PF 50 MG/10 ML VIAL 20 ML INJ (09:21)
--- NOTE | 2024-12-03 10:33 | PM.ORONB ---
Brief Operative Note Date of procedure: 12/03/24 Pre-op diagnosis general: Right hallux valgus and 5th hammertoe Post-op diagnosis: same as pre-op Procedure: Procedure performed: Right first metatarsal phalangeal joint fusion, PIPJ arthroplasty of right fifth toe Indications for procedure: Aria is a healthy 39-year-old female whose had worsening pain and deformity of her right great toe and right fifth toe. She was initially treated with nonsurgical measures which included ibuprofen and Aleve, toe spacers and shoe and activity modification which did not provide much benefit. She presented to me for second opinion and we discussed the potential risks and benefits of surgical versus nonsurgical treatment options and the patient wished to undergo the above procedures Intraoperative findings: Hallux valgus deformity of right great toe with mild cartilage degeneration of both the first metatarsal head and proximal phalanx base. Medial eminence of the first metatarsal was prominent. Adductovarus contracture of the fifth toe. Bone quality was within normal limits Procedure in detail: Patient was identified in pre op and consent was reviewed. Correct side and site were identified and marked. Regional anesthesia was provided by the anesthesia team. Pre-op antibiotics were started. Patient was brought to OR suite and place on table in a supine position. General anesthesia was administered. Calf tourniquet applied. Operative extremity was prepped and draped in usual sterile fashion. Formal time-out was performed and the foot/ankle were exsanguinated and tourniquet inflated. Incision created over dorsal aspect of the 1st MPJ. Bleeders coagulated. EHL protected throughout the procedure. Capsulotomy performed and McGlammry elevator inserted into 1st MPJ. Guide Pin place in 1st metatarsal head. Conical reamers used on 1st metatarsal head to remove cartilage and subchondral bone. Guide pin removed. Conical reamers used on proximal phalanx in a similar manner. 2.0 mm drill used to on each side of the joint. The site was irrigated. Multiple K wires were used to pin the great toe in a rectus and reduced position. Position was checked under fluoroscopy as well as on the table and a 3.5 mm cannulated screw was placed accordingly from the proximal phalanx base across the first metatarsal phalangeal joint and into the lateral cortex of the first metatarsal. Temporary fixation was removed. A 3.[address] over the fusion site and temporarily fixed. Then carton filler holes were drilled for locking 3.5 mm screws which were measured and placed according to the manufactor's standard directions. Again position was checked under fluoroscopy as well as on the table. Temporary fixation was removed and additional screws were placed. An elliptical incision was created over the PIPJ of 5th toe. Extensor tendon was incised and reflected to expose the PIPJ. Periarticular ligaments were released. Sagittal saw was use to excised the head of proximal phalanx. The site was irrigated with copious amounts of sterile saline. The extensor tendon was repaired with absorbable stitch and skin was closed with non-absorbable suture. The surgical site over the 1st ray was irrigated with copious amounts of sterile saline. Absorbable deep sutures were used to close fascia. The tourniquet was dropped and a prompt hyperemic response was noted. Skin was then closed with nonabsorbable suture. A dry sterile dressing consisting of Xeroform on the incisions followed by 4 x 4 gauze, ABDs, and Kerlix were applied. Multiple layers of cast padding were then applied to ensure all bony prominences were well-padded. A plaster posterior splint was then applied which was held in place by Omari wraps. Capillary refill time to all digits was evaluated and had appropriate response. Postoperative plan: Discharge home under family's care Nonweightbearing right foot Ice and elevate Prescriptions were sent to patient's pharmacy using my office EMR Implants: Medline 3.5 mm 1st MPJ plate and 3.5 mm cannulated screw Anesthesia: regional and General-LMA Surgeon: Amaury Barnes Bus Assistant: Ashley Lazcano Estimated blood loss (mL): 10 Tourniquet time (min): 79 Pathology: none sent Condition: stable Disposition: PACU
--- NOTE | 2024-12-03 11:35 | XR_ITS ---
The [address] [address] Patient Name: RIKY ARREAGA MRN: [id number] date: 1985 Sex: F Assigned Patient Location: [facility] Current Patient Location: [facility] Accession/Order Number: [id number] Exam Date: 12/03/2024 11:30 Report Date: 12/03/2024 12:18 At the request of: FERNANDO METZ DPIvory Procedure: XR foot RT min 3V RIGHT FOOT - 3 views CLINICAL DATA: Follow-up after fixation of hallux valgus deformity and fifth toe hammertoe deformity COMPARISON: 10/15/2024 AP, lateral and oblique views were obtained with a splint that slightly obscures fine bone detail. There is interval bunionectomy with a volar plate and multiple screws at the first metatarsal phalangeal joint. There is also suspected interval resection at the head of the proximal phalanx of the fifth toe. There is no acute fracture or dislocation. There are no significant soft tissue abnormalities. XR/XR foot RT min 3V IMPRESSION: SPLINT ARTIFACT. POSTOPERATIVE CHANGES AT THE FIRST AND FIFTH TOES. Impression dictated by: Lona Mendez M.D. 12/03/2024 12:18 PM Dictation Location: [place] [address] Electronically authenticated by: [id number] Y Date: 12/03/2024 12:18
== END 2024-12-03 12:15 | disposition home or self-care (01) ==
PROVIDERS: Visit Provider Podiatrist Foot & Ankle Surgery
PROC: (CPT 1480; principal; 2024-12-03 08:30)
DX: M20.11 Hallux valgus (acquired), right foot (principal); M20.41 Other hammer toe(s) (acquired), right foot; M79.671 Pain in right foot; J45.909 Unspecified asthma, uncomplicated; F17.290 Nicotine dependence, other tobacco product, uncomplicated
CPT/HCPCS: 28285; 28750; 36415; 64445; 73630; 76000; 82948; 84703; 85025; C1713; J0665; J0690; J1100; J1885; J2250; J2405; J2704; J2795; J3010

== ENCOUNTER 2024-12-24 12:05 | Outpatient (OUT) | payer BC, SELFPAY ==
--- OUTSIDE RECORDS SUMMARY | 2023-03-05 20:00 | XMS_ITS | Continuity of Care Document ---
Author Organization [facility] Address [address] [place] [address] Phone Care Team Providers Care Diagrammer And Seamer Name Role Phone LamonthilarioYesi Unavailable Unavailable Allergies, [...] - Active Procedures Procedure Date Acute Detox Waste Duster Acute Detox Waste Duster Acute Detox Waste Duster Acute Detox Waste Duster Acute Detox Waste Duster Acute Detox Waste Duster DRUG TEST PRSMV DIR OPT OBS URINE TEST ROUTINE VENIPUNCTURE Acute Detox Waste Duster Acute Detox Waste Duster Acute Detox Waste Duster Acute Detox Waste Duster DRUG TEST PRSMV DIR OPT OBS Acute Detox Waste Duster PREV VISIT, EST, AGE 18-39 EST FP [...] Diagnoses Date Provider Providers Copied on Encounter [facility], [address] [place] [address], [id number] , tel: [phone] [facility] Det[facility] No Information Dec-0 4-202 3 Klidas Yesi. [address] [place] [address], [id number] , . tel: [phone] [facility], [address] [place] [address], [id number] , tel: [phone] [facility] No Information Dec-0 3-202 3 Klidas Yesi. [address] [place] [address], [id number] , . tel: [phone] [facility], [address] [place] [address], [id number] , tel: [phone] [facility] No Information Dec-0 2-202 3 Klidas Yesi. [address] [place] [address], [id number] , . tel: [phone] [facility], [address] [place] [address], [id number] , tel: [phone] [facility] No Information Dec-0 1-202 3 Obeydonte Feldman. [address] [place], [address], [place]. tel: [phone] [facility], [address] [place], [place], [id number] , [place] tel: [phone] [facility] No Information 0 3 Neil Key. [address] [place], [place], [id number] , [place]. tel: [phone] [facility], [address] [place], [id number] , [place] tel: [phone] [facility] No Information 3 Neil Key. [address] [place], [place], [id number] , [place]. tel: [phone] [facility], [address] [place], [place], [id number] , [place] tel: [phone] [facility] Opioid dependence with withdrawalEncounter for test, result negative 0 Pavlock DO Max. [address] [place], [place], [id number] , [place]. tel: [phone] [facility], [address] [place], [place], [id number] , [place] tel: [phone] [facility] Opioid dependence with withdrawalEncounter for test, result negative 0 Pavlock DO Max. [address] [place], [place], [id number] , [place]. tel: [phone] [facility], [address] [place], [place], [id number] , [place] tel: [phone] [facility] fentanyl dependence (chief complaint) Opioid dependence with withdrawal 0 Jai Childress. [address] [place], [place], [id number] , [place]. tel: [phone] [facility], [address] [place], [place], [id number] , [place] tel: [phone] [facility] Opioid dependence with withdrawal 0 Pavlock DO Max. [address] [place], [place], [id number] , [place]. tel: [phone] [facility], [address] [place], [place], [id number] , [place] tel: [phone] [facility] Opioid dependence with withdrawal 0 Pavlock DO Max. [address] [place], [place], [id number] , [place]. tel: [phone] [facility], [address] [place], [place], [id number] , [place] tel: [phone] [facility] Opioid dependence with withdrawalEncounter for test, result negative 0 Pavlock DO Max. [address] [place], [place], [id number] , [place]. tel: [phone] [facility], [address] [place], [place], [id number] , [place] tel: [phone] [facility] lab result (chief complaint) No Information 4 [facility] Abigail. [address] [place], [place], [id number] , [place]. tel: [phone] PREV VISIT, [facility], AGE 18-39 [facility], [address] [place], [place], [id number] , [place] tel: [phone] [facility] annual visit (chief complaint) Gynecological ExaminationContact with or exposure to venereal diseases 4 [facility] Abigail. [address] [place], [place], [id number] , [place]. tel: [phone] OFFICE/OUTPA TIENT VISIT, [facility], [address] [place], [place], [id number] , [place] tel: [phone] [facility] No Information 2 Lamp Brenda. [address] [place], [place], [id number] , [place]. tel: [phone] OFFICE/OUTPA TIENT VISIT, [facility], [address] [place], [place], [id number] , [place] tel: [phone] [facility] Routine PN Visit (chief complaint) Supervision of other normal 2 Jesus Gutierrez. [address] [place], [place], [id number] , [place]. tel: [phone] OFFICE/OUTPA TIENT VISIT, [facility], [address] [place], [place], [id number] , [place] tel: [phone] [facility] No Information 2 Jesus Gutierrez. [address] [place] [address], [id number] , [place]. tel: [phone] [facility], [address] [place] [address], [id number] , [place] tel: [phone] [facility] No Information 2 Visci DO Warren. [address] [place], [place], [id number] , [place]. tel: [phone] OFFICE/OUTPA TIENT VISIT, [facility], [address] [place] [address], [id number] , [place] tel: [phone] [facility] No Information 2 Jesus Gutierrez. [address] [place] [address], [id number] , [place]. tel: [phone] [facility], [address] [place] [address], [id number] , [place] tel: [phone] [facility] Screening examination for pulmonary tuberculosis 2 Visci DO Warren. [address] [place] [address], [id number] , [place]. tel: [phone] Family History Family Member Type Diagnosis Age [...] party ID Arsenio jackson(s) [employer] Fund[employer] [id number] Social History Type Description Quantity Date Captured Comments Sex Female Smoking Status No Information Sexual Orientation Straight or heterosexual Gender Identity Female Chief Complaint And Reason For Visit No Information Reason For Referral Reason For Referral No Information Plan Of Treatment Date Type Action Status Goal H&P. Due on due Goal RLP. Due on due Goal Influenza vaccine. Due on due Goal Depression screening. Due on due Goal Tdap. Due on due Goal REFRIGERATOR REPAIRMAN exam. Due on due Goal Breast exam. Due on due Goal RLP. Due on due Goal REFRIGERATOR REPAIRMAN exam. Due on due Goal Tdap. Due on due Goal Depression screening. Due on due Goal Breast exam. Due on due Goal Influenza vaccine. Due on due Goal H&P. Due on due Goal Depression screening. Due on due Goal Breast exam. Due on due Goal H&P. Due on due Goal RLP. Due on due Goal REFRIGERATOR REPAIRMAN exam. Due on due Goal Influenza vaccine. Due on due Goal Tdap. Due on due Goal H&P. Due on due Goal Breast exam. Due on due Goal RLP. Due on due Goal REFRIGERATOR REPAIRMAN exam. Due on due Goal Tdap. Due on due Goal Influenza vaccine. Due on due Goal Depression screening. Due on due Goal RLP. Due on due Goal REFRIGERATOR REPAIRMAN exam. Due on due Goal Depression screening. Due on due Goal H&P. Due on due Goal Influenza vaccine. Due on due Goal Tdap. Due on due Goal Breast exam. Due on due Goal RLP. Due on due Goal H&P. Due on due Goal Breast exam. Due on due Goal REFRIGERATOR REPAIRMAN exam. Due on due Goal Depression screening. Due on due Goal Tdap. Due on due Goal PPD (TST). Due on 2 due Goal Influenza vaccine. Due on due Goal Tobacco cessation counseling [...]
--- OUTSIDE RECORDS SUMMARY | 2024-12-16 07:00 | XMS_ITS ---
Author Organization [employer] [facility] Address [address] [address], [place] [address] Care Team Providers Care Audience Coordinator Name Role Phone Amaury Barnes [phone] Allergies No Known Allergies REASON FOR VISIT Post Op Medications Medication SIG (Take, Route, Frequency, Duration) Notes Start Date End Date Status Percocet 5-325 MG Tablet 1 tablet as needed Orally every 6 hours; Duration: 7 days As needed 12/16/2024 12/23/2024 Active Aspirin 325 MG Tablet 1 tablet Orally tw ice a day; Duration: 30 days 12/03/2024 Active Ondansetron 4 MG Tablet Disintegrating 1 tablet on the tongue and allow to dissolve Orally every 6 hours; Duration: 5 days As needed for nausea 12/03/2024 Active Social History Section Notes: Patient is a current smoker. No alcohol use. Encounters Encounter Location Date Provider Diagnosis [employer] [facility] [address] [address], [place] [address] 12/16/2024 Amaury Barnes Hallux valgus (acquired), right foot M20.11 and Hammertoe of right foot M20.41 Assessments Encounter Date Diagnosis (ICD Code) Assessment Notes Treatment Notes Treatment Clinical Notes Section Notes 12/16/2024 Hallux valgus (acquired), right foot (ICD-10 - M20.11) Patient may transition to CAM boot partial protected WB to the right heel. She will need the CAM boot for stability and pain relief while she continues to heal and recover from foot surgery. She will need the CAM boot for approximately 3 months or until there is x-ray evidence of osseous fusion. She will obtain an xray prior to next appointment in 2 weeks. I did provide a refill for percocet which she is to begin decreasing and take only when ibuprofen/tylenol do not cover pain. She should take no more than 3,000 mg of tylenol in a 24 hr period. 12/16/2024 Hammertoe of right foot (ICD-10 - M20.41) Plan Of Treatment Medication Medication Name Sig Start Date Stop Date Notes Percocet 5-325 MG Tablet 1 tablet as nee ded Orally every 6 hours; Duration: 7 days 12/16/2024 12/23/2024 Treatment Notes Assessment Notes Hallux valgus (acquired), right foot Patient may transition to CAM boot partial protected WB to the right heel. She will need the CAM boot for stability and pain relief while she continues to heal and recover from foot surgery. She will need the CAM boot for approximately 3 months or until there is x-ray evidence of osseous fusion. She will obtain an xray prior to next appointment in 2 weeks. I did provide a refill for percocet which she is to begin decreasing and take only when ibuprofen/tylenol do not cover pain. She should take no more than 3,000 mg of tylenol in a 24 hr period. Next Appt Details Follow Up: 2 Weeks, Reason: Provider Name:Amaury santos, 12/30/2024 11:30:00 AM, [address] [facility], [address], [address], [place], [address], History and Physical Notes * HPI (History of Present Illness) Category Sub-Category Detail Notes Category Not es Foot Елена is pres ents for her first post op visit. She is s/p 1st MPJ fusionand correction of 5th hammertoe. She is on ASA daily and taking 3-4 percocet a day. She has been NWB in a splint. She denies calf pain and SOB Examination Category Sub-Category Detail Notes Category Not es General Examination Skin: Incisions well coapted. No SOI. Vascular: No calf pain on squeeze. Pedal pulses palpable MSK: No pain out of proportion. Able to wiggle toes without pain Progress Notes * Francheska DIEGODOB: [birth year] (39 yo F)Acc No.[id number]:12/16/2024 Progress Notes Patient: Álvaro hernández Francheska Provider: Sherine Barnes DPM :1985 A ge:39 Y S ex:Female Date:12/16/2024 Phone: Address:[address] [place], [id number] Subjective: * Chief Complaints: * P ost Op * HPI: F oot: Елена is presents for her first post op visit. She is s/p 1st MPJ fusionand correction of 5th hammertoe. She is on ASA daily and taking 3-4 percocet a day. She has been NWB in a splint. She denies calf pain and SOB. * Medical History: Anemia Arthritis Medical History Verified * Surgical History: [place] Teeth Carpal Tunnel Surgical History verified. * Family History: M other: diagnosed with Mental health disorder. P aternal Grandfather: diagnosed with Mental health disorder. P aternal Grandmother: diagnosed with Mental health disorder. F amily History Verified.. * Social History: Social History Verified. P jani is a current smoker. No alcohol use. * Medications: T akingOndansetron 4 MG Tablet Disintegrating 1 tablet on the tongue and allow to dissolve Orally every 6 hours As needed for nauseaAspirin 325 MG Tablet 1 tablet Orally twice a day Medication List reviewed and reconciled with the patientTaking Ondansetron 4 MG Tablet Disintegrating 1 tablet on the tongue and allow to dissolve Orally every 6 hours As needed for nauseaTaking Aspirin 325 MG Tablet 1 tablet Orally twice a day Medication List reviewed and reconciled with the patient * Allergies: N .K.D.A.yesAllergies Verified. Objective: * Examination: G eneral Examination: S kin: Incisions well coapted. No SOI. Vascular: No calf pain on squeeze. Pedal pulses palpable MSK: No pain out of proportion. Able to wiggle toes without pain. Assessment: * Assessment: 1. H allux valgus (acquired), right foot - M20.11 (Primary) 2 . H ammertoe of right foot - M20.41 Plan: * Treatment: * Follow Up: 2 Weeks Billing Information: * Visit Code: 33985 Postop visit. * Procedure Codes: * Sign off status: Completed true * Provider: Sherine Barnes DPM Date: 0 12/16/2024 Generated for Pérez nguyen/Viky/Yuri on: 0 12/24/2024 12:07 PM EDT
--- OUTSIDE RECORDS SUMMARY | 2024-12-24 12:07 | XMS_ITS | Clinical Summary ---
Author Organization [facility] Address [address] [place] [address] Care Team Providers Care Per Diem Interpreter Name Role Phone Franc Coppola MD Primary Care Provider [phone] Active Problems Problem Noted Date Diagnosed Date Acquired hallux valgus 10/19/2022 Bilateral carpal tunnel syndrome 10/19/2022 Bunion of left foot 10/19/2022 Contracture of left Achilles tendon 10/19/2022 Contracture, right ankle 10/19/2022 Degeneration, intervertebral disc, lumbar 2022 Fibrocystic breast changes 10/19/2022 Onychomycosis due to dermatophyte 10/19/2022 Other specified re lated conditions, first trimester ([facility]) 10/19/2022 Vaginal bleeding 10/19/2022 Family History Medical [...] THINPREP TIS PAP REFLEX HPV MRNA E6/E7 (18981) Routine 01/07/2020 from Last 3 Months or Most Recently Relevant to Health Maintenance Results * THINPREP TIS PAP REFLEX HPV MRNA E6/E7 (97407) (01/07/2020) CLINICAL INFORMATION: None given NOMS LEGACY [...] LAB Comment: JJK, CT(ASCP) CT screening location: [place] [address]. COMMENT SEE COMMENT NOMS LEG ACY EXTERNAL [...] Health Maintenance Insurance [employer] Care Teams Per Diem Interpreter Relationship Specialty Start Date End Date Franc Coppola MD [address] [facility] [address] [place] [address] PCP - General Internal Medicine 10/19/22
--- OUTSIDE RECORDS SUMMARY | 2024-12-24 12:07 | XMS_ITS | Patient Health Record ---
Author Organization [facility] Address [address] [place], [place] [id number] Support Name Relationship Address Phone Francheska Diego Guarantor Unknown [phone] Reason For Referral No Information Plan Of Treatment No Information
--- OUTSIDE RECORDS SUMMARY | 2024-12-24 12:07 | XMS_ITS | Encounter Summary ---
Author Organization [employer] Address [id number] [address] [place] [address] Care Team Providers Care Director Corporate Name Role Phone No Pcp, No Pcp Primary Care Provider Unavailabl e Encounter Details Date Type Department Care Team (Late st Contact Info) Description 10/18/2024 Results Follow-Up [facility] Obstetrics/Gynecolog y [address] [place] [address] Sharee Copeland RN POCT , urine, [...] documented as of this encounter Care Teams Director Corporate Relationship Specialty Start Date End Date No Pcp, [place] [address] PCP - General Family Medicine 10/07/16 documented as of this encounter
--- OUTSIDE RECORDS SUMMARY | 2024-12-24 12:07 | XMS_ITS | Patient Health Record ---
Author Organization [facility] Address [address] [address] Care Team Providers Care Senior Risk Manager Name Role Phone Amaury Barnes [phone] Allergies No Known Allergies Reason For Referral No Information Medications Medication SIG (Take, Route, Frequency, Duration) Notes Start Date End Date Status Aspirin 325 MG Tablet 1 tablet Orally tw ice a day; Duration: 30 days 12/03/2024 Active Ondansetron 4 MG Tablet Disintegrating 1 tablet on the tongue and allow to dissolve Orally every 6 hours; Duration: 5 days As needed for nausea 12/03/2024 Active Social History Section Notes: Patient is a current smoker. No alcohol use. Patient is a current smoker. No alcohol use. Patient is a current smoker. No alcohol use. Problems Problem Type SNOMED Code ICD Code Onset Dates Problem Status W/U Status Risk Notes Problem Acquired hallux valgus (08363251) Hallux valgus (acquired), right foot (M20.11) Active confirmed Encounters Encounter Location Date Provider Diagnosis [address] [address] 10/18/2024 Amaury Barnes Hallux valgus (acquired), right foot M20.[address] [address] 11/25/2024 Amaury Barnes Hallux valgus (acquired), right foot M20.11 and Hammertoe of right foot M20.[address] [address] 12/16/2024 Amaury Barnes Hallux valgus (acquired), right foot M20.11 and Hammertoe of right foot M20.[address] [address] 12/03/2024 [facility] [place], [facility] [address] [facility] [address] [place] [address] 12/05/2024 [facility] Assessments Encounter Date Diagnosis (ICD Code) Assessment Notes Treatment Notes Treatment Clinical Notes Section Notes 10/18/2024 Hallux valgus (acquired), right foot (ICD-10 - M20.11) Persistent right foot pain centered around a longstanding bunion, worsening over the past few months. Pain now radiates to the ankle, with changes noted in the second and pinky toes. No swelling reported; left foot not significantly affected. History of delaying surgery due to manageable symptoms and work constraints. Minimal relief from non-surgical measures such as toe spacers, wider shoes, and anti-inflammatory medications. Prior consultation with Dr. Ortiz, who recommended surgery. Patient is concerned about anesthesia and recovery time due to work and driving limitations. - Discussed surgical correction for right foot bunion and associated arthritis, including procedure details, risks, and expected recovery. - Advised patient to continue symptomatic management with wider shoes, toe spacers, and anti-inflammatory medications as needed. - Recommended patient consider timing for surgery based on personal and work schedule, with option to schedule procedure in the future. - Offered preoperative planning including labs, EKG, and anesthesia consultation if surgery is chosen. 11/25/2024 Hallux valgus (acquired), right foot (ICD-10 - M20.11) I discussed the pros & cons of continued nonoperative care vs surgical intervention. She has had pain for 5-6 years and has worsened significantly over last year. At last appointment pain was seemingly limited to the 1st MPJ and bunion however today she relates that her 5th has also become bothersome so would like it fix as well. Patient would like to undergo surgical intervention and I recommended: Right 1st MPJ fusion with bone grafting as needed and PIPJ arthroplasty of right 5th toe Specific complications that could potentially occur were discussed in detail which included wound/dehiscence, infection, pain, bleeding, numbness/tingling, DVT/PE, swelling and need for additional surgery. Additional complications discussed included nonunion, delayed union, malunion and painful hardware. Postoperative course was discussed including weight bearing status: NWB x1 week then WBAT in CAM x5-7wks Orders for preoperative clearance and scheduling were placed. Anesthesia was discussed and all questions answered to satisfaction. 11/25/2024 Hammertoe of right foot (ICD-10 - M20.41) 12/16/2024 Hallux valgus (acquired), right foot (ICD-10 [...] Hammertoe of right foot (ICD-10 - M20.41) 10/18/2024 Other specifically discussed 1st MPJ fusion and recovery associated Plan Of Treatment Next Appt Details Provider Name:Amaury santos, 12/30/2024 11:30:00 AM, [address] [facility], [address], [place], [address], Insurance Providers Payer Name Payer Address Payer Phone Subscriber Number Group Number Insured Name Patient Relationship to Insured Coverage Start Date Coverage End Date [facility] [address] [place] [address] [id number] Francheska Diego Self - patient is the insured Medical (General) History Medical History History ICD Code Anemia Arthritis Surgical History Surgery Date(Month/Year) Carpal Tunnel [place] [facility]
--- OUTSIDE RECORDS SUMMARY | 2024-12-24 12:08 | XMS_ITS | CCD ---
Author Organization [facility] Care Team Providers Care Lead Caster Name Role Phone AJSEN FRASER Attending Unavailable JASEN FRASER Consulting Unavailable [...] Date Documented Date Episodic/Chronic Acquired foot deformities (5 sources) Acquired hallux valgus; Translations: [Hallux valgus (acquired), unspecified foot] Onset: 10-19-2022 10-17-2024 Chronic Contraceptive and procreative management (3 sources) Patient encounter status; Translations: [Encounter for initial prescription of contraceptive pills] Onset: 10-17-2024 10-17-2024 Episodic Menstrual disorders (2 sources) Menorrhagia; Translations: [Excessive and frequent menstruation with regular cycle] Onset: 10-17-2024 10-17-2024 Chronic Other acquired deformities (5 sources) Contracture of joint of right ankle; Translations: [Contracture, right ankle] Onset: 10-19-2022 10-17-2024 Chronic Other connective tissue disease (1 source) Neuralgia and neuritis, unspecified; Translations: [NEURALGIA AND NEURITIS UNSPECIFIED] Onset: 04-14-2021 Episodic Other nervous system disorders (5 sources) Bilateral carpal tunnel syndrome; Translations: [Carpal tunnel syndrome, bilateral upper limbs] Onset: 10-19-2022 10-17-2024 Chronic Other nutritional; endocrine; and metabolic disorders (5 sources) Body mass index 25-29 - overweight; [...] Spondylosis; intervertebral disc disorders; other back problems (5 sources) Degeneration of lumbar intervertebral disc; Translations: [Degeneration, intervertebral disc, lumbar] Onset: 10-19-2022 10-17-2024 Chronic Substance-related disorders (5 sources) Smoker; Translations: [Nicotine dependence, unspecified, uncomplicated] Onset: 10-17-2024 10-17-2024 Chronic Unclassified (3 sources) LOW BACK PAIN, UNSPECIFIED; Translations: [LOW BACK PAIN, UNSPECIFIED] Onset: 04-14-2021 Past or Other Problems Problem Classification Problem Date Documented Date Episodic/Chronic Acquired foot deformities (5 sources) Bunion; Translations: [Bunion of left foot] Onset: 10-19-2022 10-17-2024 Episodic Mood disorders (5 sources) Mood disorders Onset: 10-17-2024 10-17-2024 Mycoses (5 sources) Onychomycosis due to dermatophyte ; Translations: [Tinea unguium] Onset: 10-19-2022 10-17-2024 Episodic Other complications of (4 sources) Other specified related conditions, first trimester; Translations: [OTH SPEC PREG RELATED COND 1ST TRI] Onset: 07-28-2020 Episodic Other connective tissue disease (5 sources) Contracture of left Achilles tendon; Translations: [Short Achilles tendon (acquired), left ankle] Onset: 10-19-2022 10-17-2024 Episodic Unclassified (1 source) LOW BACK PAIN, UNSPECIFIED; Translations: [LOW BACK PAIN, UNSPECIFIED] Onset: 04-07-2021 Unclassified (5 sources) Onset: 10-17-2024 10-17-2024 Results Test Name Value Interpretation Reference Range Facility HIGH RISK HPV W/GENOon 10-17 HPV 16 Negative Normal Negative [facility] Comment on above: Performed By: #### H PV #### [facility] [address] [place] [address] VIR HPV 18 Negative Normal Negative [facility] Comment on above: Performed By: #### H PV #### [facility] ([facility]) [address] [place] [address] VIR OTHER HIGH RISK HPV Negative Normal Negative [facility] Comment on above: Result Comment: HPV types 31, 33, 35, 39, 45, 52, 56, 58, 59, 66, and 68 DNA were undetectable. Performed By: #### H RADHA #### [facility] ([facility]) [address] [place] [address] VIR POCT , urineon 10-01 Beta HCG ( test) Ql (U) Negative [facility] Interpretation and review of laboratory results Normal [facility] XR CSPINE OBL FLEX_EXTon XR CSPINE OBL [...] by: KIRA MORENO Date: 2021-04-07 13:56 Normal [facility] XR LSPINE 2_3 VIEWSon 2021 [...] by: KIRA MORENO Date: 2021-04-07 13:58 Normal [facility] Basic Metabolic Panelon 06-0 Calcium [Mass/Vol] 8.9 mg/dL Normal 8.2-10.2 [facility] Comment on above: Performed By: #### C BC, BMP, PP #### [facility] [address] [place] [address] [place] Chloride [Moles/Vol] 102 mmol/L Normal 95-114 [facility] Comment on above: Performed By: #### C BC, BMP, PP #### [facility] [address] CO2 [Moles/Vol] 23.3 mmol/L Normal 22.0-30.0 [facility] Comment on above: Performed By: #### C BC, BMP, PP #### [facility] [address] Creatinine [Mass/Vol] 0.73 mg/dL Normal 0.44-1.03 [facility] Comment on above: Performed By: #### C BC, BMP, PP #### [facility] [address] [place] [address] [place] Creatinine Clr Calc Pharmacy 107.37 [facility] Comment on above: Result Comment: PERF ORMED BY: [place] [address] PATHOLOGIST SNOW REMOVAL/PLOWING SOURAV TOBIAS M.D. Performed By: #### C BC, BMP, PP #### [address] Estimated GFR ( Winnie > 60 [facility] Comment on above: Result Comment: GFR estimated reference range: According to KDOQI guidelines, <60 ml/min/1.73m2 is sufficient to diagnose a patient with chronic kidney disease. Performed By: #### C BC, BMP, PP #### [facility] [address] Estimated GFR (Non- Am > 60 [facility] Comment on above: Performed By: #### C BC, BMP, PP #### [facility] [address] Glucose [Mass/Vol] 98 mg/dL Normal 70-100 [facility] Comment on above: Result Comment: [place] Glucose Reference Range is dependent on time and content of last meal. Glucose of more than 200 mg/dL in a nonstressed, ambulatory subject supports the diagnosis of Diabetes Mellitus. ADA recommended reference range Performed By: #### C ALONDRA ADHIKARI, PP #### [facility] [address] Potassium [Moles/Vol] 3.4 mmol/L Low 3.5-5.1 [facility] Comment on above: Performed By: #### C ZEYNEP, ALONDRA, PP #### [facility] [address] [place] [id number] [facility] Sodium [Moles/Vol] 136 mmol/L Normal 136-146 [facility] Comment on above: Performed By: #### C ALONDRA ADHIKARI, PP #### [facility] [address] [place] [id number] [facility] Urea nitrogen [Mass/Vol] 6 mg/dL Low 9-23 [facility] Comment on above: Performed By: #### C ZEYNEP, ALONDRA, PP #### [facility] [address] [place] [id number] [facility] COVID-19 Antigenon 1 COVID-19 [facility] [...] its performance Danelle Disclaimer characteristic determined by [employer] and Danelle Disclaimer validated at [facility]. This Danelle Disclaimer test has not been [...] is terminated or revoked sooner. PERFORMED BY: [facility] [address] [place] [address] PATHOLOGIST SNOW REMOVAL/PLOWING SOURAV TOBIAS M.D. Normal [facility] Comment on above: Performed By: #### C OVID 19 [facility] CEDIAN[place], COVID-19 DANELLE #### [facility] [address] [place] [id number] [facility] COVID-19 FRMCon 09-05-2020 SARS-CoV-2 (COVID-19) RNA SHRAVAN+probe Ql (Unsp spec) Negative Normal Negative [facility] Comment on above: Order Comment: Healt hcare Worker?: N Result Comment: Testing for SARS-CoV-2 by RT-PCR This test was developed and its performance characteristics determined by [facility]) and validated at the [facility]. This test has not been FDA cleared [...] is terminated or revoked sooner. PERFORMED BY: [facility] [address] [place] [address] PATHOLOGIST SNOW REMOVAL/PLOWING SOURAV TOBIAS M.D. Performed By: #### C OVID 19 [facility] CEDSHELBIENADIA, COVID-19 DANELLE #### [facility] [address] [place] [id number] [facility] Coagulation Profileon 2020 aPTT Coag (Bld) [Time] 41.8 s High 25.1-36.5 [facility] Comment on above: Result Comment: PERF ORMED BY: [facility] [address] [place] [address] PATHOLOGIST SNOW REMOVAL/PLOWING SOURAV TOBIAS M.D. Performed By: #### C ALONDRA ADHIKARI, PP #### [address] INR Coag (PPP) [Relative time] 1.1 {INR} Normal [facility] Comment on above: Result Comment: INR Therapeutic [...] By: #### C ALONDRA ADHIKARI, PP #### [address] PT Coag (PPP) [Time] 11.8 s Normal 9.0-12.9 [facility] Comment on above: Performed By: #### C ALONDRA ADHIKARI, PP #### [address] Complete Blood Count Auto Di ffon 09-05-2020 Basophils (Bld) [#/Vol] 0.1 10*3/uL Normal 0.0-0.2 [facility] Comment on above: Result Comment: PERF ORMED BY: [place] [address] PATHOLOGIST SNOW REMOVAL/PLOWING SOURAV TOBIAS M.D. Performed By: #### C ALONDRA ADHIKARI, PP #### [address] Basophils/100 WBC (Bld) 0.7 % Normal . [facility] Comment on above: Performed By: #### C ALONDRA ADHIKARI, PP #### [address] Eosinophils (Bld) [#/Vol] 0.4 10*3/uL Normal 0.0-0.45 [facility] Comment on above: Performed By: #### C ALONDRA ADHIKARI, PP #### [facility] [address] Eosinophils/100 WBC (Bld) 4.7 % Normal . [facility] Comment on above: Performed By: #### C ALONDRA ADHIKARI, PP #### [facility] [address] Erythrocyte distribution width (RBC) [Ratio] 12.6 % Normal 11.9-15.3 [facility] Comment on above: Performed By: #### C ALONDRA ADHIKARI, PP #### [address] Hematocrit (Bld) [Volume fraction] 37.2 % Normal 34.0-46.4 [facility] Comment on above: Performed By: #### C ALONDRA ADHIKARI, PP #### [address] Hemoglobin (Bld) [Mass/Vol] 13.0 g/dL Normal 11.8-15.4 [facility] Comment on above: Performed By: #### C ALONDRA ADHIKARI, PP #### [address] Lymphocytes (Bld) [#/Vol] 2.5 10*3/uL Normal 1.00-4.8 [facility] Comment on above: Performed By: #### C ALONDRA ADHIKARI, PP #### [address] Lymphocytes/100 WBC (Bld) 32.3 % Normal . [facility] Comment on above: Performed By: #### C ALONDRA ADHIKARI, PP #### [address] MCH (RBC) [Entitic mass] 29.7 pg Normal 24.7-34.3 [facility] Comment on above: Performed By: #### C ALONDRA ADHIKARI, PP #### [address] MCV (RBC) [Entitic vol] 85.1 fL Normal 80-100 [facility] Comment on above: Performed By: #### C BC, BMP, PP #### [facility] [address] Mean Corpuscular HGB Conc 34.9 g/dL Normal 32.0-35.0 [facility] Comment on above: Performed By: #### C ZEYNEP BMP, PP #### [facility] [address] [place] [address] [place] Monocytes (Bld) [#/Vol] 0.6 10*3/uL Normal 0.0-0.8 [facility] Comment on above: Performed By: #### C ZEYNEP, BMP, PP #### [facility] [address] [place] [address] [place] Monocytes/100 WBC (Bld) 8.3 % Normal . [facility] Comment on above: Performed By: #### C ZEYNEP BMP, PP #### [facility] [address] [place] [address] [place] Neutrophils (Bld) [#/Vol] 4.2 10*3/uL Normal 1.8-7.7 [facility] Comment on above: Performed By: #### C ZEYNEP BMP, PP #### [facility] [address] [place] [address] [place] Neutrophils/100 WBC (Bld) 54.0 % Normal . [facility] Comment on above: Performed By: #### C ZEYNEP BMP, PP #### [facility] [address] [place] [address] [place] Nucleated RBC/100 WBC (Bld) [Ratio] 0.4 % Normal 0-0.5 [facility] Comment on above: Performed By: #### C ZEYNEP, BMP, PP #### [facility] [address] [place] [address] [place] Platelet mean volume (Bld) [Entitic vol] 9.0 fL Normal 6.3-10.7 [facility] Comment on above: Performed By: #### C BC, BMP, PP #### [facility] [address] [place] [address] [place] Platelets (Bld) [#/Vol] 195 10*3/uL Normal 150-450 [facility] Comment on above: Performed By: #### C BC, BMP, PP #### [facility] [address] [place] [address] [place] RBC (Bld) [#/Vol] 4.38 10*6/uL Normal 3.60-5.00 [facility] Comment on above: Performed By: #### C BC, BMP, PP #### [facility] [address] [place] [address] [place] WBC (Bld) [#/Vol] 7.8 10*3/uL Normal 4.5-11.0 [facility] Comment on above: Performed By: #### C BC, BMP, PP #### [place] [address] [place] Dipstick and Microscopicon 0 09-05-2020 Appearance (U) Clear Normal Clear [facility] Comment on above: Order Comment: Name Collection Type:: Clean-Voided Midstream Performed By: #### U HCG, ADDONUAPLUS #### [address] Bacteria,Urine None Seen Normal None Seen [facility] Comment on above: Order Comment: Name Collection Type:: Clean-Voided Midstream Performed By: #### U HCG, ADDONUAPLUS #### [address] Bilirubin,Urine Negative Normal Negative [facility] Comment on above: Order Comment: Name Collection Type:: Clean-Voided Midstream Performed By: #### U HCG, ADDONUAPLUS #### [address] Color (U) Yellow Normal Yellow [facility] Comment on above: Order Comment: Name Collection Type:: Clean-Voided Midstream Performed By: #### U HCG, ADDONUAPLUS #### [address] Glucose Ql (U) Normal Normal Normal [facility] Comment on above: Order Comment: Name Collection Type:: Clean-Voided Midstream Performed By: #### U HCG, ADDONUAPLUS #### [address] [place] [address] [place] Hyaline Casts,Urine 0-8 Normal 0-8 [facility] Comment on above: Order Comment: Name Collection Type:: Clean-Voided Midstream Performed By: #### U HCG, ADDONUAPLUS #### [address] Ketones Ql (U) Negative Normal Negative [facility] Comment on above: Order Comment: Name Collection Type:: Clean-Voided Midstream Performed By: #### U HCG, ADDONUAPLUS #### [address] Leukocyte esterase Test strip Ql (U) Negative Normal Negative [facility] Comment on above: Order Comment: Name Collection Type:: Clean-Voided Midstream Performed By: #### U HCG, ADDONUAPLUS #### [address] Nitrite,Urine Negative Normal Negative [facility] Comment on above: Order Comment: Name Collection Type:: Clean-Voided Midstream Performed By: #### U HCG, ADDONUAPLUS #### [address] Occult Blood,Urine 3+ High Negative [facility] Comment on above: Order Comment: Name Collection Type:: Clean-Voided Midstream Performed By: #### U HCG, ADDONUAPLUS #### [address] pH (U) [pH] Normal 5.0-9.0 [facility] Comment on above: Order Comment: Name Collection Type:: Clean-Voided Midstream Performed By: #### U HCG, ADDONUAPLUS #### [address] Protein,Urine Negative Normal Negative [facility] Comment on above: Order Comment: Name Collection Type:: Clean-Voided Midstream Performed By: #### U HCG, ADDONUAPLUS #### [facility] [address] [place] [address] RBC LM.HPF (Urine sed) [#/Area] 0 /[HPF] Normal 0-4 [facility] Comment on above: Order Comment: Name Collection Type:: Clean-Voided Midstream Performed By: #### U HCG, ADDONUAPLUS #### [address] Renal Epithelial Cells,Urine 0-1 Normal 0-1 [facility] Comment on above: Order Comment: Name Collection Type:: Clean-Voided Midstream Performed By: #### U HCG, ADDONUAPLUS #### [address] Specificy [place],Urine 1.008 Normal 1.001-1.030 [facility] Comment on above: Order Comment: Name Collection Type:: Clean-Voided Midstream Performed By: #### U HCG, ADDONUAPLUS #### [address] Squamous Epithelial Cell,Urine 1-2 Normal 0-2 [facility] Comment on above: Order Comment: Name Collection Type:: Clean-Voided Midstream Performed By: #### U HCG, ADDONUAPLUS #### [address] Urobilinogen,Urine Normal Normal Normal [facility] Comment on above: Order Comment: Name Collection Type:: Clean-Voided Midstream Performed By: #### U HCG, ADDONUAPLUS #### [place] [address] [place] WBC LM.HPF (Urine sed) [#/Area] 0 /[HPF] Normal 0-4 [facility] Comment on above: Order Comment: Name Collection Type:: Clean-Voided Midstream Performed By: #### U HCG, ADDONUAPLUS #### [address] ECG 12 lead ECGon 09-05-2020 ECG 12 lead ECG [facility] [place] [address] [place] [address] Electrocardiograph Report Signed Patient: Francheska Diego MR#: [id number] : 1985 Acct:[id number] Age/Sex: 35 / F ADM Date: 09/05/20 Loc: ER Room: Type: [facility] ER Attending Dr: Ordering Provider: [...] DO 09/05/20 0320 Signed By: 09/06/20 1147 [facility] HCG,Quantitativeon HCG,Quantitative 14.26 m[iU]/mL [facility] Comment on above: Result Comment: Appr oximate Approximate hCG Gestational Age Range (mIU/ml) (weeks) 0.2-1 5-50 1-2 50-500 2-3 100-5,000 3-4 500-10,000 4-5 1,000-50,000 5-6 10,000-100,000 6-8 15,000-200,000 8-12 10,000-100,000 PERFORMED BY: [address] [place] [address] PATHOLOGIST SNOW REMOVAL/PLOWING SOURAV TOBIAS M.D. Performed By: #### H CGQNT #### [place] [id number] [facility] HCG,Urineon 09-05-2020 Beta HCG ( test) Ql (U) Negative [facility] Comment on above: Order Comment: Name Collection Type:: Clean-Voided Midstream Result Comment: PERF ORMED BY: [address] [place] [address] PATHOLOGIST SNOW REMOVAL/PLOWING SOURAV TOBIAS M.D. Performed By: #### U HCG, ADDONUAPLUS #### [facility] [address] [place] [address] [place] Danelle Ag Negativeon 09-06-19 Danelle Ag Negative Negative Normal Negative [facility] Comment on above: Result Comment: This is a duplicate Danelle SARS Antigen (ANU) result to be used for statistical tracking purpose only. PERFORMED BY: [place] [address] PATHOLOGIST SNOW REMOVAL/PLOWING SOURAV TOBIAS M.D. Performed By: #### C OVID 19 [facility] [place], COVID-19 DANELLE #### [address] Type and Screenon 09-05-2020 ABO and Rh group Nom (Bld) Blood group O Rh(D) positive Normal [facility] Comment on above: Result Comment: PERF ORMED BY: [place] [address] PATHOLOGIST SNOW REMOVAL/PLOWING SOURAV TOBIAS M.D. US transvaginalon 09-05-2020 US transvaginal [facility] [place] [address] [place] [address] Ultrasound Report Signed Patient: Francheska Diego MR#: [id number] : 1985 Acct:[id number] Age/Sex: 35 / F ADM Date: 09/05/20 Loc: ER Room: Type: [facility] ER Attending Dr: Ordering Provider: Gaston Menjivar Jr, MD Date of Service: 09/05/20 US/US pelvic complete: heavy bleeding recent elective Ab, r/o retained POC ([id number]) US/US transvaginal: . Copies to: Gaston Menjivar [...] Christianson Jr., M.D.09/05/2020 9:19 AM Dictation Location: [place] [address] Tech: Lulu Willoughby Transcribed By: MELITON 09/05/20918 Dictated By: Warren Christianson Jr, MD 09/05/20909 Signed By: 09/05/20918 [facility] PREG QUANT HCGon 07-28-2020 HCG QUANT 25782 mIU/mL Normal [facility] Comment on above: Result Comment: Veri fied by dilution. Performed By: #### P REGQNT #### [facility] [address] [place], [place] [id number] John Zamorano HCG RANGE SEE BELOW Normal [facility] Comment on above: Result Comment: 5-50 0-1 WEEK 40-300 1-2 WEEKS 100-1,000 2-3 WEEKS 500-6,000 3-4 WEEKS 5,000-200,000 1-2 MONTHS 10,000-100,000 2-3 MONTHS 3,000-50,000 2ND TRIMESTER 1,000-50,000 3RD TRIMESTER Performed By: #### P REGQNT #### [facility] [address] [place], [place] [address] John Zamorano Vital Signs Date Time Vital Sign Value Performing Clinician Christiano charles 10-17-2024 11:03-0400 Body height 166.4 cm Frances Zuniga UTILITY SUPERVISOR [employer]ICE SUPERVISOR Work Phone: [facility] 10-17-2024 11:03-0400 Body mass index (BMI) [Ratio] 29.56 kg/m2 Frances Zuniga UTILITY SUPERVISOR [employer] SERVICE SUPERVISOR Work Phone: [facility] [employer] [facility] 10-17-2024 11:03-0400 Body weight 81.83 kg Frances Zuniga UTILITY SUPERVISOR [employer] SERVICE SUPERVISOR Work Phone: [facility] [employer] [facility] 10-17-2024 11:03-0400 Diastolic blood pressure 68 mm[Hg] Frances Zuniga UTILITY SUPERVISOR [employer] SERVICE SUPERVISOR Work Phone: [facility] [employer] [facility] 10-17-2024 11:03-0400 Systolic blood pressure 102 mm[Hg] Frances Zuniga UTILITY SUPERVISOR [employer] SERVICE SUPERVISOR Work Phone: [facility] Encounters Encounter Date Encounter Type Care Provider Facility Start: 10-21-2024 End: 10-21-2024 Orders Only Frances Zuniga UTILITY SUPERVISOR [employer] SERVICE SUPERVISOR Work Phone: [facility] Comment on above: Encounter for initia l prescription of contraceptive pills (Primary Dx) Start: 10-18-2024 End: 10-18-2024 Encounter for gynecological examination (general) (routine) without abnormal findings Sharee Copeland RN [facility] [employer] [facility] Start: 10-18-2024 End: 12-18-2024 Orders Only Sharee Copeland RN [facility] Comment on above: Pap smear, as part o f routine gynecological examination (Primary Dx) POCT , urin e, Thin Prep Pap Test, High Risk HPV w/Barb Start: 10-17-2024 End: 10-17-2024 Initial preventive medicine new pt age 18-39yrs Frances Zuniga UTILITY SUPERVISOR [employer] SERVICE SUPERVISOR Work Phone: [facility] Comment on above: Well woman exam with routine gynecological exam (Primary Dx); Encounter for screening mammogram for malignant neoplasm of breast; Encounter for initial prescription of contraceptive pills; Menorrhagia with regular cycle; Standardized adult depression screening tool completed; Screening for cervical cancer; Pap smear, as part of routine gynecological examination Start: 10-17-2024 End: 10-17-2024 Patient encounter procedure Frances Zuniga UTILITY SUPERVISOR [employer] SERVICE SUPERVISOR Work Phone: [facility] Start: 10-17-2024 End: 10-17-2024 ambulatory FRANCES ZUNIGA [facility] Start: 10-17-2024 End: 10-17-2024 Encounter for gynecological examination (general) (routine) without abnormal findings Frances Zuniga UTILITY SUPERVISOR [employer] SERVICE SUPERVISOR Work Phone: [facility] Start: 04-07-2021 End: 04-08-[address] JANETH HERNÁNDEZ Facility:[facility] Start: 07-28-2020 End: 07-29-2020 ambulatory JASEN FRASER Facility:[facility] Procedures Date Procedure Procedure Detail Performing Clinician Start: 10-17-2024 Urine test visual color cmprsn meths Frances Zuniga UTILITY SUPERVISOR [employer] SERVICE SUPERVISOR Work Phone: Start: 10-17-2024 Adult depression scr eening assessment Frances Zuniga UTILITY SUPERVISOR [employer] SERVICE SUPERVISOR Work Phone: Start: 10-17-2024 Microscopic observat ion [Identifier] in Cervix by Cyto stain Frances Zuniga UTILITY SUPERVISOR [employer] SERVICE SUPERVISOR Work Phone: Start: 09-05-2020 Antibody screen Comment on above: Result Comment: PERF ORMED BY: [facility] [address] [place] [address] PATHOLOGIST SNOW REMOVAL/PLOWING SOURAV TOBIAS M.D. Plan of Treatment Date Care Activity Detail Author Start: 10-18-2027 Screening for malign ant neoplasm of cervix Pap Smear [facility] Start: 10-17-2025 Adult BMI Follow Up Plan Adult BMI Follow Up Plan [facility] Start: 10-17-2025 Adult BMI Screening Adult BMI Screen ing [facility] Start: 10-17-2025 Depression Screening Depression Scre ening [facility] Start: 10-17-2025 Tobacco Screening Tobacco Screening [facility] Start: 12-02-2024 Influenza vaccination Influenza Vacc ine [facility] Start: 10-17-2024 End: 10-17-2025 US Pelvis transabdominal and transvaginal Ultrasound pelvic with transvaginal Imaging Routine Menorrhagia with regular cycle Expected: 10/17/2024, Expires: 10/17/2025 [facility] Comment on above: Expected: 10/17/2024 , Expires: 10/17/2025 Start: 2006 Screening for malign ant neoplasm [facility] cervix [facility]: 2004 DTaP,Tdap and Td Vac cines (1 - Tdap) DTaP,Tdap and Td Vaccines (1 - Tdap) [facility]I Start: 1985 Tobacco Counseling Tobacco Counselin g MOOI DBT Breast - bilater al screening Mammography screening bilateral with CAD Imaging Routine Encounter for screening mammogram for malignant neoplasm of breast Ordered: 10/17/2024 [employer] Work Phone: Comment on above: Ordered: 10/17/2024 End: 10-18-2025 High Risk HPV w/Barb High Risk HPV w/Barb Lab Routine Pap smear, as part of routine gynecological examination 1 Occurrences starting 10/18/2024 until 10/18/2025 [employer] Work Phone: Comment on above: 1 Occurrences starti ng 10/18/2024 until 10/18/2025 Thin Prep Pap Test Thin Prep Pap Test Pathology and Cytology Routine Pap smear, as part of routine gynecological examination 10/17/2024 12:25 PM EDT MOOI Payers Date Payer Category Payer [facility] Managed Care - Other [facility] [id number] 2024 Unknown [id number] 1985 Unknown [id number] 1985 Unknown [id number] 1985 Unknown [id number] 1959 Unknown [id number] Social History Date Type Detail Facility Start: 10-17-2024 Tobacco smoking stat RUSTIS Smokes tobacco daily [facility] History of tobacco use Cigarette Smoker [facility] Start: 10-17-2024 Tobacco use and exposure Smokeless tobacco non-user [facility] Start: 10-17-2024 Alcoholic beverage intake Ex-drinker (finding) [facility] Start: 05-14-2020 End: 10-17-2024 History of Social function [facility] Start: 05-14-2020 End: 10-17-2024 Tobacco use panel [facility] Adolescent depressio n screening assessment 1 [facility] Start: 1985 Sex assigned at Not on file [facility] Start: 11-06-2014 Sex Female (finding) [facility] Clinical Notes 10-17-2024 to 10-21-2024 Telephone Encounter - Argenis Brooks - 10/21/2024 10:09 AM EDTTelephone Encounter - ALEXANDRIA Schwarz - 10/21/2024 10:09 AM EDTTelephone Encounter - Argenis Brooks - 10/21/2024 10:09 AM EDT Note Date & Type Note Facility 10-21-2024 Miscellaneous Notes Formattin g of this note might be different from the original. Pt states she went to [facility], but her out of pocket cost was going to be over $100. Pt is wondering if there is a different BC RX that can be sent. Pt states she is not against doing Depo again if there isn't a different RX. Please advise. Thank you Alternate medication sent. Advised Pt new RX was sent. documented in this encounter [facility] 10-21-2024 Telephone encount er Note Pt states she went to [facility], but her out of pocket cost was going to be over $100. Pt is wondering if there is a different BC RX that can be sent. Pt states she is not against doing Depo again if there isn't a different RX. Please advise. Thank you [facility] 10-21-2024 Telephone encount er Note Alternate medication sent. [facility] 10-21-2024 Telephone encount er Note Advised Pt new RX was sent. [facility] 10-18-2024 History of Presen t illness Narrative HPV Order placed. - Sharee Copeland RN 10/18/24 1:47 PM documented in this encounter [facility] 10-17-2024 History of Presen t illness Narrative Annual Well Woman Visit 10/17/2024 Deborah Diego is a pleasant 39 y.o. 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 Follow up as needed. Await pap. Discussed ASCCP screening guidelines. Discussed taking a multivitamin. Discussed Calcium and Vitamin D for prevention of osteoporosis. Discussed recommendations for HPV vaccine between 9-45 yo. Can be received at [facility] or the health department. Discussed need for yearly mammogram after 40 yo. Encouraged smoking cessation. Discussed colon cancer screening recommendations to begin at 45 yo, patient to discuss with PCP. All questions answered. MICHAELA Gupta APRN-CNP Lisa M Krotzer, APRN-CNP 10/17/24 1210 documented in this encounter [facility] Evaluation note Diagnosis Well woman exam with [...] of the cervix [facility] Diagnosis Pap smear, as part of routine gynecological examination- Primary Screening for malignant neoplasm of the cervix [facility] Diagnosis Encounter for initial prescription of contraceptive pills- Primary [facility]* Attachments The following attachments cannot be sent through Care Everywhere. * Calcium and vitamin D for bone health (Iraqi) * Drospirenone, ADULT (Iraqi) * Quitting smoking for adults (Iraqi) [facility] SystemInstructionsNot on file documented in this encounterNor[facility] SystemInstructionsNot on file documented in [facility] encounter[facility] CenterInstructionsNot on file [facility] Summary Purpose Family History No Family History Records FoundNo Family History Records FoundNo Family History Records Found Advance Directives No Advanced Directives Records FoundNo Advanced Directives Records FoundNo Advanced Directives Records Found Additional Source Comments INFORMATION SOURCE (unrecogn ized section and content) DATE CREATED AUTHOR 04/15/2021 [facility] DATE CREATED AUTHOR AUTHOR'S ORGANIZ ATION 04/22/2021 [facility] DATE CREATED AUTHOR AUTHOR'S ORGANIZ ATION 10/23/2024 [facility] Reason for Visit (unrecogniz ed section and content) Reason Comments Gynecologic Exam Care Teams (unrecognized sec tion and content) Lead Caster Relationship Specialty Start Date End Date No Pcp, No Pcp [place]RELLA [place] [address] PCP - General Family Medicine 10/07/16 Lead Caster Relationship Specialty Start Date End Date No Pcp, [place] [address] PCP - General Family Medicine 10/07/16 Lead Caster Relationship Specialty Start Date End Date No Pcp, [place] [address] PCP - General Family Medicine 10/07/16 FOR [...] BE BASED ON THE PRIMARY CLINICAL RECORDS. [employer] [facility]. provides no warranty or guarantee of the accuracy or completeness of information in this document.
--- OUTSIDE RECORDS SUMMARY | 2024-12-24 12:08 | XMS_ITS | Patient Health Record ---
Author Organization [facility] es Address [address] [place] [address] Care Team Providers Care Blood Bank Worker Name Role Phone Eduin Conti Primary Care Provider Allergies No Known Allergies Reason For Referral [...] 08/19/2024 Encounters Encounter Location Date Provider Diagnosis [facility] [address] [place] [address] 09/02/[address] [facility] [address] [place] [address] 10/15/2024 Eduin Conti Encounter for screening mammogram for malignant neoplasm of breast Z12.31 [facility] [address] [place] [address] 08/19/2024 Eduin Conti Encounter to establish care [...] Coverage End Date ANTHEM Primary [address] [place] [address] [phone] [id number] RIKY ARREAGA Self - patient is the insured 4 Medical (General) History Surgical History Surgery Date(Month/Year) carpal tunnel release- right
--- OUTSIDE RECORDS SUMMARY | 2024-12-24 12:08 | XMS_ITS | Clinical Summary ---
Author Organization [email or web address] [facility] Address [id number] [address] [place] [address] Care Team Providers Care Rotary Furnace Tender Name Role Phone No Pcp, No Pcp [...] [facility] [address] [place] [address] Frances Bee, SHOE RECONDITIONER-SPORTS BROADCASTER Encounter for initial prescription of contraceptive pills (Primary Dx) 10/21/2024 Telephone [facility] [address] [place] [address] Frances Bee, SHOE RECONDITIONER-SPORTS BROADCASTER 10/18/2024 Results Follow-Up [facility]/Gynecveronica mullen [address] [place] [address] Sharee Copeland, RN POCT , urine, Thin Prep Pap Test, High Risk HPV w/Barb 10/18/2024 Orders Only [facility] [address] [place] [address] Sharee Copeland, RN Pap smear, as part of routine gynecological examination (Primary Dx) 10/17/2024 11:00 AM EDT Office Visit [facility] [address] [place] [address] Frances Bee, SHOE RECONDITIONER-SPORTS BROADCASTER Well woman exam with routine gynecological exam [...] Breast Bilateral Mammography 10/21/2024 us Frances Bee SHOE RECONDITIONER-SPORTS BROADCASTER IMG MAMMOGRAPHY ORDERABL ES Final Result * Thin Prep Pap Test (10/17/2024 12:25 PM EDT) Case Report Gynecologic Cytology Report Case: [id number] Authorizing Provider: ALEXANDRIA Schwarz Collected: 10/17/2024 1225 [facility] Received: 10/17/2024 1226 Obstetrics/Gy necology First Screen: SHARLA Parker(ASCP) Specimen: Thin Prep Pap, Cervix/Endocer vix 1:16 PM EDT [facility] Specimen Adequacy Satisfactory for evaluation, endocervical/t ransformation zone component present 1:16 PM EDT [facility] Interpretation NEGATIVE FOR INTRAEPITHELIA L LESION OR MALIGNANCY NEGATIVE FOR INTRAEPITHELIA L LESION OR MALIGNANCY, UNSATISFACTORY , EPITHELIAL CELL ABNORMALITY, GLANDULAR EPITHELIAL CELL ABNORMALITY. , SQUAMOUS EPITHELIAL CELL ABNORMALITY, NO DIAGNOSIS RENDERED. 1:16 PM EDT [facility] at 1316 EDT Additional Information The Pap test is a screening test with an inherent, but low, probability of error. The Pap test is primarily effective for the diagnosis and prevention of squamous cell carcinoma. Regular screening is critical for prevention. ThinPrep liquid-based slides, which meet the [employer] criteria for automated screening, have been screened by the ThinPrep Imaging System (as of 12/18/06) along with an additional manual rescreening by a cytotechnologi st and, if indicated, by a pathologist. 1:16 PM EDT [facility] Clinical Information LAST PAP 10 YEARS AGO 1:16 PM EDT [facility] Embedded Images 1:16 PM EDT [facility] Thin Prep (Cervix/Endocerv ix) 10/17/2024 12:25 PM EDT 10/17/2024 12:26 PM EDT us Frances IBRAHIM PATHOLOGY/CYTOLOGY ORDER DELISA Final Result [facility] [address] [place] [address], [place] [phone] * POCT , urine (10/17/2024 11:27 AM EDT) External Poct Urine Negative MANUALLY TRANSCRIBED RESULTS Urine 10/17/2024 11:2 7 AM EDT Frances Bee SHOE RECONDITIONER-SPORTS BROADCASTER POINT OF CARE TEST ORDER DELISA Final Result Performing Organization Address City/[facility] Co de Phone Number MANUALLY TRANSCRIBED RESULTS * High Risk HPV w/Barb (10/17/2024 4:58 AM EDT) HPV 16 Negative Negative 10/21/2024 1:40 PM EDT [facility] HPV 18 Negative Negative 10/21/2024 1:40 PM EDT [facility] OTHER HIGH RISK HPV Negative Negative 10/21/2024 1:40 PM EDT [facility] Comment:HPV types 31, 33, 35 , 39, 45, 52, 56, 58, 59, 66, and 68 DNA were undetectable. Thin Prep (Cervix/Endocerv ix) 10/17/2024 4:58 AM EDT 10/21/2024 4:58 AM EDT Frances Bee SHOE RECONDITIONER-SPORTS BROADCASTER LAB BLOOD ORDERABLES Fin al Result Performing Organization Address City/[facility]/ZIP Co de Phone Number [facility] [address] [place] [address], [place] [phone] from Last 3 Months Insurance [facility] [address] [address] [address] [address] Care Teams Rotary Furnace Tender Relationship Specialty Start Date End Date No Pcp, [place] [address] PCP - General Family Medicine 10/07/16
--- NOTE | 2024-12-24 12:09 | XR_ITS ---
[facility] [place] [id number] Patient Name: RIKY ARREAGA MRN: [id number] date: 1985 Sex: F Assigned Patient Location: [facility] Current Patient Location: [facility] Accession/Order Number: [id number] Exam Date: 12/24/2024 12:26 Report Date: 12/24/2024 13:02 At the request of: FERNANDO METZ DPIvory Procedure: XR foot RT min 3V RIGHT FOOT - 3 views COMPARISON: 12/03/2024 and 10/15/2024 CLINICAL DATA: Follow-up after bunion surgery. Weightbearing AP, lateral and oblique views were obtained. There is redemonstration of a dorsal plate and screws along the first metatarsal phalangeal joint where there is interval fusion. This appears similar to the most recent comparison. There is deformity at the head of the proximal phalanx of the fifth toe. This is difficult to evaluate on the recent prior due to a splint that time. It was not seen on the preoperative exam. Correlation will be needed to determine if this is also postoperative. There is no developing fracture or dislocation. There are no significant soft tissue abnormalities. XR/XR foot RT min 3V IMPRESSION: POSTOPERATIVE CHANGES AT THE FIRST TOE. DEVELOPING DEFORMITY AT THE HEAD OF THE PROXIMAL PHALANX OF THE FIFTH TOE FOR WHICH CLINICAL CORRELATION IS RECOMMENDED. NO OTHER ACUTE FINDINGS. Impression dictated by: Lona Mendez M.D. 12/24/2024 1:02 PM Dictation Location[facility] Electronically authenticated by: [id number] Y Date: 12/24/2024 13:02
== END 2024-12-24 12:06 | disposition home or self-care (01) ==
LOC: RAD 12:05
PROVIDERS: Visit Provider Podiatrist Foot & Ankle Surgery
DX: M79.671 Pain in right foot (principal); M20.11 Hallux valgus (acquired), right foot
CPT/HCPCS: 73630

== ENCOUNTER 2025-01-27 11:02 | Outpatient (OUT) | payer BC, SELFPAY ==
--- OUTSIDE RECORDS SUMMARY | 2024-09-02 10:00 | XMS_ITS ---
Author Organization [facility] Address [address] [place] [address] Care Team Providers Care Fibre Technologist Name Role Phone Eduin Conti Primary Care Provider REASON FOR VISIT 2 WEEK LAB REVIEW Encounters Encounter Location Date Provider Diagnosis [facility] [address] [place] [address] 09/02/2024 Eduin Conti Plan Of Treatment No Information Progress Notes * RIKY ARREAGADOB: 6 (39 yo F)Acc No.[id number]:09/02/2024 Progress Notes Patient: RIKY ARNETT Provider:?JULIA LeeOB:1985???Age: 39 Y???Sex:FemaleDate:09/02/2024Phone:[phone]:[id number] Subjective: * Chief Complaints: * 2 WEEK LAB REVIEW Billing Information: * Procedure Codes: * Electronic signature of Eduin Conti MD on 01/27/2025 at 11:05 AM EDTSign off status: Pending * Appointment Provider: Jessee Conti MD Date: 0 09/02/2024 Generated for Printing/Faxing/eTransmitting on:?01/27/2025 11:05 AM EDT
--- NOTE | 2025-01-27 11:05 | XR_ITS ---
The [address] [address] Patient Name: RIKY ARREAGA MRN: [id number] date: 1985 Sex: F Assigned Patient Location: [facility] Current Patient Location: [facility] Accession/Order Number: [id number] Exam Date: 01/27/2025 11:08 Report Date: 01/27/2025 11:42 At the request of: FERNANDO METZ DPIvory Procedure: XR foot RT min 3V RIGHT FOOT - 3 views COMPARISON: 12/24/2024 CLINICAL DATA: Follow-up after bunionectomy Standing AP, lateral and oblique views were obtained. There is redemonstration of a dorsal plate and multiple screws at the first metatarsal phalangeal joint, unchanged from the comparison. Similar deformity is seen at the head of the proximal phalanx of the fifth toe. There is no developing fracture or dislocation. There are no significant soft tissue abnormalities. XR/XR foot RT min 3V IMPRESSION: STABLE POSTOPERATIVE CHANGES AT THE FIRST TOE. Impression dictated by: Lona Mendez M.D. 01/27/2025 11:42 AM Dictation Location: [place] [address] Electronically authenticated by: [id number] Y Date: 01/27/2025 11:42
--- OUTSIDE RECORDS SUMMARY | 2025-01-27 11:05 | XMS_ITS | Clinical Summary ---
Author Organization [facility] Address [address] [place] [address] Care Team Providers Care Wire Coater Name Role Phone Franc Coppola MD Primary Care Provider [phone] Active Problems ProblemNoted DateDiagnosed DateAcquired hallux lbwxpo4410/19/2022ilateral carpal tunnel vzwnrafq30/19/2023Bunion of left foot3Contracture of left Achilles bhnbca2210/19/2022ontracture, right ankle3Degeneration, intervertebral disc, qzkdsf4310/19/2022Fibrocystic breast gqubmim7810/19/2022 Onychomycosis due to ygunwrpoacpo68/19/2023Other specified related conditions, first trimester ([facility])10/19/2022Vaginal xcnbejrr86/19/2023 Family History Medical HistoryRelationNameCommentsNo Known ProblemsFatherBrain cancerMaternal GrandfatherLung cancerMaternal GrandfatherBreast cancerMaternal GrandmotherBrain cancerMotherBreast cancerMotherLung cancerMotherNo Known ProblemsPaternal GrandfatherNo Known ProblemsPaternal GrandmotherRelationNameStatusComments AjrnzfczSjheit7AdvjtzAcnrdiynLlzytmje GrandfatherDeceasedMaternal Grandmother DeceasedMotherDeceasedPaternal GrandfatherDeceasedPaternal GrandmotherDeceased Juljnnj3KmwUiuqq Social History Tobacco UseTypesPacks/DayYears UsedDateSmoking Tobacco: Every DayCigarettes Smokeless Tobacco: Never Tobacco Cessation:Ready to Q uit: Not Asked; Counseling Given: Not Answered Comments:6-10 cigs/day Alcohol UseStandard Drinks/WeekCommentsNot Currently0 (1 standard drink = 0.6 oz pure alcohol)Caffeine intake: 1-2 cups per day coffee, soda/popEducationAnswer Date RecordedWhat is the highest level of school you have completed or the highest degree you have received?Some college, no [id number] CommentsUnknownSex and Gender InformationValueDate RecordedSex Assigned at Not on fileLegal VbpFazbcv19/15/2023 7:09 PM EDTGender IdentityNot on fileSexual OrientationNot on file Last Filed Vital Signs Vital SignReadingTime TakenCommentsBlood Hhxjglrn543/6801/ 12:00 PM EST Pulse--Temperature--Respiratory Rate--Oxygen Saturation--Inhaled Oxygen Concentration--Cuaret40.7 kg (200 lb)12/16/2021 12:00 PM WAGIugzrq188.4 cm (5' 5.5 )12/16/2021 12:00 PM EDTBody Mass Index32.78012/16/2021 12:00 PM EDT Plan of Treatment Health MaintenanceDue DateLast DoneCommentsMedicare Annual Wellness (AWV) 1985Pap Smear2006Influenza Vaccine (#1)5Cervical Cancer Ictbvuuen42/06/2025HPV/Xgwoah0851 Procedures Procedure NamePriorityDate/TimeAssociated DiagnosisCommentsTHINPREP TIS PAP REFLEX HPV MRNA E6/E7 (38546)Pqjcxas3301/07/2020 from Last 3 Months or Most Recently Relevant to Health Maintenance Results * THINPREP TIS PAP REFLEX HPV MRNA E6/E7 (27456) (01/07/2020)ComponentValueRef RangeTest MethodAnalysis TimePerformed AtPathologist SignatureCLINICAL INFORMATION:None givenNOMS LEGACY EXTERNAL LABLMP:01/05/20N[facility] LEGACY EXTERNAL LABPREV. PAP:2019 NEGATIVENOMS LEGACY EXTERNAL LABPREV. BX:None givenNOMS LEGACY EXTERNAL LABSOURCE:Cervix, EndocervixNOMS LEGACY EXTERNAL LABSTATEMENT OF ADEQUACY:SEE COMMENTNOMS LEGACY EXTERNAL LABComment: Satisfactory for evaluation. Endocervical/transformation zone component absent. INTERPRETATION/RESULT:Negative for intraepithelial lesion or malignancy.[facility] EXTERNAL LABCOMMENT:This Pap test has been evaluated with computer assisted technology.[facility] EXTERNAL LABCYTOTECHNOLOGIST:SEE COMMENTNOMS LEGACY EXTERNAL LABComment: SHARLA AVERY(ASCP) CT screening location: [facility], [address] [place] [address], [place] [address]. COMMENTSEE COMMENTNOMS LEGQUINCY [facility] EXTERNAL LABComment: EXPLANATORY NOTE: The Pap is a screening test for cervical cancer. It is not a diagnostic test and is subject to false negative and false positive results. It is most reliable when a satisfactory sample, regularly obtained, is submitted with relevant clinical findings and history, and when the Pap result is evaluated along with historic and current clinical information. Specimen (Source)Anatomical Location / LateralityCollection Method / Volume Collection TimeReceived Time01/07/2020 Narrative Authorizing ProviderResult TypeResult StatusJonathan F LeakeECW LABSFinal Result Performing OrganizationAddressCity/State/ZIP CodePhone Number [facility] LAB from Last 3 Months or Most Recently Relevant to Health Maintenance Insurance Care Teams Team MemberRelationshipSpecialtyStart DateEnd Date Franc Coppola MD [address] [facility] [address] [place] [address] PCP - GeneralInternal Medicine10/19/22
--- OUTSIDE RECORDS SUMMARY | 2025-01-27 11:05 | XMS_ITS | Patient Health Record ---
Author Organization [facility] Address [address] [place] [address] Care Team Providers Care Staff Developer Name Role Phone Amaury Barnes [phone] Allergies No Known Allergies Reason For Referral No Information Medications Medication SIG (Take, Route, Frequency, Duration) Notes Start Date End Date Status Aspirin 325 MG Tablet 1 tablet Orally twice a da y; Duration: 30 days 5ActiveOndansetron 4 MG Tablet Disintegrating 1 tablet on the tongue and allow to dissolve Orally every 6 hours; Duration: 5 days As needed for nausea 5Active Social History Section Notes: Patient is a current smoker. No alcohol use. Patient is a current smoker. No alcohol use. Patient is a current smoker. No alcohol use. Patient is a current smoker. No alcohol use. Problems Problem Type SNOMED Code ICD Code Onset Dates Problem Status W/U Status Risk Notes Problem Acquired hallux valgus (96996783 ) Hallux valgus (acquired), right foot (M20.11) Activeconfirmed Encounters Encounter Location Date Provider Diagnosis [address] [place] [address] 10/18/2024 Amaury Barnes Hallux valgus (acquired), right foot M20.11 [address] [place] [address] 11/25/2024 Peter Molly Hallux valgus (acquired), right foot M20.11 and Hammertoe of right foot M20.[address] [place] [address] 12/16/2024 Amaury Barnes Hallux valgus (acquired), right foot M20.11 and Hammertoe of right foot M20.41 [place] [address], [place] [address] 12/30/2024 [facility] Hallux valgus (acquired), right foot M20.11 and Hammertoe of right foot M20.41 [facility], [facility] [address] [facility] [address] [place] [address] 12/03/2024 [facility], [address] [facility] [address], [place] [address]/04/2025[facility] Assessments Encounter Date Diagnosis (ICD Code) Assessment [...] measures such as toe spacers, wider shoes, andanti-inflammatory medications. Prior consultation with Dr. Ortiz, who recommended surgery. Patient is concerned about anesthesia and recovery time due to work and driving limitations. - Discussed surgical correction for right foot bunion and associated arthritis, including proceduredetails, risks, and expected recovery. - Advised patient to continue symptomatic management with wider shoes, toe spacers, and anti-inflammatory medications as needed. - Recommended patient consider timing for surgery based on personal and work schedule, with option to schedule procedure in the future. - Offered preoperative planning including labs, EKG, and anesthesia consultation if surgery is chosen. 11/25/2024Hallux valgus (acquired), right foot (ICD-10 - M20.11) [...] discussed and all questions answered to satisfaction. 11/25/2024Hammertoe of right foot (ICD-10 - M20.41)12/16/2024Hallux valgus (acquired), right foot (ICD-10 - M20.11) Patient may transition to CAM boot partial protected WB to the right heel. She will need the CAM boot for stability and pain relief while she continues to heal and recover from foot surgery. She willneed the CAM boot for approximately 3 months [...] of tylenol in a 24 hr period. 12/16/2024Hammertoe of right foot (ICD-10 - M20.41)12/30/2024Hallux valgus (acquired), right foot (ICD-10 - M20.11) Patient is doing very well. No evidence of DVT or infection on exam. She is taking 1-2 percocet a day. A refill was sent to her pharmacy and she is to wean down and take only when necessary. She should continue ASA daily for one additional week. Xrays were ordered and reviewed and there is stable hardware with good bone aposition of the fusionsite. Alignment preserved. Sutures discontinued. She may WBAT in CAM boot as pain allows Handicap plaquard slip was also provided. F/u in 4 wks with WB foot xrays. 12/30/2024Hammertoe of right foot (ICD-10 - M20.41)10/18/2024Otherspecifically discussed 1st MPJ fusion and recovery associated Plan Of Treatment Next Appt Details Provider Name:Amaury santos, 01/27/2025 11:30:00 AM, [address] [facility], [address], [place], [address], Insurance Providers Payer Name Payer Address Payer Phone Subscriber Number Group Number Insured Name Patient Relationship to Insured Coverage Start Date Coverage End Date [facility] [address] [place] [address] [id number] Salvador Diego - patient is the insured Medical (General) History Medical History History ICD Code Anemia ArthritisSurgical History Surgery Date(Month/Year) [place] TeethCarpal Tunnel
--- OUTSIDE RECORDS SUMMARY | 2025-01-27 11:05 | XMS_ITS | Patient Health Record ---
Author Organization [facility] Address [address] [place], [place] [id number] Support Name Relationship Address Phone Francheska Diego Guarantor Unknown [phone] Reason For Referral No Information Plan Of Treatment No Information
--- OUTSIDE RECORDS SUMMARY | 2025-01-27 11:06 | XMS_ITS | Clinical Summary ---
Author Organization [facility] tem Address [facility] [id number] [address] [place] [address] Care Team Providers Care Calibration Engineer Name Role Phone No Pcp, No Pcp Primary Care Provider Unavailabl e Allergies No known active allergies Medications MedicationSigDispense QuantityRefillsLast FilledStart DateEnd DateStatus norethindrone (MICRONOR) 0.35 mg tablet Indications:Encounter for initial prescription of contraceptive pillsTake 1 tablet (0.35 mg total) by mouth in the morning. 28 tablet 1105Active Active Problems ProblemNoted DateDiagnosed YbakGdtxzk72/17/2025Overweight (BMI 25.0-29.9) 10/17/2024Degeneration, intervertebral disc, bopged6310/19/2022ilateral carpal tunnel lykwqxgg75/19/2023cquired hallux xkogoi4610/19/2022union of left foot 10/19/2022ontracture of left Achilles evjaqr6310/19/2022ontracture, right ankle 10/19/2022Onychomycosis due to bkjjxeiextoz35/19/2023 Family History Medical HistoryRelationNameCommentsNo Known ProblemsFatherCancerMotherLung cancerMotherRelationNameStatusCommentsFatherAliveMotherDeceased Social History Tobacco UseTypesPacks/DayYears UsedDateSmoking Tobacco: Every DayCigarettes Smokeless Tobacco: Never Tobacco Cessation:Ready to Q uit: Not Asked; Counseling Given: Not Answered Alcohol UseStandard Drinks/WeekCommentsNot Currently0 (1 standard drink = 0.6 oz pure alcohol)PHQ-2AnswerDate RecordedTotal Iqfyw0165ChildcareAnswerDate OnkwsrhiWsroadbprRznzwkp54/12/2019EmploymentAnswerDate RecordedEmploymentUnknown 09/12/2018Hunger ScreeningAnswerDate RecordedWithin the past 12 months we worried whether our food would run out before we got money to buy more.Never True10/17/2024Within the past 12 months the food we bought just didn't last and we didn't have money to get more.Never True10/17/2024Purpose - LifeAnswerDate RecordedPurpose and direction in vifhPyrmvjz31/11/2021CommentsNoSex and Gender InformationValueDate RecordedSex Assigned at BirthNot on fileLegal Sex Oegqux2911/06/2014 11:36 AM EDTGender IdentityNot on fileSexual OrientationNot on file Last Filed Vital Signs Vital SignReadingTime TakenCommentsBlood Qlbyzqyw580/68010/17/2024 11:03 AM EDT Dapot321403/20/2017 10:33 AM OMEXgzzmuzyoig77.7 ??C (98.1 ??F)03/20/2017 10:33 AM ESTRespiratory Yjoa755405/21/2016 10:33 AM ESTOxygen Qeukbovpjs67%03/20/2017 10:33 AM ESTInhaled Oxygen Concentration--Oqlvir90.8 kg (180 lb 6.4 oz)10/17/2024 11:03 AM EWXTjrwww771.4 cm (5' 5.5 )10/17/2024 11:03 AM EDTBody Mass Index29.56 10/17/2024 11:03 AM EDT Plan of Treatment Health MaintenanceDue DateLast DoneCommentsTobacco Roziteltky58/01/1986DTaP,Tdap and Td Vaccines (1 - Tdap)2004Influenza Boptikj0912/02/2024dult BMI Follow Up Plandult BMI Jcvumwswl93Depression Ldqhwywhi88Tobacco Zzcvdfvon04Pap Smear , 10/17/2024 Medical Devices Not on file Procedures Procedure NamePriorityDate/TimeAssociated DiagnosisCommentsTHIN PREP PAP TEST Xtajitt7310/17/2024 12:25 PM EDT Pap smear, as part of routine gynecological examination from Last 3 Months or Most Recently Relevant to Health Maintenance Results * Thin Prep Pap Test (10/17/2024 12:25 PM EDT)ComponentValueRef RangeTest Method Analysis TimePerformed AtPathologist SignatureCase ReportGynecologic Cytology Report ? Case: [id number] ? Authorizing Provider: ??ALEXANDRIA Schwarz ?? Collected: ? 10/17/2024 1225 ? Ordering Location: ? [facility] ? Received: ?10/17/2024 1226 ? Obstetrics/Gynecology ? First Screen: ?SHARLA Parker(ASCP) ? Specimen: ?Thin Prep Pap, Cervix/Endocervix ? 10/18/2024 1:16 PM [facility] LABORATORYSpecimen Adequacy Satisfactory for evaluation, endocervical/transformation zone component present 10/18/2024 1:16 PM [facility] LABORATORYInterpretationNEGATIVE FOR INTRAEPITHELIAL LESION OR MALIGNANCYNEGATIVE FOR INTRAEPITHELIAL LESION OR MALIGNANCY, UNSATISFACTORY, EPITHELIAL CELL ABNORMALITY, GLANDULAR EPITHELIAL CELL ABNORMALITY. , SQUAMOUS EPITHELIAL CELL ABNORMALITY, NO DIAGNOSIS RENDERED. 10/18/2024 1:16 PM [facility] at 1316 EDTAdditional InformationThe Pap test is a screening test with an inherent, but low, probability of error. The Pap test is primarily effective for the diagnosis and prevention of squamous cell carcinoma. Regular screening iscritical for prevention. ThinPrep liquid-based slides, which meet the Clothing Worker criteria for automated screening, have been screened by the [employer] System (as of 12/18/06) along with an additional manual rescreening by a supervisor winding department and, if indicated, by a pathologist.10/18/2024 1:16 PM [facility] LABORATORYClinical InformationLAST PAP 10 YEARS AGO10/18/2024 1:16 PM [facility] LABORATORYEmbedded Osmprn3310/18/2024 1:16 PM [facility] LABORATORYSpecimen (Source)Anatomical Location / LateralityCollection Method / VolumeCollection TimeReceived TimeThin Prep (Cervix/Endocervix) 10/17/2024 12:25 PM EDT10/17/2024 12:26 PM EDT Narrative Authorizing ProviderResult TypeResult StatusFrances Bee AGRONOMY TEACHER-CLINICAL ASSOC PATHOLOGY/CYTOLOGY ORDERABLESFinal ResultPerforming OrganizationAddress City/State/ZIP CodePhone Number [facility] [address] [place] [address], from Last 3 Months or Most Recently Relevant to Health Maintenance Insurance MemberSubscriberPlan / Payer (Effective 2024-Present)Name:Francheska Diego Relation to Subscriber:SelfName:Francheska Diego Payer ID:[id number] ([facility]) Type:Not on file Address: [place] [address] * Guarantor: Francheska Diego TypeRelation to PatientDate of BirthPhone Billing AddressThird Green Party JmsjkxoejWljm31/01/1986 [address] [address] * Guarantor: Francheska Diego TypeRelation to PatientDate of BirthPhone Billing RifprhsByfttNcrt14/01/1986 [address] [address] Care Teams Team MemberRelationshipSpecialtyStart DateEnd Date No Pcp, No Pcp ESTRELLA Quevedo [address] [facility]
--- OUTSIDE RECORDS SUMMARY | 2025-01-27 11:06 | XMS_ITS | Patient Health Record ---
Author Organization [facility] Address [address] [place] [address] Care Team Providers Care Cementer Hand Name Role Phone Eduin Conti Primary Care Provider Allergies No Known Allergies Reason For Referral No Information Social History Tobacco Use: Social History Observation Description Date Details (start date - stop date) Current Smoker NA - NA Social History GeneralSocial InfoQuestionAnswerNotesTransition of Care:ER/UC/hospital since last office visit?NoSpecialist seen since last office visit?NoSubstance abuse/mental health issues of patient/familyPatient -DeniesAbility to understand healthcare/treatmentPatient:GoodSexual Hx:Had sex in the last 12 months (vaginal, oral, or anal)?Yes? withMen only? Use protection?NoHave you ever had an STD?NoLMP:08/01/2024Social/Support Concerns:Patient:NoBehaviors affecting healthPoor/Risky Behaviors:Denies-Communication Barrier:Language Barrier?:No Drug/Alcohol:Social InfoQuestionAnswerNotesAUDIT-C (Standard)Did you have a drink containing alcohol in the past year?HaWimjzl6TyavomlohrkozeFrewcoblTkenocw Use:Social InfoQuestionAnswerNotesTobacco Control (Standard)Tobacco use:Current smoker? How often do you smoke cigarettes?Every day? How many cigarettes a day do you smoke?6-10? How soon after you wake up do you smoke your first cigarette? Within 5 minutes? Are you interested in quitting?Thinking about quitting Vital Signs Heart Rate 85 /min 08/19/2024 Krayhvraiow71.2 degrees Vrnlvljhlq17/19/2025Respiratory Rate18 /min08/19/2024 Ipldqava55 %08/19/2024lood pressure fimmvntuv29 mm Hg08/19/20247550Umnrpt89.5 in 08/19/2024lood pressure ohuqvtrs093 mm Hg08/19/20243284Esxktu810.4 lbs08/19/2024MI 30.38 kg/m208/19/2024 Encounters Encounter Location Date Provider Diagnosis [facility] [address] [place] [address] 09/02/2024 [facility] [place] [address]/15/2025 [facility] for malignant neoplasm of breast Z12.31[facility] [place] [address] 08/19/2024[facility]rolga [facility] Z76.89 ; Diabetes mellitus screening Z13.1 and Oral thrush B37.0 Assessments Encounter Date Diagnosis (ICD Code) Assessment Notes Treatment Notes Treatment Clinical Notes Section Notes 08/19/2024 Diabetes mellitus screening (ICD -10 - Z13.1) 08/19/2024Encounter to establish care (ICD-10 - Z76.89)10/15/2024Encounter for screening mammogram for malignant neoplasm of breast (ICD-10 - Z12.31)08/19/2024 Oral thrush (ICD-10 - B37.0)08/19/2024Other Discussed patient concerns regarding her recent ER visit and establishing care. I encouraged her tocontinue drinking plenty of fluids and getting adequate [...] Date MM screening mammo BI w/CAD 10/15/2024 Insurance Providers Payer Name Payer Address Payer Phone Subscriber Number Group Number Insured Name Patient Relationship to Insured Coverage Start Date Coverage End Date ANTHEM Primary [address] [place] [id number] RIKY ARREAGA Self - patient is the insured 4 Medical (General) History Surgical History Surgery Date(Month/Year) carpal tunnel release- right
--- OUTSIDE RECORDS SUMMARY | 2025-01-27 11:34 | XMS_ITS | CCD ---
Author Organization [facility] Care Team Providers Care Air Tank Assembler Name Role Phone JASEN FRASER Attending Unavailable [...] PCP Primary Care Unavailable Medications Current Medications MedicationDrug Class(es)DatesSig (Normalized)Sig (Original)norethindrone 0.35 mg oral tablet (2 sources)Start: 38-50-0516zrfh 1 tablet by mouth in the morningnorethindrone (MICRONOR) 0.35 mg tablet Indications: Encounter for initial prescription of contraceptive pills Take 1 tablet (0.35 mg total) by mouth in the morning. 28 tablet 11 10/21/2024 Active Completed/Discontinued Medications MedicationDrug Class(es)DatesSig (Normalized)Sig (Original)drospirenone, contraceptive, 4 mg (28) tablet (3 sources)Start: 10-17-2024 End: 15-79-7600kadw 1 tablet by mouth in the morningdrospirenone, contraceptive, 4 mg (28) tablet Indications: Encounter for initial prescription of con traceptive pills Take 4 mg by mouth in the morning. 84 tablet 3 10/17/2024 10/21/2024 Discontinued (Cost of medication)Start: 68-70-5431bsms 1 tablet by mouth in the morningdrospirenone, contraceptive, 4 mg (28) tablet Indications: Encounter for initial prescription of contraceptive pills Take 4 mg by mouth in the morning. 84 tablet 3 10/17/2024 Active1 ml medroxyPROGESTERone acetate 150 mg/ml injection (1 source)Progestin End: 32-90-0029vshcbqoWOGQWFDGDykc (DEPO-PROVERA) 150 mg/mL injection Inject 150 mg into the appropriate muscle every 3 (three) months. 10/17/2024 Discontinued (Therapy completed)sulfamethoxazole 800 mg / trimethoprim 160 mg oral tablet (1 source)Dihydrofolate Reductase Inhibitor Antibacterial, Sulfonamide Antimicrobial End: 02-53-7578udho 1 tablet by mouth twice dailysulfamethoxazole-trimethoprim (BACTRIM DS) 800-160 mg per tablet Take 1 tablet by mouth 2 (two) times a day. 10/17/2024 Discontinued (Therapy completed) Problems Active Problems Problem ClassificationProblemDateDocumented DateEpisodic/ChronicAcquired foot deformities (5 sources)Acquired hallux valgus; Translations: [Hallux valgus (acquired), unspecified foot]Onset: 588176-67-2017JghcztzZqdtbwehxfibe and procreative management (3 sources)Patient encounter status; Translations: [Encounter for initial prescription of contraceptive pills]Onset: 980298-00-4181HrhjnlysAqgtvoiep disorders (2 sources)Menorrhagia; Translations: [Excessive and frequent menstruation with regular cycle]Onset: 441341-07-2981FpxjhzfOlwgq acquired deformities (5 sources)Contracture of joint of right ankle; Translations: [Contracture, right ankle]Onset: 535313-91-6212FablbtbAnrys connective tissue disease (1 source)Neuralgia and neuritis, unspecified; Translations: [NEURALGIA AND NEURITIS UNSPECIFIED]Onset: 28-81-6386AozaaojvWmetq nervous system disorders (5 sources)Bilateral carpal tunnel syndrome; Translations: [Carpal tunnel syndrome, bilateral upper limbs]Onset: 629424-86-3231BaunoolUgdez nutritional; endocrine; and metabolic disorders (5 sources)Body mass index 25-29 - overweight; Translations: [Overweight]Onset: 629042-06-3750CfdznsrwIyzle screening for suspected conditions (not mental disorders or infectious disease) (5 sources)Encounter for screening for uncertain dates; Translations: [Patient encounter status]Onset: 132211-43-2628KoadkaqlNozhzcstx and history of mental health and substance abuse codes (2 sources)Standardized adult depression screening tool completed ; Translations: [Encounter for screening fordepression]Onset: EpisodicSpondylosis; intervertebral disc disorders; other back problems (5 sources)Degeneration of lumbar intervertebral disc; Translations: [Degeneration, intervertebral disc, lumbar]Onset: hronic Substance-related disorders (5 sources)Smoker; Translations: [Nicotine dependence, unspecified, uncomplicated]Onset: 069928-55-8950UxsnrqwHdjbescbpbkg (3 sources)LOW BACK PAIN, UNSPECIFIED; Translations: [LOW BACK PAIN, UNSPECIFIED]Onset: 04-14-2021 Past or Other Problems Problem ClassificationProblemDateDocumented DateEpisodic/ChronicAcquired foot deformities (5 sources)Bunion; Translations: [Bunion of left foot]Onset: 10-19-2022 31-83-5997XpkgejxqXjss disorders (5 sources)Mood disordersOnset: 399648-13-3964Lijahuv (5 sources)Onychomycosis due to dermatophyte ; Translations: [Tinea unguium] Onset: 671010-28-5137HksrxwziWngem complications of (4 sources)Other specified related conditions, first trimester; Translations: [OTH SPEC PREG RELATEDCOND 1ST TRI]Onset: 13-13-0460AbawxgmfTeohb connective tissue disease (5 sources)Contracture of left Achilles tendon; Translations: [Short Achilles tendon (acquired), left ankle]Onset: 409091-82-1627IefxkyiuGfbwnflxlygg (1 source)LOW BACK PAIN, UNSPECIFIED; Translations: [LOW BACK PAIN, UNSPECIFIED] Onset: 31-54-3313Jualonrhvecx (5 sources)Onset: Results Test NameValueInterpretationReference RangeFacilityHIGH RISK HPV W/GENOon 88-85-0634CEK 16NegativeNormalNegativeProMedica Hospital Ambulatory PPGComment on above:Performed By: #### HPV #### [facility] [address] [place] [address] VIRHPV 18NegativeNormalNegativeKettering Health Miamisburg Ambulatory PPGComment on above:Performed By: #### HPV #### [facility] [address] [place] [address] VIROTHER HIGH RISK HPVNegativeNormalNegativeKettering Health Miamisburg Ambulatory PPGComment on above:Result Comment: HPV types 31, 33, 35, 39, 45, 52, 56, 58, 59, 66, and 68 DNA were undetectable.Performed By: #### HPV #### [facility] [address] [place] [address] VIRPOCT , urineon 40-99-2238Sukr HCG ( test) Ql (U)NegativeChillicothe VA Medical CenterInterpretation and review of laboratory resultsNoSt. Mary Medical CenterXR CSPINE OBL FLEX_EXTon 13-23-3681IF CSPINE OBL FLEX_EXTEXAMINATION: XR CSPINE OBL FLEX_EXT HISTORY: Neuralgia COMPARISON: [...] Electronically authenticated by: KIRA MORENO Date: 2021-04-07 13:[address] [place], [place] [address]XR LSPINE 2_3 VIEWSon 37-61-3000XV LSPINE 2_3 VIEWSEXAMINATION: XR LSPINE 2_3 VIEWS HISTORY: Low back pain COMPARISON: XR lumbar spine 01/07/2010 FINDINGS: BONES: No significant spondylosis, scoliosis, fracture, or visible bony lesion. DISC SPACES: Moderate narrowing L5-S1. PARASPINOUS: Negative. No paraspinous abnormality is seen. OTHER: Negative. IMPRESSION: 1. L5-S1 mild-moderate degenerative disc disease; slightly progressed. Electronically authenticated by: KIRA MORENO Date: 2021-04-07 13:58[facility] Metabolic Panelon 02-05-3383Xfpmjjb [Mass/Vol]8.9 mg/dL Normal8.2-10.2FOhioHealth Arthur G.H. Bing, MD, Cancer CenterComment on above:Performed By: #### CBC BMP, PP #### [facility] [address] [place] [address] USAChloride [Moles/Vol]102 mmol/SBcmpit27-711IukmdfwqhCherrington HospitalComment on above:Performed By: #### CBC BMP, PP #### [place] [address] USACO2 [Moles/Vol]23.3 mmol/QJytugv54.0-30.0Cherrington HospitalComment on above:Performed By: #### CBC BMP, PP #### [place] [address] USACreatinine [Mass/Vol]0.73 mg/dLNormal0.44-1.03Cherrington HospitalComment on above:Performed By: #### CBC BMP, PP #### [place] [address] USACreatinine Clr Calc Dtpnqnyw655.37NoFayette County Memorial HospitalComment on above:Result Comment: PERFORMED BY: [place] [address] PATHOLOGIST STAGE HAND SOURAV TOBIAS M.D.Performed By: #### CBC BMP, PP #### [place] [address] USAEstimated GFR ( Winnie> 60NoFayette County Memorial HospitalComment on above:Result Comment: GFR estimated reference range: According to KDOQI guidelines, <60 ml/min/1.73m2 is sufficient to diagnose a patient with chronic kidney disease.Performed By: #### CBC, BMP, PP #### [place] [address] USAEstimated GFR (Non- Am> 60NormalCherrington HospitalComment on above:Performed By: #### ALONDRA LUNA, PP #### [place] [address] USAGlucose [Mass/Vol]98 mg/uUQiriif53-176XkrwpxrgwCherrington HospitalComment on above:Result Comment: Random Glucose Reference Range is dependent on time and content of last meal. Glucose of more than 200 mg/dL in a nonstressed, ambulatory subject supports the diagnosis of Diabetes Mellitus. ADA recommended reference rangePerformed By: #### ALONDRA LUNA, PP #### [place] [address] USAPotassium [Moles/Vol]3.4 mmol/LLow3.5-5.1FOhioHealth Arthur G.H. Bing, MD, Cancer CenterComment on above:Performed By: #### ALONDRA LUNA, PP #### [place] [address] USASodium [Moles/Vol]136 mmol/KBajqns383-223YasiobzxyCherrington HospitalComment on above:Performed By: #### ALONDRA LUNA, PP #### [place] [address] USAUrea nitrogen [Mass/Vol]6 mg/dLLow9-23Cherrington HospitalComment on above:Performed By: #### ALONDRA LUNA, PP #### [place] [address] USACOVID-19 Antigenon 11-89-8264QJIIS-19 AntigenHealthcare Worker?: N Danelle Reference Danelle Reference Negative [...] its performance Danelle Disclaimer characteristic determined by [employer] and Danelle Disclaimer validated at [facility]. This Danelle Disclaimer test has not [...] Emergency Use Authorization for Coronavirus Danelle Disclaimer isease2019 during the Public Health Emergency) Danelle Disclaimer [...] is terminated or revoked sooner. PERFORMED BY: [facility] [address] [place] [address] PATHOLOGIST STAGE HAND SOURAV TOBIAS M.D.NormalCherrington HospitalComment on above: Performed By: #### COVID 19 [place], SOFIANEG, COVID-19 DANELLE #### [address] [place] [address] USACOVID-19 MUSCOGEEon 08-23-7255IPFF-CoV-2 (COVID-19) RNA SHRAVAN+probe Ql (Unsp spec)NegativeNormalNegativeCherrington Hospital Comment on above:Order Comment: Healthcare Worker?: NResult Comment: Testing for SARS-CoV-2 by RT-PCR This test was developed and its performance characteristics determined by [employer]) and validated at the [facility]. This test has not been FDA [...] is terminated or revoked sooner. PERFORMED BY: [address] [place] [address] PATHOLOGIST STAGE HAND SOURAV TOBIAS M.D.Performed By: #### COVID 19 [place], SOFIANEG, COVID-19 DANELLE #### [place] [address] USACoagulation Profileon 12-21-9210pCUT Coag (Bld) [Time]41.8 sHigh25.1-36.5FOhioHealth Arthur G.H. Bing, MD, Cancer CenterComment on above:Result Comment: PERFORMED BY: [place] [address] PATHOLOGIST STAGE HAND SOURAV TOBIAS M.D.Performed By: #### CBC, BMP, PP #### [place] [address] USAINR Coag (PPP) [Relative time]1.1 {INR}NormalCherrington HospitalComment on above:Result Comment: INR Therapeutic Range A) Pre- and [...] patients with mechanical heart valves: 3 - 4.5Performed By: #### CBC, BMP, PP #### [place] [address] USAPT Coag (PPP) [Time]11.8 sNormal9.0-12.9Cherrington HospitalComment on above:Performed By: #### CBC, BMP, PP #### [place] [address] USAComplete Blood Count Auto Diffon 93-89-5409Pvcmkqrsk (Bld) [#/Vol]0.1 10*3/uLNormal0.0-0.2FOhioHealth Arthur G.H. Bing, MD, Cancer CenterComment on above:Result Comment: PERFORMED BY: [place] [address] PATHOLOGIST STAGE HAND SOURAV TOBIAS M.D.Performed By: #### CBC, BMP, PP #### [address] [place] [address] USABasophils/100 WBC (Bld)0.7 %Normal.Cherrington HospitalComment on above:Performed By: #### CBC, BMP, PP #### [facility] [address] [place] [address] USAEosinophils (Bld) [#/Vol]0.4 10*3/uLNormal0.0-0.45 Cherrington HospitalComment on above:Performed By: #### CBC, BMP, PP #### [facility] [address] [place] [address] USAEosinophils/100 WBC (Bld)4.7 %Normal.Cherrington HospitalComuniversity of michigan health on above:Performed By: #### CBC, BMP, PP #### [place] [address] USAErythrocyte distribution width (RBC) [Ratio]12.6 %Normal 11.9-15.3FOhioHealth Arthur G.H. Bing, MD, Cancer CenterComment on above:Performed By: #### CBC, BMP, PP #### [place] [address] USAHematocrit (Bld) [Volume fraction]37.2 %Uyeads97.0-46.4 Cher[facility] HospitalComuniversity of michigan health on above:Performed By: #### CBC, BMP, PP #### [place] [address] USAHemoglobin (Bld) [Mass/Vol]13.0 g/gZVgkgjr08.8-15.4 Cher[facility] HospitalComuniversity of michigan health on above:Performed By: #### CBC, BMP, PP #### [place] [address] USALymphocytes (Bld) [#/Vol]2.5 10*3/uLNormal1.00-4.8 [facility] HospitalComuniversity of mich[facility] health on above:Performed By: #### CBC, BMP, PP #### [place] [address] USALymphocytes/100 WBC (Bld)32.3 %Normal.Cherrington HospitalComment on above:Performed By: #### CBC, BMP, PP #### [facility] [address] (RBC) [Entitic mass]29.7 vpUpczjj38.7-34.3FOhioHealth Arthur G.H. Bing, MD, Cancer CenterComment on above:Performed By: #### CBC, BMP, PP #### [facility] [address] (RBC) [Entitic vol]85.1 hIAgjagz77-106YnjyrchkwCherrington HospitalComment on above:Performed By: #### CBC, BMP, PP #### [place] [address] USAMean Corpuscular HGB Conc34.9 g/zYPgrtup13.0-35.0Cherrington HospitalComment on above:Performed By: #### CBC, BMP, PP #### [place] [address] USAMonocytes (Bld) [#/Vol]0.6 10*3/uLNormal0.0-0.8Cherrington HospitalComment on above:Performed By: #### CBC, BMP, PP #### [place] [address] USAMonocytes/100 WBC (Bld)8.3 %Normal.Cherrington HospitalComment on above:Performed By: #### CBC, BMP, PP #### [place] [address] USANeutrophils (Bld) [#/Vol]4.2 10*3/uLNormal1.8-7.7FOhioHealth Arthur G.H. Bing, MD, Cancer CenterComment on above:Performed By: #### CBC, BMP, PP #### [place] [address] USANeutrophils/100 WBC (Bld)54.0 %Normal.Cherrington HospitalComment on above:Performed By: #### CBC, BMP, PP #### [address] [address] USANucleated RBC/100 WBC (Bld) [Ratio]0.4 %Normal0-0.5 Cherrington HospitalComment on above:Performed By: #### CBC, BMP, PP #### [facility] [address] [place] [address] USAPlatelet mean volume (Bld) [Entitic vol]9.0 fLNormal 6.3-10.7FOhioHealth Arthur G.H. Bing, MD, Cancer CenterComment on above:Performed By: #### CBC, BMP, PP #### [facility] [address] [place] [address] USAPlatelets (Bld) [#/Vol]195 10*3/cHAnqhni051-268JmxpuajynCherrington HospitalComment on above:Performed By: #### CBC, BMP, PP #### [facility] [address] [place] [address] USARBC (Bld) [#/Vol]4.38 10*6/uLNormal3.60-5.00Cherrington HospitalComment on above:Performed By: #### CBC, BMP, PP #### [facility] [address] [place] [address] USAWBC (Bld) [#/Vol]7.8 10*3/uLNormal4.5-11.0Cherrington HospitalComment on above:Performed By: #### CBC, BMP, PP #### [facility] [address] [place] [address] USADipstick and Microscopicon 35-12-0017Isdbooahcs (U)Clear NormalCleUniversity Hospitals Conneaut Medical CenterComment on above:Order Comment: Name Collection Type:: Clean-Voided MidstreamPerformed By: #### UHCG, ADDONUAPLUS #### [facility] [address] [place] [address] USABacteria,UrineNone SeenNormalNone SeenCherrington HospitalComment on above:Order Comment: Name Collection Type:: Clean- Voided MidstreamPerformed By: #### UHCG, ADDONUAPLUS #### [facility] [address] [place], [place] [id number] USABilirubin,UrineNegativeNormalNegativeCherrington HospitalComment on above:Order Comment: Name Collection Type:: Clean- Voided MidstreamPerformed By: #### UHCG, ADDONUAPLUS #### [facility] [address] [place] [address] USAColor (U)YellowNormalYellowCherrington HospitalComment on above:Order Comment: Name Collection Type:: Clean-Voided MidstreamPerformed By: #### UHCG, ADDONUAPLUS #### [facility] [address] [place] [address] USAGlucose Ql (U)NormalNormalNormRegional Medical CenterComment on above:Order Comment: Name Collection Type:: Clean-Voided MidstreamPerformed By: #### UHCG, ADDONUAPLUS #### [facility] [address] [place] [address] USAHyaline Casts,Qivub3-7Aahdwm1-3PaomidpxbCherrington HospitalComment on above:Order Comment: Name Collection Type:: Clean-Voided MidstreamPerformed By: #### UHCG, ADDONUAPLUS #### [facility] [address] [place] [address] USAKetones Ql (U)NegativeNormalNegSelect Medical OhioHealth Rehabilitation HospitalComment on above:Order Comment: Name Collection Type:: Clean- Voided MidstreamPerformed By: #### UHCG, ADDONUAPLUS #### [facility] [address] [place], [place] [address] USALeukocyte esterase Test strip Ql (U)NegativeNormalNegative Cherrington HospitalComment on above:Order Comment: Name Collection Type:: Clean-Voided MidstreamPerformed By: #### UHCG, ADDONUAPLUS #### [facility] [address] [place] [address] USANitrite,UrineNegativeNormalNegativeCherrington HospitalComment on above:Order Comment: Name Collection Type:: Clean- Voided MidstreamPerformed By: #### UHCG, ADDONUAPLUS #### [place] [address] USAOccult Blood,Urine3+HighNegativeCherrington HospitalComment on above:Order Comment: Name Collection Type:: Clean-Voided MidstreamPerformed By: #### UHCG, ADDONUAPLUS #### [place] [address] USApH (U)[pH]Normal5.0-9.0[facility] Comment on above:Order Comment: Name Collection Type:: Clean-Voided Midstream Performed By: #### UHCG, ADDONUAPLUS #### [place] [address] USAProtein,UrineNegativeNormalNegativeCherrington HospitalComment on above:Order Comment: Name Collection Type:: Clean- Voided MidstreamPerformed By: #### UHCG, ADDONUAPLUS #### [place] [address] USARBC LM.HPF (Urine sed) [#/Area]0 /[HPF]Normal0-4FOhioHealth Arthur G.H. Bing, MD, Cancer CenterComment on above:Order Comment: Name Collection Type:: Clean-Voided MidstreamPerformed By: #### UHCG, ADDONUAPLUS #### [place] [address] USARenal Epithelial Cells,Vlayt9-0Qrxtkv9-2LzsrfkoyxOhioHealth Arthur G.H. Bing, MD, Cancer CenterComment on above:Order Comment: Name Collection Type:: Clean- Voided MidstreamPerformed By: #### UHCG, ADDONUAPLUS #### [place] [address] USASpecificy [place],Urine1.848Dtxhms9.001-1.030Cherrington HospitalComment on above:Order Comment: Name Collection Type:: Clean-Voided MidstreamPerformed By: #### UHCG, ADDONUAPLUS #### [place] [address] USASquamous Epithelial Cell,Lnxsn5-7Jujuwq8-6IcpwbpuibOhioHealth Arthur G.H. Bing, MD, Cancer CenterComment on above:Order Comment: Name Collection Type:: Clean-Voided MidstreamPerformed By: #### UHCG, ADDONUAPLUS #### [facility] [address] [place] [address] USAUrobilinogen,UrineNormalNormalNormalCherrington HospitalComment on above:Order Comment: Name Collection Type:: Clean- Voided MidstreamPerformed By: #### UHCG, ADDONUAPLUS #### [facility] [address] [place] [address] USAWBC LM.HPF (Urine sed) [#/Area]0 /[HPF]Normal0-4FOhioHealth Arthur G.H. Bing, MD, Cancer CenterComment on above:Order Comment: Name Collection Type:: Clean-Voided MidstreamPerformed By: #### UHCG, ADDONUAPLUS #### [place] [address] USAECG 12 lead ECGon 23-23-0090ULZ 12 lead ECGCLEVELAND CLINIC AK[facility] [place] [address] [place] [address] Electrocardiograph Report Signed Patient: Francheska Diego MR#: [id number] : 1985 Acct:[id number] Age/Sex: 35 / F ADM Date: 09/05/20 Loc: ER Room: Type: [facility] ER Attending Dr: Ordering Provider: [...] Allen DO 09/05/20 0320 Signed By: 09/06/20 1147NormRegional Medical CenterHCG,Quantitative on 62-67-1993CUJ,Olfhvoogfwmn09.26 m[iU]/mLNormalCherrington HospitalComment on above:Result Comment: Approximate Approximate hCG Gestational Age Range (mIU/ml) (weeks) 0.2-1 5-50 1-2 50-500 2-3 100-5,000 3-4 500-10,000 4-5 1,000-50,000 5-6 10,000-100,000 6-8 15,000-200,000 8-12 10,000-100,000 PERFORMED BY: [place] [address] PATHOLOGIST STAGE HAND SOURAV TOBIAS M.D.Performed By: #### HCGQNT #### [place] [id number] USAHCG,Urineon 49-71-0454Bmve HCG ( test) Ql (U) NegativeMorrow County HospitalComment on above:Order Comment: Name Collection Type:: Clean-Voided MidstreamResult Comment: PERFORMED BY: [place] [address] PATHOLOGIST STAGE HAND SOURAV TOBIAS M.D.Performed By: #### UHCG, ADDONUAPLUS #### [place] [id number] USASofia Ag Negativeon 13-03-2198Kufuo Ag NegativeNegative NormalNegativeCherrington HospitalComment on above:Result Comment: This is a duplicate Danelle SARS Antigen (ANU) result to be used for statistical tracking purpose only. PERFORMED BY: [place] [address] PATHOLOGIST STAGE HAND SOURAV TOBIAS M.D.Performed By: #### COVID 19 [facility], SOFIANEG, COVID-19 DANELLE #### [place] [address] USAType and Screenon 93-74-7932QUD and Rh group Nom (Bld) Blood group O Rh(D) positiveNormRegional Medical CenterComment on above:Result Comment: PERFORMED BY: [address] [address] PATHOLOGIST STAGE HAND SOURAV TOBIAS M.D.US transvaginalon 18-60-7518CF transvaginParkview Health [facility] Main [place] [address] [place] [address] Ultrasound Report Signed Patient: Francheska Diego MR#: [id number] : 1985 Acct:[id number] Age/Sex: 35 / F ADM Date: 09/05/20 Loc: ER Room: Type: [facility] ER Attending Dr: Ordering Provider: Gaston Menjivar Jr, MD Date of Service: 09/05/20 US/US pelvic complete: heavy bleeding recent elective Ab, r/o retained POC ([id number]) US/US transvaginal: . Copies to: Gaston Menjivar [...] Christianson Jr., M.D.09/05/2020 9:19 AM Dictation Location: [place] [address] Tech: Lulu Willoughby Transcribed By: MELITON 09/05/20918 Dictated By: Warren Christianson Jr, MD 09/05/20909 Signed By: 09/05/20918Morrow County HospitalPREG QUANT HCGon 07-28-2020 HCG AIOFP24820 mIU/mLNMercy Health St. Vincent Medical CenterComment on above:Result Comment: Verified by dilution.Performed By: #### PREGQNT #### [facility] [address] [place] [id number] John CanelaKindred Hospital - GreensboroRadha [facility] General HospitalComment on above:Result Comment: 5-50 0-1 WEEK 40-300 1-2 WEEKS 100-1,000 2-3 WEEKS 500-6,000 3-4 WEEKS 5,000-200,000 1-2 MONTHS 10,000-100,000 2-3 MONTHS 3,000-50,000 2ND TRIMESTER 1,000-50,000 3RD TRIMESTERPerformed By: #### PREGQNT #### [facility] [address] [place], [place] [address] John Zamorano Vital Signs Date TimeVital SignValuePerforming OpkrztzvzWetsnzvk57-69-0557 11:03-0400Body gphior309.4 Poonam Silvazer PRIMARY SPECIAL EDUCATOR-[place]INA Work Phone: [facility]07-17-2025 11:03-0400Body mass index (BMI) [Ratio]29.56 kg/m2Frances Silvazer PRIMARY SPECIAL EDUCATOR-[place] Work Phone: [facility]07-17-2025 11:03-0400Body atqcpk87.83 kgLisa Wheelerotzer PRIMARY SPECIAL EDUCATOR-[place] Work Phone: [facility]07-17-2025 11:03-0400Diastolic blood veifoljj66 mm[Hg]Frances Zuniga PRIMARY SPECIAL EDUCATOR-[place]INA Work Phone: [facility]07-17-2025 11:03-0400Systolic blood ucqojmxc665 mm[Hg]Frances Ricardozer PRIMARY SPECIAL EDUCATOR-[place] Work Phone: [facility] Encounters Encounter DateEncounter TypeCare ProviderFacilityStart: 10-21-2024 End: 56-12-3457Odwfqm Eagle Zuniga APRN-[place]INA Work Phone: [facility] Obstetrics/GynecologyComment on above:Encounter for initial prescription of contraceptive pills (Primary Dx) Start: 10-18-2024 End: 23-12-5302Nhggqofab for gynecological examination (general) (routine) without abnormal findingsSharee Copeland [facility] SystemStart: 10-18-2024 End: 08-88-9221Cixvht Diomedes [facility] Obstetrics/GynecologyComment on above:Pap smear, as part of routine gynecological examination (Primary Dx)POCT , urine, Thin Prep Pap Test, High Risk HPV w/GenoStart: 10-17-2024 End: 56-28-7835Yalhups preventive medicine new pt age 18-39yrsFrances Zuniga APRN-KAIAWHINA Work Phone: [facility] Obstetrics/GynecologyComment on above:Well woman exam with routine gynecological exam (Primary Dx); Encounter for screening mammogram for malignant neoplasm of breast; Encounter for initial prescription of contraceptive pills; Menorrhagia with regular cycle; Standardized adult depression screening tool completed; Screening for cervical cancer; Pap smear, as part of routine gynecological examinationStart: 10-17-2024 End: 48-96-3678Ltendik encounter procedureFrances Zuniga APRN-KAIAWHINA Work Phone: [facility] CenterEnobia Pharma SystemStart: 10-17-2024 End: 97-63-2175rrjddtsyrlRAPU M KROTZERKettering Health Miamisburg Ambulatory PPGStart: 10-17-2024 End: 46-02-6193Butkphvtv for gynecological examination (general) (routine) without abnormal findingsFrances Zuniga APRN-KAIAWHINA Work Phone: [facility] SystemStart: 04-07-2021 End: 90-28-0544skgthllvskNP DANIEL BERRYFacility:F7Pguje: 07-28-2020 End: 14-30-7786zbjuzqtfsfRSQA NATAPRAWIRAFacility:H1 Procedures DateProcedureProcedure DetailPerforming ClinicianStart: 66-95-8204Tlcxa test visual color cmprsn methsFrances Zuniga PRIMARY SPECIAL EDUCATOR-KAIAWHINA Work Phone: Start: 00-81-1321Ysgip depression screening assessment Frances Zuniga PRIMARY SPECIAL EDUCATOR-KAIAWHINA Work Phone: Start: 24-42-8036Tqbgqbamahs observation [Identifier] in Cervix by Cyto stainFrances Zuniga PRIMARY SPECIAL EDUCATOR-KAIAWHINA Work Phone: Start: 47-76-4437Ctdqvqxv screenComment on above: Result Comment: PERFORMED BY: [facility] [place], [place] [id number] PATHOLOGIST STAGE HAND SOURAV TOBIAS M.D. Plan of Treatment DateCare ActivityDetailAuthorStart: 05-08-1225Vqmchypdm for malignant neoplasm of cervixPap SmearKettering Health Main Campus SystemStart: 00-45-9081Unjjn BMI Follow Up PlanAdult BMI Follow Up PlanKettering Health Main Campus SystemStart: 27-92-0496Vjdfy BMI ScreeningAdult BMI ScreeningKettering Health Main Campus SystemStart: 60-59-4252Nctrjqjfxv ScreeningDepression ScreeningKettering Health Main Campus SystemStart: 07-80-6017Xacqllx ScreeningTobacco ScreeningProSelect [facility] SystemStart: 57-72-3176Jwjwmvxme vaccinationInfluenza VaccineKettering Health Main Campus SystemStart: 10-17-2024 End: 04-22-2839AB Pelvis transabdominal and transvaginalUltrasound pelvic with transvaginal Imaging Routine Menorrhagia with regular cycle Expected: 025, Expires: 10/17/2025[facility] SystemComment on above:Expected: 10/17/2024, Expires: 10/17/2025Start: 66-28-4446Rokeotwyu for malignant neoplasm of cervixPap SmearKettering Health Main Campus SystemStart: 17-06-0670JClQ,Tdap and Td Vaccines (1 - Tdap)DTaP,Tdap and Td Vaccines (1 - Tdap)[facility] Start: 77-13-2121Hovyxun CounselingTobacco CounselingChillicothe VA Medical CenterDBT Breast - bilateral screeningMammography screening bilateral with CAD Imaging Routine Encounter for screening mammogram for malignant neoplasm of breast Ordered: 10/17/2024[employer] Work Phone: Comment on above:Ordered: 10/17/2024 End: 73-55-7081Vrpo Risk HPV w/GenoHigh Risk HPV w/Barb Lab Routine Pap smear, as part of routine gynecological examination 1 Occurrences starting 10/18/2024 until 10/18/2025[employer] Work Phone: Comment on above:1 Occurrences starting 10/18/2024 until 10/18/2025Thin Prep Pap TestThin Prep Pap Test Pathology and Cytology Routine Pap smear, as part of routine gynecological examination 10/17/2024 12:25 PM [facility] Payers DatePayer CategoryPayerPolicy [id number] [facility] Man[facility] - [facility] [id number] [id number] Social History DateTypeDetailFacilityStart: 89-66-6257Lrbbxne smoking status NHISSmokes tobacco dailyChillicothe VA Medical CenterHistory of tobacco useCigarette SmokerUNC Health Nashtart: 62-68-7209Dvtzkik use and exposureSmokeless tobacco non-user [facility]: 77-08-7704Hnkhzjdyu beverage intakeEx-drinker (finding)[facility] SystemStart: 05-14-2020 End: 98-77-6728Nqqjqlg of Social functionUNC Health Nashtart: 05-14-2020 End: 54-26-6814Zbppksk use panelChillicothe VA Medical CenterAdolescent depression screening sgmbrpjysa5AqcGhrwht[address] [place], [place] [address]tart: 21-32-7069Pih assigned at birthNot on fileUNC Health Nashtart: 61-54-2575JjsZvalwt (finding) [facility] Clinical Notes 10-17-2024 to 10-21-2024 Note Date & PiksRzxhIvjrrxvl25-26-2285 Miscellaneous Notes* Telephone Encounter - Argenis Brooks - 10/21/2024 [...] a different RX. Please advise. Thank you * Telephone Encounter - ALEXANDRIA Schwarz - 10/21/2024 10:09 AM EDT Alternate medication sent. * Telephone Encounter - Argenis Brooks - 10/21/2024 10:09 AM EDT Advised Pt new RX was sent. 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 Pt is wondering if there is a different BC RX that can be sent. Pt states she is not against doing Depo again if there isn't a different RX. Please advise. Thank you [facility]07-21-2025 Telephone encounter Note* Telephone Encounter - ALEXANDRIA Schwarz - 10/21/2024 10:09 AM EDT Alternate medication sent. [facility]07-21-2025 Telephone encounter Note* Telephone Encounter - Argenis Brooks - 10/21/2024 10:09 AM EDT Advised Pt new RX was sent. [facility]07-18-2025 History of Present illness Narrative* Sharee Copeland RN - 10/18/2024 1:39 PM EDT HPV Order placed. - Sharee Copeland RN 10/18/24 1:47 PM documented in this encounterChillicothe VA Medical Center07-17-2025 History of Present illness Narrative* ALEXANDRIA Schwarz - 10/17/2024 11:00 AM EDT Annual Well Woman Visit 10/17/2024 Deborah Diego is a pleasant 39 y.o. 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 Follow up as needed. Await pap. Discussed ASCCP screening guidelines. Discussed taking a multivitamin. Discussed Calcium and Vitamin D for prevention of osteoporosis. Discussed recommendations for HPV vaccine between 9-45 yo. [facility] [employer]. Discussed need for yearly mammogram after 40 yo. Encouraged smoking cessation. Discussed colon cancer screening recommendations to begin at 45 yo, patient to discuss with PCP. All questions answered. MICHAELA Gupta APRN-CNP Lisa M Krotzer, APRN-CNP 10/17/24 1210 documented in this encounterChillicothe VA Medical CenterEvaluation note* Diagnosis Well woman exam with routine gynecological [...] of the cervix documented in this encounter [facility] SystemEvaluation note* Diagnosis Pap smear, as part of routine gynecological examination- Primary Screening for malignant neoplasm of the cervix documented in this encounter [facility] SystemEvaluation note* Diagnosis Encounter for initial prescription of contraceptive pills- Primary documented in this encounter [facility] CenterInstructions* Attachments The following attachments cannot be sent through Care Everywhere. * Calcium and vitamin D for bone health ([place]) * Drospirenone, ADULT ([place]) * Quitting smoking for adults ([place]) documented in this encounterKettering Health Main Campus SystemInstructionsNot on file documented in this encounterKettering Health Main Campus SystemInstructionsNot on file documented in this encounterChillicothe VA Medical CenterInstructionsNot on file documented in this encounterChillicothe VA Medical Center Summary Purpose Family History No Family History Records FoundNo Family History Records FoundNo Family History Records Found Advance Directives No Advanced Directives Records FoundNo Advanced Directives Records FoundNo Advanced Directives Records Found Additional Source Comments INFORMATION SOURCE (unrecogn ized section and content) DATE CREATED AUTHOR 04/15/2021 [facility] DATE CREATED AUTHOR AUTHOR'S ORGANIZ ATION 04/22/2021 [facility] DATE CREATED AUTHOR AUTHOR'S ORGANIZ ATION 10/23/2024 [facility] Reason for Visit (unrecogniz ed section and content) ReasonCommentsGynecologic Exam Care Teams (unrecognized sec tion and content) Team MemberRelationshipSpecialtyStart DateEnd Date [place] [address] [facility]10/07/16Team MemberRelationshipSpecialtyStart DateEnd Date No [place] [address] [facility]10/07/16Team MemberRelationshipSpecialtyStart DateEnd Date [place] [address] [facility]10/07/16 FOR RECORDS PERTAINING TO PATIENTS WHO ARE [...] BE BASED ON THE PRIMARY CLINICAL RECORDS. [facility] [employer] [facility]. provides no warranty or guarantee of the accuracy or completeness of information in this document.
== END 2025-01-27 11:03 | disposition home or self-care (01) ==
LOC: RAD 11:02
PROVIDERS: Visit Provider Podiatrist Foot & Ankle Surgery
DX: M20.11 Hallux valgus (acquired), right foot (principal); Z98.890 Other specified postprocedural states
CPT/HCPCS: 73630

== ENCOUNTER 2025-03-03 11:16 | Outpatient (OUT) | payer BC, SELFPAY ==
--- OUTSIDE RECORDS SUMMARY | 2023-03-05 19:00 | XMS_ITS | Continuity of Care Document ---
Author Organization [facility] Address [address] [place] [address] Phone Care Team Providers Care Flight Test Engineer Name Role Phone LamonthilarioYesi Unavailable Unavailable Allergies, Adverse Reactions, Alerts Substance Reaction Status Criticality No Known Allergies Active No Inform ation Medications Medication Instructions Dosage Effective Dates (start - stop) Status Comments ropinirole 1 mg tablet 1mg PO TID PRN restless legs as needed - Active melatonin 10 mg tablet 10mg 1 tablet PO QHS as needed - Active Give between 6pm and 11pm. Do not give after 11pm methocarbamol 750 mg tablet 750MG PO Q6H PRN chronic pain and muscle spasms as needed - Active Flagyl 500 mg tablet take 1 tablet by oral route every 12 hours 500 MG - Active Zithromax 500 mg tablet take 2 tablet by oral route once 1000 MG - Active Procedures Procedure Date Acute Detox Instrumentation Technologist Acute Detox Instrumentation Technologist Acute Detox Instrumentation Technologist Acute Detox Instrumentation Technologist Acute Detox Instrumentation Technologist Acute Detox Instrumentation Technologist DRUG TEST PRSMV DIR OPT OBS URINE TEST ROUTINE VENIPUNCTURE Acute Detox Instrumentation Technologist Acute Detox Instrumentation Technologist Acute Detox Instrumentation Technologist Acute Detox Instrumentation Technologist DRUG TEST PRSMV DIR OPT OBS Acute Detox Instrumentation Technologist PREV VISIT, EST, AGE 18-39 EST FP MEDICAID URINE TEST OFFICE/OUTPATIENT VISIT, EST URINE TEST Condoms OFFICE/OUTPATIENT VISIT, EST OFFICE/OUTPATIENT VISIT, EST [facility] SPECIMEN HANDLING (GC/CHLAMYDIA) Oct RISK ASSISSMENT COUNSELING AND EDUCATION CARE COORDINATION OFFICE/OUTPATIENT VISIT, NEW ROUTINE VENIPUNCTURE RISK ASSISSMENT COUNSELING AND EDUCATION CARE COORDINATION TB INTRADERMAL TEST OFFICE/OUTPATIENT VISIT, EST URINE TEST TB INTRADERMAL TEST Advance Directives Directive Yes / No Effective Date File Name No Information Encounters Encounter Description Practice Location Reason(s) For Visit Diagnoses Date Provider Providers Copied on Encounter [facility], [address] [place] [address], [id number] , tel: [phone] [facility] No Information Dec-0 4-202 3 Klidas Yesi. [address] [place] [address], [id number] , . tel: [phone] [facility], [address] [place] [address], [id number] , tel: [phone] [facility] No Information Dec-0 3-202 3 Klidas Yesi. [address] [place] [address], [id number] , . tel: [phone] [facility], [address] [place] [address], [id number] , tel: [phone] [facility] No Information Dec-0 2-202 3 Klidas Yesi. [address] [place] [address], [id number] , . tel: [phone] [facility], [address] [place] [address], [id number] , tel: [phone] [facility] No Information Dec-0 1-202 3 Obeydonte Feldman. [address] [place], [address], [place]. tel: [phone] [facility], [address] [place], [place], [id number] , [place] tel: [phone] [facility] No Information 0 3 Neil Key. [address] [place], [place], [id number] , [place]. tel: [phone] [facility], [address] [place], [place], [id number] , [place] tel: [phone] [facility] No Information 3 Neil Key. [address] [place] [address], [place], [id number] , [place]. tel: [phone] [facility], [address] [place], [place], [id number] , [place] tel: [phone] [facility] Opioid dependence with withdrawalEncounter for test, result negative 0 Pavlock DO Max. [address] [place], [place], [id number] , [place]. tel: [phone] [facility], [address] [place] [address], [place], [id number] , [place] tel: [phone] [facility] Opioid dependence with withdrawalEncounter for test, result negative 0 Pavlock DO Max. [address] [place], [place], [id number] , [place]. tel: [phone] [facility], [address] [place] [address], [place], [id number] , [place] tel: [phone] [facility] fentanyl dependence (chief complaint) Opioid dependence with withdrawal 0 Jai Childress. [address] [place] [address], [place], [id number] , [place]. tel: [phone] [facility], [address] [place] [address], [place], [id number] , [place] tel: [phone] [facility] Opioid dependence with withdrawal 0 Pavlock DO Max. [address], [place], [id number] , [place]. tel: [phone] [facility], [address], [place], [id number] , [place] tel: [phone] [facility] Opioid dependence with withdrawal 0 Pavlock DO Max. [address] [place] [address], [place], [id number] , [place]. tel: [phone] [facility], [address] [place] [address], [place], [id number] , [place] tel: [phone] [facility] Opioid dependence with withdrawalEncounter for test, result negative 0 Pavlock DO Max. [address] [place] [address], [place], [id number] , [place]. tel: [phone] [facility], [address] [place] [address], [place], [id number] , [place] tel: [phone] [facility] lab result (chief complaint) No Information 4 [facility] Abigail. [address] [place], [place], [id number] , [place]. tel: [phone] PREV VISIT, [facility], AGE 18-39 [facility], [address], [place], [id number] , [place] tel: [phone] [facility] annual visit (chief complaint) Gynecological ExaminationContact with or exposure to venereal diseases 4 [facility] Abigail. [address] [place] [address], [place], [id number] , [place]. tel: [phone] OFFICE/OUTPA TIENT VISIT, [facility], [address] [place] [address], [place], [id number] , [place] tel: [phone] [facility] No Information 2 Lamp Brenda. [address] [place], [place], [id number] , [place]. tel: [phone] OFFICE/OUTPA TIENT VISIT, [facility], [address], [place], [id number] , [place] tel: [phone] [facility] Routine PN Visit (chief complaint) Supervision of other normal 2 Jesus Gutierrez. [address] [place], [place], [id number] , [place]. tel: [phone] OFFICE/OUTPA TIENT VISIT, [facility], [address] [place], [place], [id number] , [place] tel: [phone] [facility] No Information 2 Jesus Gutierrez. [address] [place] [address], [id number] , [place]. tel: [phone] [facility], [address] [place] [address], [id number] , [place] tel: [phone] [facility] No Information 2 Visci DO Warren. [address] [place], [place], [id number] , [place]. tel: [phone] OFFICE/OUTPA TIENT VISIT, [facility], [address] [place] [address], [id number] , [place] tel: [phone] [facility] No Information 2 Jesus Gutierrez. [address] [place] [address], [id number] , [place]. tel: [phone] [facility], [address] [place] [address], [id number] , [place] tel: [phone] [facility] Screening examination for pulmonary tuberculosis 2 Visci DO Warren. [address] [place] [address], [id number] , [place]. tel: [phone] Family History Family Member Type Diagnosis Age At Onset Maternal grandmother Problem (finding) breast cancer Sister Problem (finding) Alive and well Mother Problem (finding) hypertension Maternal grandfather Problem (finding) stroke Mother Problem (finding) Alive and well Mother Problem (finding) Hepatitis C Maternal grandmother Problem (finding) malignant neopl asm of lung Maternal grandfather Problem (finding) malignant neopl asm of lung Payers Payer name Insurance type Covered green party ID Arsenio jackson(s) [employer] [id number] Social History Type Description Quantity Date Captured Comments Sex Female Smoking Status No Information Sexual Orientation Straight or heterosexual Gender Identity Female Chief Complaint And Reason For Visit No Information Reason For Referral Reason For Referral No Information Plan Of Treatment Date Type Action Status Goal Tdap. Due on due Goal Influenza vaccine. Due on due Goal VAN DRIVER exam. Due on due Goal RLP. Due on due Goal H&P. Due on due Goal Breast exam. Due on due Goal Depression screening. Due on due Goal VAN DRIVER exam. Due on due Goal Tdap. Due on due Goal Influenza vaccine. Due on due Goal Depression screening. Due on due Goal H&P. Due on due Goal Breast exam. Due on due Goal RLP. Due on due Goal Depression screening. Due on due Goal Influenza vaccine. Due on due Goal Tdap. Due on due Goal VAN DRIVER exam. Due on due Goal RLP. Due on due Goal Breast exam. Due on due Goal H&P. Due on due Goal Breast exam. Due on due Goal Tdap. Due on due Goal Influenza vaccine. Due on due Goal H&P. Due on due Goal Depression screening. Due on due Goal VAN DRIVER exam. Due on due Goal RLP. Due on due Goal Tdap. Due on due Goal Breast exam. Due on due Goal Depression screening. Due on due Goal VAN DRIVER exam. Due on due Goal H&P. Due on due Goal RLP. Due on due Goal Influenza vaccine. Due on due Goal VAN DRIVER exam. Due on due Goal H&P. Due on due Goal PPD (TST). Due on 2 due Goal Depression screening. Due on due Goal RLP. Due on due Goal Influenza vaccine. Due on due Goal Tdap. Due on due Goal Breast exam. Due on due Goal Tobacco cessation counseling completed History Of Present Illness Encounter Date Complaint History Of Prese nt Illness fentanyl dependence 34 year old female checked in to detox on Monday and reports last using fentanyl the day before. She typically snorts 1/2g/day and has been using opiates for 10 years. This is her first detox.surgical hx- c-sec, wisdom tallergies- nonemeds- nonetobacco- 1/2 ppdalcohol- noneplans upon completing detox- none Functional Status Date Functional Assessmen t No Information Instructions Date Instruction Additional Infor mation No Information Assessments Type Assessment Date No Information Patient Care Teams Name Effective Dates (start - stop) Status Members No Information
--- OUTSIDE RECORDS SUMMARY | 2025-03-03 11:20 | XMS_ITS | Clinical Summary ---
Author Organization [employer] [facility] tem Address [id number] [place] [address] Care Team Providers Care Scooping Machine Tender Name Role Phone No Pcp, No Pcp Primary Care Provider Unavailabl e Allergies No known active allergies Medications MedicationSigDispense QuantityRefillsLast FilledStart DateEnd DateStatus norethindrone (MICRONOR) 0.35 mg tablet Indications:Encounter for initial prescription of contraceptive pillsTake 1 tablet (0.35 mg total) by mouth in the morning. 28 tablet 1105Active Active Problems ProblemNoted DateDiagnosed XhywKixocl18/17/2025Overweight (BMI 25.0-29.9) 10/17/2024Degeneration, intervertebral disc, zwffiy4310/19/2022ilateral carpal tunnel aotjhiiz61/19/2023cquired hallux zhcgmj4610/19/2022union of left foot 10/19/2022ontracture of left Achilles hgozbs1510/19/2022ontracture, right ankle 10/19/2022Onychomycosis due to ehwbdzyfagxs91/19/2023 Family History Medical HistoryRelationNameCommentsNo Known ProblemsFatherCancerMotherLung cancerMotherRelationNameStatusCommentsFatherAliveMotherDeceased Social History Tobacco UseTypesPacks/DayYears UsedDateSmoking Tobacco: Every DayCigarettes Smokeless Tobacco: Never Tobacco Cessation:Ready to Q uit: Not Asked; Counseling Given: Not Answered Alcohol UseStandard Drinks/WeekCommentsNot Currently0 (1 standard drink = 0.6 oz pure alcohol)PHQ-2AnswerDate RecordedTotal Mfjnm4325ChildcareAnswerDate JnpvmdafKahvlkttoMyiozxg00/12/2019EmploymentAnswerDate RecordedEmploymentUnknown 09/12/2018Hunger ScreeningAnswerDate RecordedWithin the past 12 months we worried whether our food would run out before we got money to buy more.Never True10/17/2024Within the past 12 months the food we bought just didn't last and we didn't have money to get more.Never True10/17/2024Purpose - LifeAnswerDate RecordedPurpose and direction in zzpyYvcensm97/11/2021CommentsNoSex and Gender InformationValueDate RecordedSex Assigned at BirthNot on fileLegal Sex Deqdpu8411/06/2014 11:36 AM EDTGender IdentityNot on fileSexual OrientationNot on file Last Filed Vital Signs Vital SignReadingTime TakenCommentsBlood Vegpwnne082/68010/17/2024 11:03 AM EDT Hankv224703/20/2017 10:33 AM TTNNpapnqtcdcw69.7 ??C (98.1 ??F)03/20/2017 10:33 AM ESTRespiratory Laec507505/21/2016 10:33 AM ESTOxygen Axewnedkgw15%03/20/2017 10:33 AM ESTInhaled Oxygen Concentration--Tqjuvv42.8 kg (180 lb 6.4 oz)10/17/2024 11:03 AM ZAKLnhjgn476.4 cm (5' 5.5 )10/17/2024 11:03 AM EDTBody Mass Index29.56 10/17/2024 11:03 AM EDT Plan of Treatment Health MaintenanceDue DateLast DoneCommentsTobacco Jaumkgcdlc27/01/1986DTaP,Tdap and Td Vaccines (1 - Tdap)2004Influenza Vlslxvc4712/02/2024dult BMI Follow Up Plandult BMI Cydpmvpci22Depression Svsczdxnl15Tobacco Bkskmtfvd82Pap Smear , 10/17/2024 Medical Devices Not on file Procedures Procedure NamePriorityDate/TimeAssociated DiagnosisCommentsTHIN PREP PAP TEST Pqrpboc8010/17/2024 12:25 PM EDT Pap smear, as part of routine gynecological examination from Last 3 Months or Most Recently Relevant to Health Maintenance Results * Thin Prep Pap Test (10/17/2024 12:25 PM EDT)ComponentValueRef RangeTest Method Analysis TimePerformed AtPathologist SignatureCase ReportGynecologic Cytology Report ? Case: [id number] ? Authorizing Provider: ??ALEXANDRIA Schwarz ?? Collected: ? 10/17/2024 1225 ? Ordering Location: ? [facility] ? Received: ?10/17/2024 1226 ? Obstetrics/Gynecology ? First Screen: ?SHARLA Parker(ASCP) ? Specimen: ?Thin Prep Pap, Cervix/Endocervix ? 10/18/2024 1:16 PM [facility]ORATORYSpecimen Adequacy Satisfactory for evaluation, endocervical/transformation zone component present 10/18/2024 1:16 PM [facility] LABORATORYInterpretationNEGATIVE FOR INTRAEPITHELIAL LESION OR MALIGNANCYNEGATIVE FOR INTRAEPITHELIAL LESION OR MALIGNANCY, UNSATISFACTORY, EPITHELIAL CELL ABNORMALITY, GLANDULAR EPITHELIAL CELL ABNORMALITY. , SQUAMOUS EPITHELIAL CELL ABNORMALITY, NO DIAGNOSIS RENDERED. 10/18/2024 1:16 PM [facility] at 1316 EDTAdditional InformationThe Pap test is a screening test with an inherent, but low, probability of error. The Pap test is primarily effective for the diagnosis and prevention of squamous cell carcinoma. Regular screening iscritical for prevention. ThinPrep liquid-based slides, which meet the Emergency Specialist criteria for automated screening, have been screened by the [employer] System (as of 12/18/06) along with an additional manual rescreening by a outpatient case manager and, if indicated, by a pathologist.10/18/2024 1:16 PM [facility] LABORATORYClinical InformationLAST PAP 10 YEARS AGO10/18/2024 1:16 PM [facility] LABORATORYEmbedded Luadja0710/18/2024 1:16 PM [facility] LABORATORYSpecimen (Source)Anatomical Location / LateralityCollection Method / VolumeCollection TimeReceived TimeThin Prep (Cervix/Endocervix) 10/17/2024 12:25 PM EDT10/17/2024 12:26 PM EDT Narrative Authorizing ProviderResult TypeResult StatusFrances Bee PL SQL PROGRAMMER-GRANTS DIRECTOR PATHOLOGY/CYTOLOGY ORDERABLESFinal ResultPerforming OrganizationAddress City/State/ZIP CodePhone Number [facility] [address] [place] [address], from Last 3 Months or Most Recently Relevant to Health Maintenance Insurance * Guarantor: Francheska Diego TypeRelation to PatientDate of BirthPhone Billing AddressThird Libertarian ZnznrlwswNaaw30/01/1986 [address] [address] * Guarantor: Francheska Diego TypeRelation to PatientDate of BirthPhone Billing LoqlbibRvondLcuk14/01/1986 [address] [address] Care Teams Team MemberRelationshipSpecialtyStart DateEnd Date No Pcp, No Pcp [place]RELLA [place] [address] [facility]
--- OUTSIDE RECORDS SUMMARY | 2025-03-03 11:20 | XMS_ITS | Clinical Summary ---
Author Organization [facility] Address [address] [place] [address] Care Team Providers Care Boiler Coverer Name Role Phone Franc Coppola MD Primary Care Provider [phone] Active Problems ProblemNoted DateDiagnosed DateAcquired hallux sxsjqq9710/19/2022ilateral carpal tunnel uocwozkj12/19/2023Bunion of left foot3Contracture of left Achilles qgsapd8810/19/2022ontracture, right ankle3Degeneration, intervertebral disc, nlpujm5110/19/2022Fibrocystic breast aaxetpu7510/19/2022 Onychomycosis due to keeepkdtdimr73/19/2023Other specified related conditions, first trimester ([facility])10/19/2022Vaginal /19/2023 Family History Medical HistoryRelationNameCommentsNo Known ProblemsFatherBrain cancerMaternal GrandfatherLung cancerMaternal GrandfatherBreast cancerMaternal GrandmotherBrain cancerMotherBreast cancerMotherLung cancerMotherNo Known ProblemsPaternal GrandfatherNo Known ProblemsPaternal GrandmotherRelationNameStatusComments OpdmjrpbEfnpmv3HnonwqBgwujxzwBzgfbrzi GrandfatherDeceasedMaternal Grandmother DeceasedMotherDeceasedPaternal GrandfatherDeceasedPaternal GrandmotherDeceased Mhuuhbk1GyeSelby Social History Tobacco UseTypesPacks/DayYears UsedDateSmoking Tobacco: Every DayCigarettes Smokeless Tobacco: Never Tobacco Cessation:Ready to Q uit: Not Asked; Counseling Given: Not Answered Comments:6-10 cigs/day Alcohol UseStandard Drinks/WeekCommentsNot Currently0 (1 standard drink = 0.6 oz pure alcohol)Caffeine intake: 1-2 cups per day coffee, soda/popEducationAnswer Date RecordedWhat is the highest level of school you have completed or the highest degree you have received?Some college, no egtcja803 CommentsUnknownSex and Gender InformationValueDate RecordedSex Assigned at Not on fileLegal InoNnllec32/15/2023 7:09 PM EDTGender IdentityNot on fileSexual OrientationNot on file Last Filed Vital Signs Vital SignReadingTime TakenCommentsBlood Gbdovmka742/680/ 12:00 PM EST Pulse--Temperature--Respiratory Rate--Oxygen Saturation--Inhaled Oxygen Concentration--Ghkmpq87.7 kg (200 lb)12/16/2021 12:00 PM HAWHxnawc893.4 cm (5' 5.5 )12/16/2021 12:00 PM EDTBody Mass Index32.78012/16/2021 12:00 PM EDT Plan of Treatment Health MaintenanceDue DateLast DoneCommentsMedicare Annual Wellness (AWV) 1985Pneumococcal Vaccine: Pediatrics (0 to 5 Years) and At-Risk Patients (6 to 64 Years) (1 of 2 - PCV)2004Pap Smear2006COVID-19 Vaccine (1 - season)2024Influenza Vaccine (#1)5Cervical Cancer Gxxjxavvs68/06/2025HPV/Mibyko8051 Procedures Procedure NamePriorityDate/TimeAssociated DiagnosisCommentsTHINPREP TIS PAP REFLEX HPV MRNA E6/E7 (81070)Tzwuxko6201/07/2020 from Last 3 Months or Most Recently Relevant to Health Maintenance Results * THINPREP TIS PAP REFLEX HPV MRNA E6/E7 (06271) (01/07/2020)ComponentValueRef RangeTest MethodAnalysis TimePerformed AtPathologist SignatureCLINICAL INFORMATION:None givenNOMS LEGACY EXTERNAL LABLMP:01/05/20[facility] LEGACY EXTERNAL LABPREV. PAP:2019 NEGATIVENOMS LEGACY EXTERNAL LABPREV. BX:None givenNOMS LEGACY EXTERNAL LABSOURCE:Cervix, EndocervixNOMS LEGACY EXTERNAL LABSTATEMENT OF ADEQUACY:SEE COMMENTNOMS LEGACY EXTERNAL LABComment: Satisfactory for evaluation. Endocervical/transformation zone component absent. INTERPRETATION/RESULT:Negative for intraepithelial lesion or malignancy.[facility] LABCOMMENT:This Pap test has been evaluated with computer assisted technology.[facility] LABCYTOTECHNOLOGIST:SEE COMMENTNOMS LEGACY EXTERNAL LABComment: SHARLA AVERY(ASCP) CT screening location: [employer] [facility], [address] [place] [address]. COMMENTSEE COMMENTNOMS LEGACY EXTERNAL LABComment: EXPLANATORY NOTE: The Pap is [...] LeakeECW LABSFinal Result Performing OrganizationAddressCity/State/ZIP CodePhone Number [facility] from Last 3 Months or Most Recently Relevant to Health Maintenance Insurance Care Teams Team MemberRelationshipSpecialtyStart DateEnd Date Franc Coppola MD [address] [facility] [address] [place] [address] PCP - [facility] Centern[facility]10/19/22
--- OUTSIDE RECORDS SUMMARY | 2025-03-03 11:39 | XMS_ITS | CCD ---
Author Organization [facility] [place] [facility] Care Team Providers Care Share Holder Name Role Phone JASEN FRASER Attending Unavailable [...] (Original)norethindrone 0.35 mg oral tablet (2 sources)Start: 10-53-9630ohpk 1 tablet by mouth in the morningnorethindrone (MICRONOR) 0.35 mg tablet Indications: Encounter for initial prescription of contraceptive pills Take 1 tablet (0.35 mg total) by mouth in the morning. 28 tablet 11 10/21/2024 Active Completed/Discontinued Medications MedicationDrug Class(es)DatesSig (Normalized)Sig (Original)drospirenone, contraceptive, 4 mg (28) tablet (3 sources)Start: 10-17-2024 End: 72-59-3077yybf 1 tablet by mouth in the morningdrospirenone, contraceptive, 4 mg (28) tablet Indications: Encounter for initial prescription of con traceptive pills Take 4 mg by mouth in the morning. 84 tablet 3 10/17/2024 10/21/2024 Discontinued (Cost of medication)Start: 26-04-3275khdm 1 tablet by mouth in the morningdrospirenone, contraceptive, 4 mg (28) tablet Indications: Encounter for initial prescription of contraceptive pills Take 4 mg by mouth in the morning. 84 tablet 3 10/17/2024 Active1 ml medroxyPROGESTERone acetate 150 mg/ml injection (1 source)Progestin End: 39-57-3006qkuqbudQKCVDMXLTqmk (DEPO-PROVERA) 150 mg/mL injection Inject 150 mg into the appropriate muscle every 3 (three) months. 10/17/2024 Discontinued (Therapy completed)sulfamethoxazole 800 mg / trimethoprim 160 mg oral tablet (1 source)Dihydrofolate Reductase Inhibitor Antibacterial, Sulfonamide Antimicrobial End: 32-62-4356ukgs 1 tablet by mouth twice dailysulfamethoxazole-trimethoprim (BACTRIM DS) 800-160 mg per tablet Take 1 tablet by mouth 2 (two) times a day. 10/17/2024 Discontinued (Therapy completed) Problems Active Problems Problem ClassificationProblemDateDocumented DateEpisodic/ChronicAcquired foot deformities (5 sources)Acquired hallux valgus; Translations: [Hallux valgus (acquired), unspecified foot]Onset: 956879-89-2789VfedqwqFzeumvjkpcmpf and procreative management (3 sources)Patient encounter status; Translations: [Encounter for initial prescription of contraceptive pills]Onset: 855088-87-8480YzsubeenCissaelej disorders (2 sources)Menorrhagia; Translations: [Excessive and frequent menstruation with regular cycle]Onset: 987153-86-2530YfqjbadQndgz acquired deformities (5 sources)Contracture of joint of right ankle; Translations: [Contracture, right ankle]Onset: 310821-71-7519VjmtvwuPuulr connective tissue disease (1 source)Neuralgia and neuritis, unspecified; Translations: [NEURALGIA AND NEURITIS UNSPECIFIED]Onset: 77-66-3966OodwgsboVrieq nervous system disorders (5 sources)Bilateral carpal tunnel syndrome; Translations: [Carpal tunnel syndrome, bilateral upper limbs]Onset: 863900-61-1651NtjwldlXgazm nutritional; endocrine; and metabolic disorders (5 sources)Body mass index 25-29 - overweight; Translations: [Overweight]Onset: 755938-98-5290RqnacbafNkdme screening for suspected conditions (not mental disorders or infectious disease) (5 sources)Encounter for screening for uncertain dates; Translations: [Patient encounter status]Onset: 330405-71-0466QxlpsjipFrgaddzro and history of mental health and substance abuse codes (2 sources)Standardized adult depression screening tool completed ; Translations: [Encounter for screening fordepression]Onset: EpisodicSpondylosis; intervertebral disc disorders; other back problems (5 sources)Degeneration of lumbar intervertebral disc; Translations: [Degeneration, intervertebral disc, lumbar]Onset: hronic Substance-related disorders (5 sources)Smoker; Translations: [Nicotine dependence, unspecified, uncomplicated]Onset: 963989-59-0768RnporodZygxpqrjwehq (3 sources)LOW BACK PAIN, UNSPECIFIED; Translations: [LOW BACK PAIN, UNSPECIFIED]Onset: 04-14-2021 Past or Other Problems Problem ClassificationProblemDateDocumented DateEpisodic/ChronicAcquired foot deformities (5 sources)Bunion; Translations: [Bunion of left foot]Onset: 10-19-2022 77-23-3135FdwslnrsRniz disorders (5 sources)Mood disordersOnset: 844662-62-2798Iblzxps (5 sources)Onychomycosis due to dermatophyte ; Translations: [Tinea unguium] Onset: 620339-00-8449RzupggtvCzhka complications of (4 sources)Other specified related conditions, first trimester; Translations: [OTH SPEC PREG RELATEDCOND 1ST TRI]Onset: 18-07-4246DtnxiulsWovek connective tissue disease (5 sources)Contracture of left Achilles tendon; Translations: [Short Achilles tendon (acquired), left ankle]Onset: 146633-73-3081XihgbcaqJuuuwpzjrffj (1 source)LOW BACK PAIN, UNSPECIFIED; Translations: [LOW BACK PAIN, UNSPECIFIED] Onset: 49-85-0289Gnvrxedvnuhh (5 sources)Onset: Results Test NameValueInterpretationReference RangeFacilityHIGH RISK HPV W/GENOon 13-65-7646OLU 16NegativeNormalNegativeProMedica Hospital Ambulatory PPGComment on above:Performed By: #### HPV #### [facility] ([facility]) [address] [place] [address] VIRHPV 18NegativeNormalNegativeSheltering Arms Hospital Ambulatory PPGComment on above:Performed By: #### HPV #### [facility] ([facility]) [address] [place] [address] VIROTHER HIGH RISK HPVNegativeNormalNegativeSheltering Arms Hospital Ambulatory PPGComment on above:Result Comment: HPV types 31, 33, 35, 39, 45, 52, 56, 58, 59, 66, and 68 DNA were undetectable.Performed By: #### HPV #### [facility] ([facility]) [address] [place] [address] VIRPOCT , urineon 98-63-9880Hbdd HCG ( test) Ql (U)NegativeKettering Memorial HospitalInterpretation and review of laboratory resultsNoPenn Highlands HealthcareXR CSPINE OBL FLEX_EXTon 70-64-2802EO CSPINE OBL FLEX_EXTEXAMINATION: XR CSPINE OBL FLEX_EXT [...] authenticated by: KIRA MORENO Date: 2021-04-07 13:[address] [place], [place] [address]XR LSPINE 2_3 VIEWSon 16-48-2786ZO LSPINE 2_3 VIEWSEXAMINATION: XR LSPINE 2_3 VIEWS HISTORY: Low back pain COMPARISON: XR lumbar spine 01/07/2010 FINDINGS: BONES: No significant spondylosis, scoliosis, fracture, or visible bony lesion. DISC SPACES: Moderate narrowing L5-S1. PARASPINOUS: Negative. No paraspinous abnormality is seen. OTHER: Negative. IMPRESSION: 1. L5-S1 mild-moderate degenerative disc disease; slightly progressed. Electronically authenticated by: KIRA MORENO Date: 2021-04-07 13:58[facility] Metabolic Panelon 42-30-5820Vajoclo [Mass/Vol]8.9 mg/dL Normal8.2-10.2FMercy Health St. Joseph Warren HospitalComment on above:Performed By: #### CBC BMP, PP #### [facility] [address] [place] [address] USAChloride [Moles/Vol]102 mmol/IYcsdax53-251WoqovzdcsBrown Memorial HospitalComment on above:Performed By: #### CBC BMP, PP #### [place] [address] USACO2 [Moles/Vol]23.3 mmol/HEtxibz98.0-30.0Brown Memorial HospitalComment on above:Performed By: #### CBC BMP, PP #### [place] [address] USACreatinine [Mass/Vol]0.73 mg/dLNormal0.44-1.03Brown Memorial HospitalComment on above:Performed By: #### CBC BMP, PP #### [place] [address] USACreatinine Clr Calc Yntvswxp186.37NoGenesis HospitalComment on above:Result Comment: PERFORMED BY: [place] [address] PATHOLOGIST DIRECTOR NICU SOURAV TOBIAS M.D.Performed By: #### CBC BMP, PP #### [place] [address] USAEstimated GFR ( Winnie> 60NoGenesis HospitalComment on above:Result Comment: GFR estimated reference range: According to KDOQI guidelines, <60 ml/min/1.73m2 is sufficient to diagnose a patient with chronic kidney disease.Performed By: #### CBC, BMP, PP #### [place] [address] USAEstimated GFR (Non- Am> 60NormalBrown Memorial HospitalComment on above:Performed By: #### ALONDRA LUNA, PP #### [place] [address] USAGlucose [Mass/Vol]98 mg/rVRhsrdi85-550OzclizcktBrown Memorial HospitalComment on above:Result Comment: Random Glucose Reference Range is dependent on time and content of last meal. Glucose of more than 200 mg/dL in a nonstressed, ambulatory subject supports the diagnosis of Diabetes Mellitus. ADA recommended reference rangePerformed By: #### ALONDRA LUNA, PP #### [place] [address] USAPotassium [Moles/Vol]3.4 mmol/LLow3.5-5.1FMercy Health St. Joseph Warren HospitalComment on above:Performed By: #### ALONDRA LUNA, PP #### [place] [address] USASodium [Moles/Vol]136 mmol/TYlszzk138-021PndsreuppBrown Memorial HospitalComment on above:Performed By: #### ALONDRA LUNA, PP #### [place] [address] USAUrea nitrogen [Mass/Vol]6 mg/dLLow9-23Brown Memorial HospitalComment on above:Performed By: #### ALONDRA LUNA, PP #### [place] [address] USACOVID-19 Antigenon 02-94-2821YXKHJ-19 AntigenHealthcare Worker?: N Danelle Reference Danelle Reference Negative SARS-CoV+SARS-CoV-2 (COVID-19) Ag [Presence] in Respiratory specimen by Rapid immunoassay Negative for SARS Antigen by ANU COVID19 Blank Space Danelle Disclaimer Negative results, from patients with symptom Daenlle Disclaimer onset beyond five days, should be [...] its performance Danelle Disclaimer characteristic determined by [employer] and Danelle Disclaimer validated at [facility]. This Danelle Disclaimer test has not [...] is terminated or revoked sooner. PERFORMED BY: [facility] [address] [place] [address] PATHOLOGIST DIRECTOR NICU SOURAV TOBIAS M.D.NormalBrown Memorial HospitalComment on above: Performed By: #### COVID 19 [facility] [place], COVID-19 DANELLE #### [address] [place] [address] USACOVID-19 [facility] – ALVAon 32-92-1507TTGQ-CoV-2 (COVID-19) RNA SHRAVAN+probe Ql (Unsp spec)NegativeNormalNegativeBrown Memorial Hospital Comment on above:Order Comment: Healthcare Worker?: NResult Comment: Testing for SARS-CoV-2 by RT-PCR This test was developed and its performance characteristics determined by [employer] and validated at the [facility]. This test has not been FDA [...] is terminated or revoked sooner. PERFORMED BY: [address] [place] [address] PATHOLOGIST DIRECTOR NICU SOURAV TOBIAS M.D.Performed By: #### COVID 19 [facility], [place], COVID-19 DANELLE #### [place] [address] USACoagulation Profileon 56-73-7656vYST Coag (Bld) [Time]41.8 sHigh25.1-36.5FMercy Health St. Joseph Warren HospitalComment on above:Result Comment: PERFORMED BY: [place] [address] PATHOLOGIST DIRECTOR NICU SOURAV TOBIAS M.D.Performed By: #### CBC, BMP, PP #### [place] [address] USAINR Coag (PPP) [Relative time]1.1 {INR}NormalBrown Memorial HospitalComment on above:Result Comment: INR Therapeutic Range [...] 4.5Performed By: #### CBC, BMP, PP #### [place] [address] USAPT Coag (PPP) [Time]11.8 sNormal9.0-12.9Brown Memorial HospitalComment on above:Performed By: #### CBC, BMP, PP #### [place] [address] USAComplete Blood Count Auto Diffon 90-73-4504Zxfxnmvjb (Bld) [#/Vol]0.1 10*3/uLNormal0.0-0.2FMercy Health St. Joseph Warren HospitalComment on above:Result Comment: PERFORMED BY: [place] [address] PATHOLOGIST DIRECTOR NICU SOURAV TOBIAS M.D.Performed By: #### CBC, BMP, PP #### [address] [place] [address] USABasophils/100 WBC (Bld)0.7 %Normal.Brown Memorial HospitalComment on above:Performed By: #### CBC, BMP, PP #### [facility] [address] [place] [address] USAEosinophils (Bld) [#/Vol]0.4 10*3/uLNormal0.0-0.45 Brown Memorial HospitalComment on above:Performed By: #### CBC, BMP, PP #### [facility] [address] [place] [address] USAEosinophils/100 WBC (Bld)4.7 %Normal.Brown Memorial HospitalCommclaren bay region on above:Performed By: #### CBC, BMP, PP #### [place] [address] USAErythrocyte distribution width (RBC) [Ratio]12.6 %Normal 11.9-15.3FMercy Health St. Joseph Warren HospitalComment on above:Performed By: #### CBC, BMP, PP #### [place] [address] USAHematocrit (Bld) [Volume fraction]37.2 %Juqmeh49.0-46.4 [facility] Memorial HospitalCommclaren bay region on above:Performed By: #### CBC, BMP, PP #### [place] [address] USAHemoglobin (Bld) [Mass/Vol]13.0 g/xFPuqsam71.8-15.4 [facility] Memorial HospitalCommclaren bay region on above:Performed By: #### CBC, BMP, PP #### [place] [address] USALymphocytes (Bld) [#/Vol]2.5 10*3/uLNormal1.00-4.8 [facility] Memorial HospitalCommclaren bay region on above:Performed By: #### CBC, BMP, PP #### [place] [address] USALymphocytes/100 WBC (Bld)32.3 %Normal.Brown Memorial HospitalComment on above:Performed By: #### CBC, BMP, PP #### [facility] [address] (RBC) [Entitic mass]29.7 xqBomrfx54.7-34.3FMercy Health St. Joseph Warren HospitalComment on above:Performed By: #### CBC, BMP, PP #### [facility] [address] (RBC) [Entitic vol]85.1 kBYepdky70-350DpuxblwxiBrown Memorial HospitalComment on above:Performed By: #### CBC, BMP, PP #### [place] [address] USAMean Corpuscular HGB Conc34.9 g/pMOnsqna84.0-35.0Brown Memorial HospitalComment on above:Performed By: #### CBC, BMP, PP #### [place] [address] USAMonocytes (Bld) [#/Vol]0.6 10*3/uLNormal0.0-0.8Brown Memorial HospitalComment on above:Performed By: #### CBC, BMP, PP #### [place] [address] USAMonocytes/100 WBC (Bld)8.3 %Normal.Brown Memorial HospitalComment on above:Performed By: #### CBC, BMP, PP #### [place] [address] USANeutrophils (Bld) [#/Vol]4.2 10*3/uLNormal1.8-7.7FMercy Health St. Joseph Warren HospitalComment on above:Performed By: #### CBC, BMP, PP #### [place] [address] USANeutrophils/100 WBC (Bld)54.0 %Normal.Brown Memorial HospitalComment on above:Performed By: #### CBC, BMP, PP #### [address] [address] USANucleated RBC/100 WBC (Bld) [Ratio]0.4 %Normal0-0.5 Brown Memorial HospitalComment on above:Performed By: #### CBC, BMP, PP #### [facility] [address] [place] [address] USAPlatelet mean volume (Bld) [Entitic vol]9.0 fLNormal 6.3-10.7FMercy Health St. Joseph Warren HospitalComment on above:Performed By: #### CBC, BMP, PP #### [facility] [address] [place] [address] USAPlatelets (Bld) [#/Vol]195 10*3/oNLhecwa395-696ElhkpyxpjBrown Memorial HospitalComment on above:Performed By: #### CBC, BMP, PP #### [facility] [address] [place] [address] USARBC (Bld) [#/Vol]4.38 10*6/uLNormal3.60-5.00Brown Memorial HospitalComment on above:Performed By: #### CBC, BMP, PP #### [facility] [address] [place] [address] USAWBC (Bld) [#/Vol]7.8 10*3/uLNormal4.5-11.0Brown Memorial HospitalComment on above:Performed By: #### CBC, BMP, PP #### [facility] [address] [place] [address] USADipstick and Microscopicon 31-02-8673Jazzvxtapz (U)Clear NormalCleWright-Patterson Medical CenterComment on above:Order Comment: Name Collection Type:: Clean-Voided MidstreamPerformed By: #### UHCG, ADDONUAPLUS #### [facility] [address] [place] [address] USABacteria,UrineNone SeenNormalNone SeenBrown Memorial HospitalComment on above:Order Comment: Name Collection Type:: Clean- Voided MidstreamPerformed By: #### UHCG, ADDONUAPLUS #### [facility] [address] [place], [place] [address] USABilirubin,UrineNegativeNormalNegativeBrown Memorial HospitalComment on above:Order Comment: Name Collection Type:: Clean- Voided MidstreamPerformed By: #### UHCG, ADDONUAPLUS #### [facility] [address] [place] [address] USAColor (U)YellowNormalYellowBrown Memorial HospitalComment on above:Order Comment: Name Collection Type:: Clean-Voided MidstreamPerformed By: #### UHCG, ADDONUAPLUS #### [facility] [address] [place] [address] USAGlucose Ql (U)NormalNormalNormSheltering Arms HospitalComment on above:Order Comment: Name Collection Type:: Clean-Voided MidstreamPerformed By: #### UHCG, ADDONUAPLUS #### [facility] [address] [place] [address] USAHyaline Casts,Oyfeg1-1Kgdeke4-9IvrxjhllnBrown Memorial HospitalComment on above:Order Comment: Name Collection Type:: Clean-Voided MidstreamPerformed By: #### UHCG, ADDONUAPLUS #### [facility] [address] [place] [address] USAKetones Ql (U)NegativeNormalNegMadison HealthComment on above:Order Comment: Name Collection Type:: Clean- Voided MidstreamPerformed By: #### UHCG, ADDONUAPLUS #### [facility] [address] [place], [place] [address] USALeukocyte esterase Test strip Ql (U)NegativeNormalNegative Brown Memorial HospitalComment on above:Order Comment: Name Collection Type:: Clean-Voided MidstreamPerformed By: #### UHCG, ADDONUAPLUS #### [facility] [address] [place] [address] USANitrite,UrineNegativeNormalNegativeBrown Memorial HospitalComment on above:Order Comment: Name Collection Type:: Clean- Voided MidstreamPerformed By: #### UHCG, ADDONUAPLUS #### [place] [address] USAOccult Blood,Urine3+HighNegativeBrown Memorial HospitalComment on above:Order Comment: Name Collection Type:: Clean-Voided MidstreamPerformed By: #### UHCG, ADDONUAPLUS #### [place] [address] USApH (U)[pH]Normal5.0-9.0[facility] Comment on above:Order Comment: Name Collection Type:: Clean-Voided Midstream Performed By: #### UHCG, ADDONUAPLUS #### [place] [address] USAProtein,UrineNegativeNormalNegativeBrown Memorial HospitalComment on above:Order Comment: Name Collection Type:: Clean- Voided MidstreamPerformed By: #### UHCG, ADDONUAPLUS #### [place] [address] USARBC LM.HPF (Urine sed) [#/Area]0 /[HPF]Normal0-4FMercy Health St. Joseph Warren HospitalComment on above:Order Comment: Name Collection Type:: Clean-Voided MidstreamPerformed By: #### UHCG, ADDONUAPLUS #### [place] [address] USARenal Epithelial Cells,Qqodz3-1Szzzbz1-1IofyprmykMercy Health St. Joseph Warren HospitalComment on above:Order Comment: Name Collection Type:: Clean- Voided MidstreamPerformed By: #### UHCG, ADDONUAPLUS #### [place] [address] USASpecificy [place],Urine1.100Axdsna4.001-1.030Brown Memorial HospitalComment on above:Order Comment: Name Collection Type:: Clean-Voided MidstreamPerformed By: #### UHCG, ADDONUAPLUS #### [place] [address] USASquamous Epithelial Cell,Yitqq2-6Qbknhp1-3SmdqfcawnMercy Health St. Joseph Warren HospitalComment on above:Order Comment: Name Collection Type:: Clean-Voided MidstreamPerformed By: #### UHCG, ADDONUAPLUS #### [facility] [address] [place] [address] USAUrobilinogen,UrineNormalNormalNormalBrown Memorial HospitalComment on above:Order Comment: Name Collection Type:: Clean- Voided MidstreamPerformed By: #### UHCG, ADDONUAPLUS #### [facility] [address] [place] [address] USAWBC LM.HPF (Urine sed) [#/Area]0 /[HPF]Normal0-4FMercy Health St. Joseph Warren HospitalComment on above:Order Comment: Name Collection Type:: Clean-Voided MidstreamPerformed By: #### UHCG, ADDONUAPLUS #### [place] [address] USAECG 12 lead ECGon 70-10-2403TGB 12 lead ECGMARYMOUNT HOSPITAL Main [place] [address] [place] [address] Electrocardiograph Report Signed Patient: Francheska Diego MR#: [id number] : 1985 Acct:[id number] Age/Sex: 35 / F ADM Date: 09/05/20 Loc: ER Room: Type: [facility] ER Attending Dr: Ordering Provider: Gaston Menjivar [...] Allen DO 09/05/20 0320 Signed By: 09/06/20 1147NormSheltering Arms HospitalHCG,Quantitative on 93-58-7351ZCU,Deemzutffzqd72.26 m[iU]/mLNormalBrown Memorial HospitalComment on above:Result Comment: Approximate Approximate hCG Gestational Age Range (mIU/ml) (weeks) 0.2-1 5-50 1-2 50-500 2-3 100-5,000 3-4 500-10,000 4-5 1,000-50,000 5-6 10,000-100,000 6-8 15,000-200,000 8-12 10,000-100,000 PERFORMED BY: [place] [address] PATHOLOGIST DIRECTOR NICU SOURAV TOBIAS M.D.Performed By: #### HCGQNT #### [place] [id number] USAHCG,Urineon 48-10-1566Rkze HCG ( test) Ql (U) NegativeChildren's Hospital of ColumbusComment on above:Order Comment: Name Collection Type:: Clean-Voided MidstreamResult Comment: PERFORMED BY: [place] [address] PATHOLOGIST DIRECTOR NICU SOURAV TOBIAS M.D.Performed By: #### UHCG, ADDONUAPLUS #### [place] [id number] USASofia Ag Negativeon 34-59-0573Jgubx Ag NegativeNegative NormalNegativeBrown Memorial HospitalComment on above:Result Comment: This is a duplicate Danelle SARS Antigen (ANU) result to be used for statistical tracking purpose only. PERFORMED BY: [place] [address] PATHOLOGIST DIRECTOR NICU SOURAV TOBIAS M.D.Performed By: #### COVID 19 [facility], [place]G, COVID-19 DANELLE #### [place] [address] USAType and Screenon 57-39-4824BNL and Rh group Nom (Bld) Blood group O Rh(D) positiveNormSheltering Arms HospitalComment on above:Result Comment: PERFORMED BY: [address] [address] PATHOLOGIST DIRECTOR NICU SOURAV TOBIAS M.D.US transvaginalon 82-66-6895CZ transvaginOur Lady of Mercy Hospital Main [place] [address] [place] [address] Ultrasound Report Signed Patient: Francheska Diego MR#: [id number] : 1985 Acct:[id number] Age/Sex: 35 / F ADM Date: 09/05/20 Loc: ER Room: Type: [facility] ER Attending Dr: Ordering Provider: Gaston Menjivar Jr, MD Date of Service: 09/05/20 US/US pelvic complete: heavy bleeding recent elective Ab, r/o retained POC ([id number]) US/US transvaginal: . Copies to: Gaston Menjivar [...] Christianson Jr., M.D.09/05/2020 9:19 AM Dictation Location: [place] [address] Tech: Lulu Willoughby Transcribed By: MELITON 09/05/20918 Dictated By: Warren Christianson Jr, MD 09/05/20909 Signed By: 09/05/20918Children's Hospital of ColumbusPREG QUANT HCGon 07-28-2020 HCG NTEHE84979 mIU/mLNWexner Medical CenterComment on above:Result Comment: Verified by dilution.Performed By: #### PREGQNT #### [facility] [address] [place] [id number] John CanelaNovant Health Huntersville Medical CenterRadha Trumbull Memorial HospitalComment on above:Result Comment: 5-50 0-1 WEEK 40-300 1-2 WEEKS 100-1,000 2-3 WEEKS 500-6,000 3-4 WEEKS 5,000-200,000 1-2 MONTHS 10,000-100,000 2-3 MONTHS 3,000-50,000 2ND TRIMESTER 1,000-50,000 3RD TRIMESTERPerformed By: #### PREGQNT #### [facility] [address] [place], [place] [address] John Zamorano Vital Signs Date TimeVital SignValuePerforming JtzlbtxpxWxxhslsh89-88-3954 11:03-0400Body anzbhi841.4 Poonam Silvazer OCEAN FORWARDER-ACCOUNTING TUTOR Work Phone: [facility]07-17-2025 11:03-0400Body mass index (BMI) [Ratio]29.56 kg/m2Frances Silvazer OCEAN FORWARDER-ACCOUNTING TUTOR Work Phone: [facility]07-17-2025 11:03-0400Body zsgodh71.83 kgLisa Wheelerotzer OCEAN FORWARDER-ACCOUNTING TUTOR Work Phone: [facility]07-17-2025 11:03-0400Diastolic blood bdwvuamt42 mm[Hg]Frances Zuniga OCEAN FORWARDER-ACCOUNTING TUTOR Work Phone: [facility]07-17-2025 11:03-0400Systolic blood pdrzsaft825 mm[Hg]Frances Ricardozer OCEAN FORWARDER-ACCOUNTING TUTOR Work Phone: [facility] Encounters Encounter DateEncounter TypeCare ProviderFacilityStart: 10-21-2024 End: 02-82-5896Jzivde Eagle Zuniga APRN-ACCOUNTING TUTOR Work Phone: [facility] Obstetrics/GynecologyComment on above:Encounter for initial prescription of contraceptive pills (Primary Dx) Start: 10-18-2024 End: 49-74-0240Bwjhqdfng for gynecological examination (general) (routine) without abnormal findingsSharee Copeland [facility] SystemStart: 10-18-2024 End: 51-34-8363Hqowoi Diomeeds Copeland [facility] Obstetrics/GynecologyComment on above:Pap smear, as part of routine gynecological examination (Primary Dx)POCT , urine, Thin Prep Pap Test, High Risk HPV w/GenoStart: 10-17-2024 End: 94-71-3827Wqmbajl preventive medicine new pt age 18-39yrsFrances Zuniga APRN-ACCOUNTING TUTOR Work Phone: [facility] Obstetrics/GynecologyComment on above:Well woman exam with routine gynecological exam (Primary Dx); Encounter for screening mammogram for malignant neoplasm of breast; Encounter for initial prescription of contraceptive pills; Menorrhagia with regular cycle; Standardized adult depression screening tool completed; Screening for cervical cancer; Pap smear, as part of routine gynecological examinationStart: 10-17-2024 End: 18-73-3206Ivvoyby encounter procedureFrances Zuniga APRN-ACCOUNTING TUTOR Work Phone: [facility] SystemStart: 10-17-2024 End: 84-89-4471ljrojiklgpTFXL M KROTZERSheltering [facility]ulatory PPGStart: 10-17-2024 End: 98-24-2154Zxeyfnohs for gynecological examination (general) (routine) without abnormal findingsFrances Znuiga APRN-ACCOUNTING TUTOR Work Phone: [facility] SystemStart: 04-07-2021 End: 52-28-8888fjuwqjnmbkNW DANIEL BERRYFacility:A6Agbki: 07-28-2020 End: 28-99-0603vqlorhfgiyQRJL NATAPRAWIRAFacility:H1 Procedures DateProcedureProcedure DetailPerforming ClinicianStart: 73-57-3688Fbrmr test visual color cmprsn methsFrances Zuniga OCEAN FORWARDER-ACCOUNTING TUTOR Work Phone: Start: 24-11-3611Cxfvw depression screening assessment Frances Zuniga OCEAN FORWARDER-ACCOUNTING TUTOR Work Phone: Start: 46-87-9734Hflwnveaeti observation [Identifier] in Cervix by Cyto stainFrances Zuniga OCEAN FORWARDER-ACCOUNTING TUTOR Work Phone: Start: 65-75-0163Nobnhogv screenComment on above: Result Comment: PERFORMED BY: [facility] Latanya [place], [place] [id number] PATHOLOGIST DIRECTOR NICU SOURAV TOBIAS M.D. Plan of Treatment DateCare ActivityDetailAuthorStart: 63-92-1874Puehvufeq for malignant neoplasm of cervixPap SmearUniversity Hospitals Health System SystemStart: 45-24-9457Jjfqx BMI Follow Up PlanAdult BMI Follow Up PlanUniversity Hospitals Health System SystemStart: 56-82-3499Zmdjl BMI ScreeningAdult BMI ScreeningUniversity Hospitals Health System SystemStart: 69-89-2512Aqxuwzuvyy ScreeningDepression ScreeningUniversity Hospitals Health System SystemStart: 48-07-8849Uidexha ScreeningTobacco ScreeningProAdena [facility] SystemStart: 60-95-2537Oppbicvba vaccinationInfluenza VaccineUniversity Hospitals Health System SystemStart: 10-17-2024 End: 24-68-9333BY Pelvis transabdominal and transvaginalUltrasound pelvic with transvaginal Imaging Routine Menorrhagia with regular cycle Expected: 025, Expires: 10/17/2025[facility] SystemComment on above:Expected: 10/17/2024, Expires: 10/17/2025Start: 88-77-4025Zhjbatszw for malignant neoplasm of cervixPap SmearUniversity Hospitals Health System SystemStart: 64-05-6112YPjU,Tdap and Td Vaccines (1 - Tdap)DTaP,Tdap and Td Vaccines (1 - Tdap)[facility] Start: 59-82-4514Csmjfrm CounselingTobacco CounselingKettering Memorial HospitalDBT Breast - bilateral screeningMammography screening bilateral with CAD Imaging Routine Encounter for screening mammogram for malignant neoplasm of breast Ordered: 10/17/2024[employer] Work Phone: Comment on above:Ordered: 10/17/2024 End: 81-82-1507Mwox Risk HPV w/GenoHigh Risk HPV w/Barb Lab Routine Pap smear, as part of routine gynecological examination 1 Occurrences starting 10/18/2024 until 10/18/2025[employer] Work Phone: Comment on above:1 Occurrences starting 10/18/2024 until 10/18/2025Thin Prep Pap TestThin Prep Pap Test Pathology and Cytology Routine Pap smear, as part of routine gynecological examination 10/17/2024 12:25 PM [facility] Payers DatePayer CategoryPayerPolicy [id number] [id number] [id number] Social History DateTypeDetailFacilityStart: 98-56-5770Yvtegcz smoking status NHISSmokes tobacco dailyKettering Memorial HospitalHistory of tobacco useCigarette SmokerAtrium Health Wake Forest Baptist Wilkes Medical Centertart: 20-67-1688Zydmjpz use and exposureSmokeless tobacco non-user [facility] Centertart: 04-71-2716Friqdqcuj beverage intakeEx-drinker (finding)[facility] SystemStart: 05-14-2020 End: 00-92-5478Fzppttu of Social functionAtrium Health Wake Forest Baptist Wilkes Medical Centertart: 05-14-2020 End: 48-44-1992Pyqpajj use panelKettering Memorial HospitalAdolescent depression screening ncgpssgocp6CdjGeeqzn[address] [place], [place] [address]tart: 09-01-0704Fis assigned at birthNot on fileAtrium Health Wake Forest Baptist Wilkes Medical Centertart: 08-86-1927UnwBpxtwb (finding) [facility] Clinical Notes 10-17-2024 to 10-21-2024 Note Date & ItggDwkwKcywvnxf06-72-1437 Miscellaneous Notes* Telephone Encounter - Argenis Brooks - 10/21/2024 10:09 AM EDT Pt states she went to [facility], but her out of pocket [...] new RX was sent. documented in this encounterKettering Memorial Hospital07-21-2025 Telephone encounter Note* Telephone Encounter - Argenis ySd Brooks - 10/21/2024 10:09 AM EDT Pt states she went to [facility], but her out of pocket cost was going to be over $100. Pt is wondering if there is a different BC RX that can be sent. Pt states she is not against doing Depo again if there isn't a different RX. Please advise. Thank you [facility]07-21-2025 Telephone encounter Note* Telephone Encounter - ALEXANDRIA Schwarz - 10/21/2024 10:09 AM EDT Alternate medication sent. [facility]07-21-2025 Telephone encounter Note* Telephone Encounter - Argenis Brooks - 10/21/2024 10:09 AM EDT Advised Pt new RX was sent. [facility]07-18-2025 History of Present illness Narrative* Sharee Copeland RN - 10/18/2024 1:39 PM EDT HPV Order placed. - Sharee Copeland RN 10/18/24 1:47 PM documented in this encounterKettering Memorial Hospital07-17-2025 History of Present illness Narrative* ALEXANDRIA Schwarz - 10/17/2024 11:00 AM EDT Annual Well Woman Visit 10/17/2024 Deborah Diego is a pleasant 39 y.o. female new patient who presents for annual physician gynecologist exam. 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 Follow up as needed. Await pap. Discussed ASCCP screening guidelines. Discussed taking a multivitamin. Discussed Calcium and Vitamin D for prevention of osteoporosis. Discussed recommendations for HPV vaccine between 9-45 yo. [facility] [employer]. Discussed need for yearly mammogram after 40 yo. Encouraged smoking cessation. Discussed colon cancer screening recommendations to begin at 45 yo, patient to discuss with PCP. All questions answered. MICHAELA Gupta APRN-CNP Lisa M Krotzer, APRN-CNP 10/17/24 1210 documented in this encounterKettering Memorial HospitalEvaluation note* Diagnosis Well woman exam with routine [...] of the cervix documented in this encounter [facility] SystemEvaluation note* Diagnosis Pap smear, as part of routine gynecological examination- Primary Screening for malignant neoplasm of the cervix documented in this encounter [facility] SystemEvaluation note* Diagnosis Encounter for initial prescription of contraceptive pills- Primary documented in this encounter [facility] HospitalInstructions* Attachments The following attachments cannot be sent through Care Everywhere. * Calcium and vitamin D for bone health (Liberian) * Drospirenone, ADULT (Liberian) * Quitting smoking for adults (Liberian) documented in this encounterUniversity Hospitals Health System SystemInstructionsNot on file documented in this encounterUniversity Hospitals Health System SystemInstructionsNot on file documented in this encounterKettering Memorial HospitalInstructionsNot on file documented in this encounterKettering Memorial Hospital Summary Purpose Family History No Family History Records FoundNo Family History Records FoundNo Family History Records Found Advance Directives No Advanced Directives Records FoundNo Advanced Directives Records FoundNo Advanced Directives Records Found Additional Source Comments INFORMATION SOURCE (unrecogn ized section and content) DATE CREATED AUTHOR 04/15/2021 [facility] DATE CREATED AUTHOR AUTHOR'S ORGANIZ ATION 04/22/2021 [facility] DATE CREATED AUTHOR AUTHOR'S ORGANIZ ATION 10/23/2024 [facility] Reason for Visit (unrecogniz ed section and content) ReasonCommentsGynecologic Exam Care Teams (unrecognized sec tion and content) Team MemberRelationshipSpecialtyStart DateEnd Date [place], [place] [address] [facility]16Team MemberRelationshipSpecialtyStart DateEnd Date No Pcp, [place] [address] [facility]10/07/16Team MemberRelationshipSpecialtyStart DateEnd Date No [place] [address] [facility] FOR RECORDS PERTAINING TO PATIENTS WHO [...] BE BASED ON THE PRIMARY CLINICAL RECORDS. [facility] ttwick [facility]. provides no warranty or guarantee of the accuracy or completeness of information in this document.
--- NOTE | 2025-03-03 11:48 | XR_ITS ---
[address] [address] Patient Name: RIKY ARREAGA MRN: [id number] date: 1985 Sex: F Assigned Patient Location: [facility] Current Patient Location: [facility] Accession/Order Number: [id number] Exam Date: 03/03/2025 11:40 Report Date: 03/03/2025 16:10 At the request of: FERNANDO METZ DPIvory Procedure: XR foot RT min 3V XR foot RT min 3V 03/03/2025 11:48 AM SIGNS AND SYMPTOMS: ^Pain PROTOCOL: 3 views of the right foot COMPARISON: 01/27/2025 FINDINGS: There is hardware fixation across the first metatarsal without hardware complication or malalignment. There is mild narrowing of the second metatarsophalangeal joint similar to the prior exam. There is no fracture or dislocation. There is mild Achilles surface calcaneal spurring. XR/XR foot RT min 3V IMPRESSION: There is hardware fixation across the first metatarsal without hardware complication or malalignment. Degenerative changes are redemonstrated in the second metatarsophalangeal joint. Impression dictated by: Edgar Reyes M.D. 03/03/2025 4:10 PM Dictation Location: [place] [address] Electronically authenticated by: [id number] Date: 03/03/2025 16:10
== END 2025-03-03 11:17 | disposition home or self-care (01) ==
LOC: RAD 11:16
PROVIDERS: Visit Provider Podiatrist Foot & Ankle Surgery
DX: M79.671 Pain in right foot (principal); Z98.890 Other specified postprocedural states
CPT/HCPCS: 73630